=== PATIENT | male | born 1935 | race Caucasian/White ===

== ENCOUNTER 2017-02-14 11:07 | Inpatient (IN) | payer OTHER, MEDICARE ==
[~2017-02-14] VITALS: Ht 162.6 cm; Wt 53.1 kg
[~2017-02-14 11:07] MED LIST: ALLOPURINOL100 M1 PO; ALUPENT 20MG TA20 MG PO; ASPIRIN EC81 M1 PO; ATENOLOL25 MG PO; ATORVASTATIN CA80 M1 PO; ELIQUIS5 M1 PO; LISINOPRIL10 M1 PO; METOPROLOL SUCC50 M2 PO; MEVACOR20 MG PO; OMEPRAZOLE20 M2 PO; TOPROL XL50 M1 PO; VITAMIN B121000 MCG PO; XARELTO10 MG PO
--- NOTE | 2017-02-14 11:13 | NUR ---
81 YO MALE TO TRIAGE C/O DIFF BREATHING SINCE TUESDAY. PT ONLY TO SPEAK 2-3 WORDS AT A TIME. RA SATS 70s AT THIS TIME, PT TAKEN TO ER ROOM 12. PT RECENTLY HAD A PACEMAKER PLACED IN EARLY JANUARY 2017. DENEIS CHEST PAIN
[2017-02-14 11:45] LABS: ABSOLUTE BASOPHIL COUNT 0 /CUMM (0.0-0.2); ABSOLUTE EOSINOPHIL COUNT 0.3 /CUMM (0.0-0.7); ABSOLUTE GRANULOCYTE CT 9.6 /CUMM (1.4-6.5); ABSOLUTE LYMPH COUNT 0.5 /CUMM (1.2-3.4); ABSOLUTE MONOCYTE COUNT 0.7 /CUMM (0.10-0.60); BASOPHIL % 0.1 % (0.0-2.0); EOSINOPHIL % 2.4 % (0-5); HEMATOCRIT 43.2 % (42-52); MEAN CORPUSCULAR HGB 24.5 PG (27.0-31.0); MEAN CORPUSCULAR HGB CONC 32.1 G/DL (33.0-37.0); MEAN CORPUSCULAR VOLUME 76.3 FL (80.0-94.0); MEAN PLATELET VOLUME 7.4 FL (7.4-10.4); RBC DISTRIBUTION WIDTH 15.9 % (11.5-14.5); RED BLOOD CELL CT 5.66 /CUMM (4.70-6.10)
--- NOTE | 2017-02-14 11:50 | ED DYSPNEA/ASTHMA COMPLAINT ---
See Addendum History of Present Illness General Chief Complaint: Dyspnea (COPD, CHF, Other) Stated Complaint: SOB Source: patient, old records Exam Limitations: no limitations Vital Signs & Intake/Output Vital Signs & Intake/Output Vital Signs Date Time Temp Pulse Resp B/P B/P Pulse O2 O2 Flow FiO2 Mean Ox Delivery Rate 02/14 1327 98.9 81 22 93/54 88 Venti Mask 55% 02/14 1253 96 Venti Mask 60% 02/14 1250 98.3 87 22 93/50 98 Venti Mask 60% 02/14 1156 100 Non 100% ReBreather 02/14 1119 96.8 22 96 Non 100% ReBreather 02/14 1118 107 28 104/64 63 Room Air Allergies Coded Allergies: NO KNOWN ALLERGIES (06/04/12) Reconcile Medications Allopurinol 100 MG TABLET 2 TAB PO DAILY GOUT (Reported) Amiodarone HCl 200 MG TABLET 2 TAB PO DAILY HEART HEALTH (Reported) Apixaban (Eliquis) 5 MG TABLET 1 TAB PO BID Blood thinner Aspirin (Ecotrin*) 81 MG TABLET.DR 1 TAB PO DAILY HEART HEALTH (Reported) Atorvastatin Calcium 40 MG TABLET 1 TAB PO QPM HIGH CHOLESTROL (Reported) Furosemide 20 MG TABLET 1 TAB PO DAILY HEART HEALTH (Reported) Lisinopril 2.5 MG TABLET 1 TAB PO DAILY HIGH BLOOD PRESSURE (Reported) Omeprazole 20 MG CAPSULE.DR 1 CAP PO DAILY ACID REFLUX (Reported) Core Measure Meds Pre-Hospital [facility] Triage Note: 81 YO MALE TO TRIAGE C/O DIFF BREATHING SINCE TUESDAY. PT ONLY TO SPEAK 2-3 WORDS AT A TIME. RA SATS 70s AT THIS TIME, PT TAKEN TO ER ROOM 12. PT RECENTLY HAD A PACEMAKER PLACED IN EARLY JANUARY 2017. [facility] CHEST PAIN Triage Nurses Notes Reviewed? yes Onset: 3 days Duration: day(s):, constant, continues in ED, getting worse Timing: recent history Severity: severe Activities at Onset: none Prior Episodes/Possible Cause: illness exposure Modifying Factors: Improves With: rest. Worsens With: movement. Associated Symptoms: cough, lightheadedness, wheezing, weakness HPI: 3 days prior to admission patient complains of nonproductive cough increasing shortness of breath dyspnea on exertion. He denies fever chills nausea vomiting diarrhea abdominal pain chest pain headache dysuria rash bleeding. 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 Past History Medical History Any Pertinent Medical History? 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 AICD (automatic internal cardiac defibrillator) FH: heart attack FATHER FH: cancer MOTHER (smoker ). . FH: abdominal aortic aneurysm Hx Contributory? No Review of Systems Review of Systems Constitutional: Reports: see HPI, weakness. EENTM: Reports: no symptoms. Respiratory: Reports: see HPI, cough, short of breath, wheezing. Cardiovascular: Reports: no symptoms. GI: Reports: no symptoms. Genitourinary: Reports: no symptoms. Musculoskeletal: Reports: no symptoms. Skin: Reports: no symptoms. Neurological/Psychological: Reports: no symptoms. Hematologic/Endocrine: Reports: no symptoms. Immunologic/Allergic: Reports: no symptoms. All Other Systems: Reviewed and Negative Physical Exam Physical Exam General Appearance: well developed/nourished, alert, awake, anxious, severe distress, thin Head: atraumatic, normal appearance Eyes: Bilateral: normal appearance, PERRL, EOMI. Ears, Nose, Throat: normal pharynx, normal ENT inspection Neck: normal inspection, supple, full range of motion, no midline tenderness Respiratory: chest non-tender, decreased breath sounds, accessory muscle use, crackles, wheezing, respiratory distress Cardiovascular: regular rate/rhythm, normal peripheral pulses, norml femoral pulses equa Peripheral Pulses: 4+ carotid (R), 4+ carotid (L) Gastrointestinal: normal bowel sounds, soft, non-tender, no organomegaly Extremities: normal inspection, normal capillary refill, normal range of motion, no edema Neurologic/Psych: no motor/sensory deficits, awake, alert, oriented x 3, adventure guide II- XII nml as tested Skin: intact, normal color, warm/dry Lymphatic: no anterior cervical deandre Core Measures ACS in differential dx? Yes ASA ordered for poss ACS? No-ACS ruled out Severe Sepsis Present: No Septic Shock Present: No Progress Differential Diagnosis: AMI, CHF, COPD, pneumonia, pneumothorax Plan of Care: Orders Procedure Date/time Status Regular Diet 02/14 L Active Patient Data 02/14 1359 Active OXYGEN SETUP (GEN) 02/14 1314 Active Saline Lock 02/14 1314 Active Admit to inpatient 02/14 1314 Active Vital Signs 02/14 1314 Active Activity/Ambulation 02/14 1314 Active BLOOD CULTURE 02/14 1314 Active Code Status 02/14 1314 Active Intake & Output 02/14 1251 Active ARTERIAL BLOOD GAS (GEN) 02/14 1127 Complete BLOOD CULTURE 02/14 1127 Active TROPONIN LEVEL 02/14 112 Complete PROTHROMBIN TIME 02/14 112 Complete MAGNESIUM 02/14 112 Complete COMPREHENSIVE METABOLIC PANEL 02/14 112 Complete CBC WITHOUT DIFFERENTIAL 02/14 1127 Complete B-TYPE NATRIURETIC PEP (BNP) 02/14 112 Complete EKG 02/14 1108 Active Laboratory Tests 02/14/17 1134: Anion Gap 16, Estimated GFR > 60, BUN/Creatinine Ratio 21.8, Glucose 207 H, Calcium 8.4, Magnesium 2.2, Total Bilirubin 1.4 H, AST 37, ALT 85 H, Alkaline Phosphatase 140 H, Troponin I < 0.01, Nkb-S-Fzteefgawjn Pept 2430 H, Total Protein 5.9 L, Albumin 3.1 L, Globulin 2.8, Albumin/Globulin Ratio 1.1, PT 32.4 H, INR 3.12 H, CBC w Diff NO MAN DIFF REQ, RBC 5.66, MCV 76.3 L, MCH 24.5 L, RDW 15.9 H, MPV 7.4, Gran % 87.0 H, Lymphocytes % 4.4 L, Monocytes % 6.1, Eosinophils % 2.4, Basophils % 0.1, Absolute Granulocytes 9.6 H, Absolute Lymphocytes 0.5 L, Absolute Monocytes 0.7 H, Absolute Eosinophils 0.3, Absolute Basophils 0, PUBS MCHC 32.1 L 02/14/17 1040: pH 7.48 H, pCO2 27 L, pO2 50 *L, HCO3 20 L, ABG O2 Sat (Measured) 85.0 L, O2 Concentration % 55%, O2 Delivery Method VENTI MASK, Phlebotomy Draw Site RIGHT BRACHIAL Microbiology 02/14 1330 BLOOD: Blood Culture - RECD 02/14 1325 BLOOD: Blood Culture - RECD Diagnostic Imaging: Viewed by Me: Radiology Read. Discussed w/RAD: Radiology Read. CXR Impression: Moderate left pneumothorax shows mild increased in size since . There are bilateral airspace opacities consistent with infiltrates new since the previous study. New pacer electrodes in right atrium and right ventricle. No change in CABG findings from previous study. Initial ED EKG: normal p-waves, normal sinus rhythm, LBBB, no ST T wave changes Prior EKG: changed Rhythm Strip: normal sinus rhythm Departure Departure Time of Disposition: 1330 Disposition: STILL A PATIENT Condition: Stable Clinical Impression Primary Impression: Pneumonia Qualifiers: Pneumonia type: due to unspecified organism Laterality: bilateral Lung location: unspecified part of lung Qualified Code: J18.9 - Pneumonia, unspecified organism Secondary Impressions: Pneumothorax on left Referrals: NEEMA CRAIN MD (PCP/Family) Departure Forms: Customer Survey General Discharge Information Admission Note Spoke With: RASHAD WALKER,COURTNEY Pop Documentation of Exam: Documentation of any treatments & extenuating circumstances including Concerns Regarding Discharge (functional status, medication knowledge or non-compliance, living conditions, etc.) that warrant an admission rather than observation: Supplemental oxygen serial beta agonist nebs IV antibiotics pulmonary evaluation plastic surgery evaluation medication adjustment continuing care discharge planning Critical Care Note Critical Care Note Critical Care Time: 30-74 min (40)
[2017-02-14 11:51] LABS: PT 32.4 SEC (9.4-12.5)
--- NOTE | 2017-02-14 11:53 | NUR ---
PORT CXR AT BEDSIDE.
[2017-02-14 12:03] LABS: PLATELET COUNT 360 /CUMM (130-400)
--- NOTE | 2017-02-14 12:05 | NUR ---
TRIAGE NOTE ACKNOWLEDGED AND RN CARE ASSUMED PT EVALUATED BY DR MATT UPON ARRIVAL TO ROOM # 12. PT WAS ON 100% NRB WITH 02 SATS IN 90's. PT HAD O2 SATS IN 70'S ON R.A. IN TRIAGE. NRB WAS TAKEN OFF BY PT AND PUT ON O2 VIA N/C AT 6 LPM AND O2 SATS DECREASED TO 73%. DR MATT NOTIFIED. PT PUT ON VENTIMASK AT 50% AND RESP THERAPIST CALLED TO EVALUATE, PERFORM ABG'S AND ADMINISTER COMBI MED [facility].
--- NOTE | 2017-02-14 12:12 | NUR ---
ABG'S PERFORMED BY RESP THERAPIST MED [facility] TX'S ADMINISTERED TO PT BY SAME. PT NOW ON 60% VENTIMASK WITH O2 SATS 96%
[2017-02-14] MEDS ORDERED: LISINOPRIL2.5 M1 PO (12:42)
[2017-02-14] MEDS ORDERED: ATORVASTATIN CA40 M1 PO (12:43)
[2017-02-14] MEDS ORDERED: AMIODARONE HCL200 M1 PO (12:48)
[2017-02-14] MEDS ORDERED: FUROSEMIDE20 M1 PO (12:48)
--- NOTE | 2017-02-14 13:03 | RADIOLOGY REPORT ---
EXAMINATION: XR PORTABLE CHEST CLINICAL INFORMATION: SOB future of mesothelioma. COMPARISON: None TECHNIQUE: Portable frontal view of the chest was obtained. FINDINGS: There is a moderate left pneumothorax which was visualized as far as 06/08/2016. There is complete new opacification of the left lung and right midlung suggestive of infiltrate. Heart size and pulmonary vascularity is normal. New dual pacer electrodes are in right atrium and right ventricle.. There is mediastinal nannette and median sternotomy sutures from previous CABG. No gross bony abnormality seen. IMPRESSION: Moderate left pneumothorax shows mild increased in size since 06/16/2016. There are bilateral airspace opacities consistent with infiltrates new since the previous study. New pacer electrodes in right atrium and right ventricle. No change in CABG findings from previous study.
--- NOTE | 2017-02-14 14:31 | NUR ---
BED ASSIGNMENT 235-1
--- NOTE | 2017-02-14 14:49 | NUR ---
PT MEDICATTED WITH 1 G ROCEPHIN IV AND 100 MG DOXYCYCLINE IN 100 ML N/S OVER ONE HOUR. PT REMAINS ON 55 % VENTIMASK, O2 SATS 93-95%
--- NOTE | 2017-02-14 17:12 | NUR ---
PT ADMISSION CHANGED TO ICU
--- NOTE | 2017-02-14 17:12 | NUR ---
PLACED ON HFNC AT 40LPM WITH 55% O2 PER DR MCLAUGHLIN. PT CAMPOS WELL SATS 92%
--- NOTE | 2017-02-14 17:43 | Cons- CRCU ---
General Information and HPI Consulting Request Date of Consult: 02/14/17 Requested By: ED History of Present Illness: This is a 81-year-old unfortunate gentleman with recent diagnosis of malignant mesothelioma. He did have a biopsy of his rectal she and in the recent past she had had a CT scan of the chest abdomen and pelvis at the [facility]. It did show that he has a thick pleural rind and significant effusion suggestive of malignant mesothelioma with direct extension into his abdominal wall. The recent past his overall performance status has been poor and he has lost significant amount of weight. In the past 3 days he been having a nonproductive cough with severe dyspnea on minimal exertion as he was short of breath at rest he came into the emergency room. In the emergency room he was found to be profoundly hypoxemic with O2 sat of 77% on room air. He was treated initially with the nasal cannula now subsequently on a Ventimask saturating 85-87%. He also has history of severe cardiomyopathy with low ejection fraction. Recently he was treated at [facility] and he did have a pacemaker not a defibrillator. He also has had a slowly enlarging left-sided apical pneumothorax for many years and as he does have severe COPD and chronic lung disease and as this effusion and his small pneumothorax was stable he was treated conservatively without any surgery on her chest tube placement. No yellow-green sputum no significant fever. Patient has not been on steroids. He does have paroxysmal atrial fibrillation for which she is on amiodarone and he is on appropriate anticoagulation. Since coming here his chest x-ray showed diffuse bilateral pulmonary infiltrate with both pleural and parenchymal opacities. Patient has been on amiodarone as well. His medications were reviewed. He has had significant loss of weight, nausea, abdominal discomfort and pain and inability to eat anything. He denies fever chills nausea vomiting diarrhea abdominal pain chest pain headache dysuria rash bleeding. Reports recent placement of permanent pacemaker not a defibrillator. Allergies/Medications Allergies: Coded Allergies: NO KNOWN ALLERGIES (06/04/12) Home Med List: Allopurinol 100 MG TABLET 2 TAB PO DAILY GOUT (Reported) Amiodarone HCl 200 MG TABLET 2 TAB PO DAILY HEART HEALTH (Reported) Apixaban (Eliquis) 5 MG TABLET 1 TAB PO BID Blood thinner Aspirin (Ecotrin*) 81 MG TABLET.DR 1 TAB PO DAILY HEART HEALTH (Reported) Atorvastatin Calcium 40 MG TABLET 1 TAB PO QPM HIGH CHOLESTROL (Reported) Furosemide 20 MG TABLET 1 TAB PO DAILY HEART HEALTH (Reported) Lisinopril 2.5 MG TABLET 1 TAB PO DAILY HIGH BLOOD PRESSURE (Reported) Omeprazole 20 MG CAPSULE. 1 CAP PO DAILY ACID REFLUX (Reported) Review of Systems Review of Systems Constitutional: Reports: see HPI. 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 AICD (automatic internal cardiac defibrillator) FH: heart attack FATHER FH: cancer MOTHER (smoker ). . FH: abdominal aortic aneurysm Psychosocial History Who Do You Live With? self Services at Home: None Functional Ability ADLs Independent: dressing, eating, toileting, bathing. Ambulation: independent IADLs Independent: shopping, housework, finances, food prep, telephone, transportation , medication admin. Exam & Diagnostic Data Last 24 Hrs of Vital Signs/I&O Vital Signs Date Time Temp Pulse Resp B/P B/P Pulse O2 O2 Flow FiO2 Mean Ox Delivery Rate 02/14 1623 97.8 81 20 95/53 92 Venti Mask 55% 02/14 1327 98.9 81 22 93/54 88 Venti Mask 55% 02/14 1253 96 Venti Mask 60% 02/14 1250 98.3 87 22 93/50 98 Venti Mask 60% 02/14 1156 100 Non 100% ReBreather 02/14 1119 96.8 22 96 Non 100% ReBreather 02/14 1118 107 28 104/64 63 Room Air Intake & Output 02/14 1600 02/14 0800 02/14 0000 Intake Total 100 Output Total Balance 100 Intake, IV 100 Patient 125 lb Weight Weight Reported by Patient Measurement Method Last 48 Hrs of Labs/Tang: Laboratory Tests 02/14/17 1134: Anion Gap 16, Estimated GFR > 60, BUN/Creatinine Ratio 21.8, Glucose 207 H, Calcium 8.4, Magnesium 2.2, Total Bilirubin 1.4 H, AST 37, ALT 85 H, Alkaline Phosphatase 140 H, Troponin I < 0.01, Jbs-H-Pdbrhbxeusf Pept 2430 H, Total Protein 5.9 L, Albumin 3.1 L, Globulin 2.8, Albumin/Globulin Ratio 1.1, PT 32.4 H, INR 3.12 H, CBC w Diff NO MAN DIFF REQ, RBC 5.66, MCV 76.3 L, MCH 24.5 L, RDW 15.9 H, MPV 7.4, Gran % 87.0 H, Lymphocytes % 4.4 L, Monocytes % 6.1, Eosinophils % 2.4, Basophils % 0.1, Absolute Granulocytes 9.6 H, Absolute Lymphocytes 0.5 L, Absolute Monocytes 0.7 H, Absolute Eosinophils 0.3, Absolute Basophils 0, PUBS MCHC 32.1 L 02/14/17 1040: pH 7.48 H, pCO2 27 L, pO2 50 *L, HCO3 20 L, ABG O2 Sat (Measured) 85.0 L, O2 Concentration % 55%, O2 Delivery Method VENTI MASK, Phlebotomy Draw Site RIGHT BRACHIAL Assessment/Plan Impression/Plan: Physical Exam General Appearance: well developed/nourished, alert, awake, anxious, severe distress, thin Head: atraumatic, normal appearance Eyes: Bilateral: normal appearance, PERRL, EOMI. Ears, Nose, Throat: normal pharynx, normal ENT inspection Neck: normal inspection, supple, full range of motion, no midline tenderness Respiratory: chest non-tender, decreased breath sounds, accessory muscle use, crackles, wheezing, respiratory distress Cardiovascular: regular rate/rhythm, normal peripheral pulses, norml femoral pulses equa Peripheral Pulses: 4+ carotid (R), 4+ carotid (L) Gastrointestinal: normal bowel sounds, soft, non-tender, no organomegaly Extremities: normal inspection, normal capillary refill, normal range of motion, no edema Neurologic/Psych: no motor/sensory deficits, awake, alert, oriented x 3, 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 New dual pacer electrodes in the right atrium and right ventricle. Status post CABG. IMPRESSION This is an unfortunate 81-year-old gentleman with history of severe cardiomyopathy, paroxysmal atrial fibrillation on amiodarone and anticoagulation , previous history of coronary artery disease with CABG, cardiomyopathy with low ejection fraction, moderate mitral insufficiency with mild to moderate tricuspid insufficiency, Recently diagnosed agg malignant mesothelioma (bx done from his abd wall rectus sheath), chronic left pleural effusion now has * Severe hypoxemic respiratory failure which appears to be combination of factors which include rapidly progressing malignant mesothelioma with bilateral pleural effusion, thick pleural rind in the right side, bilateral airspace disease suggestive of either fluid overload or drug-induced lung disease versus advancing mesothelioma. Patient may be in mild congestive heart failure aswell, however his blood pressure is low with low ejection fraction. * Worsening performance status in the recent past with poor appetite related to malignant mesothelioma and severe cardiomyopathy ( recent bx at [facility] c/w agg malignant mesothelioma * Chronic left pneumothorax which is slowly increasing in size is also contributing to shortness of breath * Severe lung disease with emphysema with significant pleural blebs, significant bronchiectasis within the anterior medial aspect of the right upper lobe with rounded atelectasis and chronic pleural parenchymal scarring with previous mucous plugging and chronic lung disease * Significant valvular heart disease with mitral regurgitation and tricuspid regurgitation * Severe cardiomyopathy with low ejection fraction with valvular heart disease with low flow state with low blood pressure * Paroxysmal atrial fibrillation now appears to be in sinus rhythm with left bundle branch block * Chronic kidney disease * 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 However at this time the patient wishes to continue his rx at [facility] and he wants maximum conservative therapy. He does not wish any life- support. He does not wish noninvasive ventilation, or dialysis or mechanical ventilation or Vasopressors. He is agreeable to vasoactive agents like dobutamine. He does have rapidly advancing malignancy, cardiomyopathy and severe lung disease. I did review some of his records from the [facility] and his prognosis appears to be extremely grim and we will honor the patient's wishes. We will make him DNR/DNI with conservative care only. * Admit him to the ICU with high flow oxygen * Obtaine large bore IVs * Broad-spectrum antibiotics with ceftriaxone and Doxy. We'll give him 1 dose of Vanco * Solumedrol 80 mg 1 dose now * Albuterol and ipratropium nebulizer therapy around the clock * Discontinue amiodarone * Keep his O2 sat 92-94% * Discontinue his antihypertensive medications * Continue allopurinol and proton pump inhibitor * Continue his eloquis * Maynard catheter * CT scan of the chest abdomen and pelvis without any contrast to better assess his pleura, abdominal wall and to see if he has pulmonary edema versus pulmonary infiltrates suggestive of progressive mesothelioma or drug induced lung disease * If his blood pressure comes up we will try a dose of Lasix. * If he does not have adequate urine output in the future we'll start him on a low dose dobutamine drip at 2.5 mics and then up to 5 mics if his blood pressure were to tolerate and then institute diuretics * Cardiology evaluation * Follow sugar, will only cover him with sliding scale insulin if his blood sugars more than 250 * No CPAP or BiPAP * Vitamin B12 2000 units by mouth daily * Recheck his thyroid function tests * No therapy is necessary for his pneumothorax. 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 * Overall prognosis is dismal due to multiple terminal illnesses which the patient has. If he were to get worse then patient wishes to be made Comfort Care. I did discuss this over with his over the telephone and she is agreeable I did also discuss with the physicians at [facility] Patient is critically ill total time spent 50 minutes Consult Acknowledgment - Thank you for your consult request.
--- NOTE | 2017-02-14 18:01 | NUR ---
DR MCLAUGHLIN IN TO EVALUATE PT PT CONTINUES TO TOLERATE HI FLOW N/C. O2 SATS 88 - 91 %
--- NOTE | 2017-02-14 18:53 | NUR ---
MARTINO INSERTION ATTEMPTED WITH 16 F MARTINO UNSUCCESSFUL SECONDARY TO ENLARGED PROSTATE. MD NOTIFIED. RECEIVED ORDER TO ATTEMPT WITH COUDE TIP. 18 F COUDE TIP CATHETER INSERTED SUCCESSFULLY. 150 ML CLEAR DARK YELLOW URINE OUTPUT NOTED.
--- NOTE | 2017-02-14 19:09 | Cons- Cardiology ---
General Information and HPI Consulting Request Date of Consult: 02/14/17 Requested By: Dr. Don Mcmahan Reason for Consult: Respiratory failure; cardiomyopathy; atrial tachyarhythmias; recent PPM Source of Information: patient, old records History of Present Illness: The patient is a very nice 81 year old male known to me from multiple office visits. He is now admitted to the hospital with worsening hypoxemic respiratory failure which is likely multifactorial (underlying pulmonary disease; mesothelioma; left PTX, and possibly superimposed acute on chronic HFrEF). From a cardiac standpoint, the patient has a history of known CAD and prior CABG. More recently the patient had issues with persistent episodes of atrial fluitter with a rapid ventricular rate. This was accompanied by progressive deterioration in the patient's LV function. When last seen by me in the office, I discussed the cardiac situation in detail with the patient and his MDs at the [facility] (Dr. Rupal Rowan) and the patient elected to pursue his further cardiac interventions at the [facility] for primarily insurance related reasons. Unfortunately those records were not available to me. He did apparently have a recent PPM place (no AICD) which raises the possibility that his LV function may have improved after control of his atrial flutter. Allergies/Medications Allergies: Coded Allergies: NO KNOWN ALLERGIES (06/04/12) Home Med List: Allopurinol 100 MG TABLET 2 TAB PO DAILY GOUT (Reported) Amiodarone HCl 200 MG TABLET 2 TAB PO DAILY HEART HEALTH (Reported) Apixaban (Eliquis) 5 MG TABLET 1 TAB PO BID Blood thinner Aspirin (Ecotrin*) 81 MG TABLET.DR 1 TAB PO DAILY HEART HEALTH (Reported) Atorvastatin Calcium 40 MG TABLET 1 TAB PO QPM HIGH CHOLESTROL (Reported) Furosemide 20 MG TABLET 1 TAB PO DAILY HEART HEALTH (Reported) Lisinopril 2.5 MG TABLET 1 TAB PO DAILY HIGH BLOOD PRESSURE (Reported) Omeprazole 20 MG CAPSULE.DR 1 CAP PO DAILY ACID REFLUX (Reported) Current Medications: Current Medications Sig/Evonne Start time Last Medication Dose Route Stop Time Status Admin Albuterol Sulfate 3 ML ONCE ONE 02/14 1330 DC INH 02/14 1331 Albuterol Sulfate 3 ML ONCE ONE 02/14 1200 DC 02/14 INH 02/14 1201 1156 Ceftriaxone Sodium 0 .STK-MED ONE 02/14 1425 DC .ROUTE Ceftriaxone Sodium 1,000 MG ONCE ONE 02/14 1315 DC 02/14 IV 02/14 1316 1432 Doxycycline Hyclate 100 MG ONCE ONE 02/14 1315 DC 02/14 Sodium Chloride 100 ML IV 02/14 1420 1448 Ipratropium Pinole 2.5 ML ONCE ONE 02/14 1200 DC 02/14 INH 02/14 1201 1155 Past History Travel History Traveled to [place] past 21 day No Medical History Neurological: NONE EENT: NONE Cardiovascular: aflutter, CAD, hyperlipidemia Respiratory: NONE Gastrointestinal: NONE Hepatic: NONE Musculoskeletal: gout Blood Disorders: NONE Cancer(s): MESOTHELEOMA BLOCK TRIMMER/Reproductive: NONE Surgical History Surgical History: CABG, hernia repair-inguinal Family History Relations & Conditions If Any: BROTHER (smoker ). AICD (automatic internal cardiac defibrillator) FH: heart attack FATHER FH: cancer MOTHER (smoker ). . FH: abdominal aortic aneurysm Psychosocial History Who Do You Live With? self Services at Home: None Functional Ability ADLs Independent: dressing, eating, toileting, bathing. Ambulation: independent IADLs Independent: shopping, housework, finances, food prep, telephone, transportation , medication admin. Exam & Diagnostic Data Vital Signs and I&O Vital Signs Date Time Temp Pulse Resp B/P B/P Pulse O2 O2 Flow FiO2 Mean Ox Delivery Rate 02/14 1818 81 22 98/52 91 Nasal 55% Cannula 02/14 1623 97.8 81 20 95/53 92 Venti Mask 55% 02/14 1327 98.9 81 22 93/54 88 Venti Mask 55% 02/14 1253 96 Venti Mask 60% 02/14 1250 98.3 87 22 93/50 98 Venti Mask 60% 02/14 1156 100 Non 100% ReBreather 02/14 1119 96.8 22 96 Non 100% ReBreather 02/14 1118 107 28 104/64 63 Room Air Intake & Output 02/14 1600 02/14 0802/14 0000 02/13 1600 02/13 0800 02/13 0000 Intake Total 100 Output Total Balance 100 Intake, IV 100 Patient 125 lb Weight Weight Reported by Patient Measurement Method Physical Exam: General Appearance: This ill appearing WM; well developed, alert, awake, anxious , severe distress Head: normal Bilateral: normal appearance, PERRL, EOMI. Ears, Nose, Throat: normal pharynx, normal ENT inspection Neck: normal inspection, supple, JVP ill defined; carotids normal Respiratory: chest non-tender, decreased breath sounds, accessory muscle use, crackles, wheezing, respiratory distress Cardiovascular: regular rate/rhythm, no audible murmurs Peripheral Pulses: normal bilaterally Gastrointestinal: normal bowel sounds, soft, non-tender, no organomegaly Extremities: normal inspection, normal capillary refill, normal range of motion, no edema Neurologic/Psych: non focal Labs/Tang Results: Laboratory Tests 02/14 02/14 1134 1040 Blood Gas pH (7.35 - 7.45 PH) 7.48 H pCO2 (35 - 45 TORR) 27 L pO2 (80 - 100 TORR) 50 *L HCO3 (21 - 28 MEQ/L) 20 L ABG O2 Sat (Measured) (>96.0 %) 85.0 L O2 Concentration % 55% O2 Delivery Method VENTI MASK Chemistry Sodium (137 - 145 mmol/L) 133 L Potassium (3.5 - 5.1 mmol/L) 4.6 Chloride (98 - 107 mmol/L) 94 L Carbon Dioxide (22 - 30 mmol/L) 23 Anion Gap (5 - 16) 16 BUN (9 - 20 mg/dL) 24 H Creatinine (0.7 - 1.2 mg/dL) 1.1 Estimated GFR (>60 ml/min) > 60 BUN/Creatinine Ratio (7 - 25 %) 21.8 Glucose (65 - 99 mg/dL) 207 H Calcium (8.4 - 10.2 mg/dL) 8.4 Magnesium (1.6 - 2.3 mg/dL) 2.2 Total Bilirubin (0.2 - 1.3 mg/dL) 1.4 H AST (17 - 59 U/L) 37 ALT (21 - 72 U/L) 85 H Alkaline Phosphatase (< 127 U/L) 140 H Troponin I (<0.11 ng/ml) < 0.01 [id number]-[id number] Pept (<125 pg/mL) 2430 H Total Protein (6.3 - 8.2 g/dL) 5.9 L Albumin (3.5 - 5.0 g/dL) 3.1 L Globulin (1.9 - 4.2 gm/dL) 2.8 Albumin/Globulin Ratio (1.1 - 2.2 %) 1.1 Coagulation PT (9.4 - 12.5 SEC) 32.4 H INR (0.90 - 1.17) 3.12 H Hematology CBC w Diff NO MAN DIFF REQ WBC (4.8 - 10.8 /CUMM) 11.0 H RBC (4.70 - 6.10 /CUMM) 5.66 Hgb (14.0 - 18.0 G/DL) 13.9 L Hct (42 - 52 %) 43.2 MCV (80.0 - 94.0 FL) 76.3 L MCH (27.0 - 31.0 PG) 24.5 L RDW (11.5 - 14.5 %) 15.9 H Plt Count (130 - 400 /CUMM) 360 MPV (7.4 - 10.4 FL) 7.4 Gran % (42.2 - 75.2 %) 87.0 H Lymphocytes % (20.5 - 51.1 %) 4.4 L Monocytes % (1.7 - 9.3 %) 6.1 Eosinophils % (0 - 5 %) 2.4 Basophils % (0.0 - 2.0 %) 0.1 Absolute Granulocytes (1.4 - 6.5 /CUMM) 9.6 H Absolute Lymphocytes (1.2 - 3.4 /CUMM) 0.5 L Absolute Monocytes (0.10 - 0.60 /CUMM) 0.7 H Absolute Eosinophils (0.0 - 0.7 /CUMM) 0.3 Absolute Basophils (0.0 - 0.2 /CUMM) 0 PUBS MCHC (33.0 - 37.0 G/DL) 32.1 L Miscellaneous Phlebotomy Draw Site RIGHT BRACHIAL Diagnostic Data CXR Results FINDINGS: There is a moderate left pneumothorax which was visualized as far as 06/08/2016. There is complete new opacification of the left lung and right midlung suggestive of infiltrate. Heart size and pulmonary vascularity is normal. New dual pacer electrodes are in right atrium and right ventricle.. There is mediastinal nannette and median sternotomy sutures from previous CABG. No gross bony abnormality seen. IMPRESSION: Moderate left pneumothorax shows mild increased in size since 06/16/2016. There are bilateral airspace opacities consistent with infiltrates new since the previous study. New pacer electrodes in right atrium and right ventricle. No change in CABG findings from previous study. Assessment/Plan Assessment/Plan Assessment: 1. Worsening respiratory distress / hypoxemic respiratory failure - likely multifactorial as noted above 2. History of atrial flutter 3. Recent PPM placement 4. Mesothelioma 5. History of CAD / CABG 6. Cardiomyopathy; ischemic vs tachycardiac mediated 7. Worsening left PTX Recommdations: - Telemetry monitoring - Review cardiology records from [facility] - Continue all management and supportive care as per the Pulmonary / Critical care team - Repeat echocardiogram to reassess LV systolic function and severity of MR - Remember that the patient has a history of rapid atrial flutter which was poorly tolerated with associated deterioration of his LV function. The amiodarone may be assisting with maintenance of sinus rhythm and , even though holding it may be flores from a pulmonary standpoint, discontinuation could precipitate recurrence of AF and further deterioration in LV status and hemodynamic status. - Lisinopril and lasix on hold Consult Acknowledgment - Thank you for your consult request.
--- NOTE | 2017-02-14 20:30 | History & Physical ---
General Information and HPI MD Statement: I have seen and personally examined LISA ELDER and documented this H&P. The patient is a 81 year old M who presented with a patient stated chief complaint of [shortness of breath]. Source of Information: patient, old records History of Present Illness: Patient is 81-year-old male with past medical history of mesothelioma, significant cardiomyopathy with low EF ,pacemaker placement(placed 8 days ago at the [facility]), hypertension, CAD status post CABG, gout, atrial flutter on Eliquis, left-sided pneumothorax sustained after a fall in June 2015(managed conservatively at the hospital), heart failure with preserved ejection fraction who presented to the ED with a chief complaint of shortness of breath and nonproductive cough for the past 3 days. Patient reports that he had a pacemaker insertion a day ago at [facility]. Post the procedure he has been feeling weak, short of breath and having nonproductive cough. His symptoms got worse and over the past 3 days he hasn't been able to walk more than 2-3 feet. He denies any fever, chills, nausea, vomiting, abdominal pain, chest pain, urinary or bowel symptoms. He admits to having lost significant amount of weight in the past few months after his diagnosis of malignant mesothelioma. In the ED patient was found to have a temperature of 96.8, pulse 117, respiration 28, blood pressure 104/64 and saturating 63% on room air. He was put on 100% nonrebreather with improvement of sats to 96% Labs showed a white count of 11 with no bands, H&H 13.9/43.2, sodium 133, potassium 4.6, bun 24, creatinine 1.1, glucose 207, total bili 1.4, AST 37, ALT 85, alkaline phosphatase 140, troponin 0.01, proBNP 2430, INR 3.12 Chest x-ray showed moderate left pneumothorax mild increased in size since 06/16.There are bilateral airspace opacities consistent with infiltrates new since the previous study. New pacer electrodes in right atrium and right ventricle. Patient received neb treatments IV doxycycline, IV ceftriaxone in the ED. Allergies/Medications Allergies: Coded Allergies: NO KNOWN ALLERGIES (06/04/12) Home Med list Allopurinol 100 MG TABLET 2 TAB PO DAILY GOUT (Reported) Amiodarone HCl 200 MG TABLET 2 TAB PO DAILY HEART HEALTH (Reported) Apixaban (Eliquis) 5 MG TABLET 1 TAB PO BID Blood thinner Aspirin (Ecotrin*) 81 MG TABLET. 1 TAB PO DAILY HEART HEALTH (Reported) Atorvastatin Calcium 40 MG TABLET 1 TAB PO QPM HIGH CHOLESTROL (Reported) Furosemide 20 MG TABLET 1 TAB PO DAILY HEART HEALTH (Reported) Lisinopril 2.5 MG TABLET 1 TAB PO DAILY HIGH BLOOD PRESSURE (Reported) Omeprazole 20 MG CAPSULE. 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 AICD (automatic internal cardiac defibrillator) FH: heart attack FATHER FH: cancer MOTHER (smoker ). . FH: abdominal aortic aneurysm Psychosocial History Who Do You Live With? self Services at Home: None Functional Ability ADLs Independent: dressing, eating, toileting, bathing. Ambulation: independent IADLs Independent: shopping, housework, finances, food prep, telephone, transportation , medication admin. Review of Systems Review of Systems Constitutional: Reports: malaise, weakness. EENTM: Reports: no symptoms. Cardiovascular: Reports: orthopena. Respiratory: Reports: cough, short of breath, sputum production. GI: Reports: no symptoms. Genitourinary: Reports: no symptoms. Musculoskeletal: Reports: no symptoms. Skin: Reports: no symptoms. Exam & Diagnostic Data Last 24 Hrs of Vital Signs/I&O Vital Signs Date Time Temp Pulse Resp B/P B/P Pulse O2 O2 Flow FiO2 Mean Ox Delivery Rate 02/14 2039 97.4 82 22 101/57 92 Nasal 55% Cannula 02/14 1922 83 20 97/58 92 Nasal 55% Cannula 02/14 1818 81 22 98/52 91 Nasal 55% Cannula 02/14 1623 97.8 81 20 95/53 92 Venti Mask 55% 02/14 1327 98.9 81 22 93/54 88 Venti Mask 55% 02/14 1253 96 Venti Mask 60% 02/14 1250 98.3 87 22 93/50 98 Venti Mask 60% 02/14 1156 100 Non 100% ReBreather 02/14 1119 96.8 22 96 Non 100% ReBreather 02/14 1118 107 28 104/64 63 Room Air Intake & Output 02/14 1600 02/14 0800 02/14 0000 Intake Total 100 Output Total Balance 100 Intake, IV 100 Patient 56.699 kg Weight Weight Reported by Patient Measurement Method Physical Exam General Appearance Alert, Oriented X3, Cooperative, Moderate Distress Skin No Rashes, No Breakdown, No Significant Lesion Skin Temp/Moisture Exam: Warm/Dry Sepsis Skin Exam (color): Normal for Ethnicity HEENT Atraumatic, PERRLA, EOMI, OXYGEN VIA NASAL CANNULA Neck Supple, No JVD Lymphatic Cervical nl Cardiovascular Regular Rate, Normal S1, Normal S2 Lungs BILATERAL BASAL CRACKLES Abdomen Normal Bowel Sounds, Soft, No Tenderness Neurological Normal Tone, Cranial Nerves 3-12 NL Extremities No Clubbing, No Cyanosis, No Edema, Normal Pulses Last 24 Hrs of Labs/Tang: Laboratory Tests 02/14/17 1134: Anion Gap 16, Estimated GFR > 60, BUN/Creatinine Ratio 21.8, Glucose 207 H, Calcium 8.4, Magnesium 2.2, Total Bilirubin 1.4 H, AST 37, ALT 85 H, Alkaline Phosphatase 140 H, Troponin I < 0.01, Gxy-T-Ftjftufaeol Pept 2430 H, Total Protein 5.9 L, Albumin 3.1 L, Globulin 2.8, Albumin/Globulin Ratio 1.1, PT 32.4 H, INR 3.12 H, CBC w Diff NO MAN DIFF REQ, RBC 5.66, MCV 76.3 L, MCH 24.5 L, RDW 15.9 H, MPV 7.4, Gran % 87.0 H, Lymphocytes % 4.4 L, Monocytes % 6.1, Eosinophils % 2.4, Basophils % 0.1, Absolute Granulocytes 9.6 H, Absolute Lymphocytes 0.5 L, Absolute Monocytes 0.7 H, Absolute Eosinophils 0.3, Absolute Basophils 0, PUBS MCHC 32.1 L 02/14/17 1040: pH 7.48 H, pCO2 27 L, pO2 50 *L, HCO3 20 L, ABG O2 Sat (Measured) 85.0 L, O2 Concentration % 55%, O2 Delivery Method VENTI MASK, Phlebotomy Draw Site RIGHT BRACHIAL Microbiology 02/14 1330 BLOOD: Blood Culture - RECD 02/14 1325 BLOOD: Blood Culture - RECD Diagnostic Data CXR Results FINDINGS: There is a moderate left pneumothorax which was visualized as far as 06/08/2016. There is complete new opacification of the left lung and right midlung suggestive of infiltrate. Heart size and pulmonary vascularity is normal. New dual pacer electrodes are in right atrium and right ventricle.. There is mediastinal nannette and median sternotomy sutures from previous CABG. No gross bony abnormality seen. IMPRESSION: Moderate left pneumothorax shows mild increased in size since 06/16/2016. There are bilateral airspace opacities consistent with infiltrates new since the previous study. New pacer electrodes in right atrium and right ventricle. No change in CABG findings from previous study. Assessment/Plan Assessment: Patient is 81-year-old male with past medical history of mesothelioma, significant cardiomyopathy with low EF ,pacemaker placement(placed 8 days ago at the [facility]), hypertension, CAD status post CABG, gout, atrial flutter on Eliquis, left-sided pneumothorax sustained after a fall in June 2015(managed conservatively at the hospital), heart failure with preserved ejection fraction who presented to the ED with a chief complaint of shortness of breath and nonproductive cough for the past 3 days. In the ED patient was found to have a temperature of 96.8, pulse 117, respiration 28, blood pressure 104/64 and saturating 63% on room air. He was put on 100% nonrebreather with improvement of sats to 96% Problem list * Acute hypoxic respiratory failure likely multifactorial due to malignant mesothelioma, worsening left-sided pneumothorax, acute on chronic HFwPEF, ? Pneumonia/bronchitis, amiodarone-induced lung toxicity * Sepsis(tachycardia, tachypnea, evidence of infiltrate on CXR). However patient does not appear infected given lack of productive fever/ sputum * History of atrial flutter on Eliquis * Recent pacemaker placement at [facility](8 days ago) * Malignant mesothelioma * Cardiomyopathy(EF 20-25% with global hypokinesia) * Heart failure with reduced ejection fraction * Worsening Left-sided pneumothorax * History of coronary artery disease status post CABG * Severe lung emphysema * Chronic kidney disease * Transaminitis * History of gout PLAN: * Patient admitted to the ICU for close monitoring * Vitals per protocol * We'll continue high flow oxygen to keep saturations above 92% * TRC nebs [id number] * IV ceftriaxone and doxycycline. 1 dose of IV vancomycin was given since he had recent instrumentation and hospitalization. * We will hold off on fluids given patient appears to be fluid overloaded time. * Pancultures ordered * Solu-Medrol 80 mg IV 1 dose. Will not continue steroids for now as patient has no significant wheezing. * No Lasix at this point given labile blood pressure. We will consider one dose of IV Lasix if blood pressure tolerates. * Holding her blood pressure medications. * We will hold statin considering transaminitis. We will trend LFTs. Alkaline phosphatase elevation likely secondary to malignancy. * We will continue PPI and allopurinol * Patient's chest x-ray clearly showed evidence of fibrosis questionable amiodarone toxicity . We will hold amiodarone at this point. * We will continue Eliquis for paroxysmal A. fib/flutter. Patient at this point in sinus rhythm. * If patient does not have adequate urine output, plan is to start him on a dobutamine drip at 2.5 mics and then titrate up to 5 as pressure tolerates and start him on Lasix * We will repeat echocardiogram to assess the LV function. * Strict I's and O's, Maynard catheter placed. * CT chest/abdomen/pelvis to evaluate advancing malignant melanoma. * Conservative management of pneumothorax. No aggressive measures. * We will try to obtain records from [facility]. * Extensive discussion with family regarding goals of care by Dr. Mclaughlin. Patient does not want any kind of aggressive measures including central line, pressors, BiPAP. Family is aware of the grave prognosis. Plan is to change patient to comfort care if clinical condition worsens. * DVT prophylaxis Eliquis * DNR/DNI * Mild pain pathway * Heart healthy diet As Ranked By This Provider Problem List: 1. Pneumothorax on left 2. Gout 3. HLD (hyperlipidemia) 4. CAD (coronary artery disease) of artery bypass graft 5. Ischemic cardiomyopathy 6. Congestive heart failure 7. Transaminitis Core Measures/Miscellaneous Acute Coronary Syndrome ACS Diagnosis: No Cerebrovascular Accident CVA/TIA Diagnosis: No Congestive Heart Failure CHF Diagnosis: Yes Last Known EF %: 20 DENZEL/ARB for EF <40%: No (CKD) No DENZEL/ARB d/t: Renal Failure/Azotemia Venous Thromboembolism VTE Risk Factors: Age > 40, Malignancy Myelo Disorder No Mech VTE prophylaxis d/t: No contraindications No VTE Pharm Prophylaxis d/t: No contraindications VTE Diagnosis: No VTE Type: NONE VTE Confirmed by (Test): NONE Severe Sepsis Severe Sepsis Present: No Septic Shock Septic Shock Present: No Miscellaneous Documentation Attending Case Discussed With: ERI MCLAUGHLIN MD Primary Care Physician: NEEMA CRAIN MD Patient sees these Specialists NONE Level of Patient Care: Critical Care (CRI)
--- NOTE | 2017-02-14 21:17 | NUR ---
PT ADMITTED TO ICU, ROOM # 104. ORAL REPORT GIVEN TO KELLE WARE PT MEDICATED WITH 80 MG SOLUMEDROL IV AND 1 G VANCOMYCIN IVSS. PT WILL GO TO CT SCAN, THEN TO ICU. PT'S CLINICAL STATUS UNCHANGED.
--- NOTE | 2017-02-14 21:45 | NUR ---
PT TAKEN TO CT SCAN AND THEN TO ICU
--- NOTE | 2017-02-14 22:45 | CT SCAN REPORT ---
EXAMINATION: CT CHEST WITHOUT CONTRAST CT ABDOMEN AND PELVIS WITHOUT CONTRAST CLINICAL INFORMATION: Shortness of breath. Evaluate for pulmonary infiltrates versus pulmonary edema. Abdominal wall infiltrates. History of mesothelioma. COMPARISON: Multiple priors, most recent CT chest dated 02/10/2016 and chest radiograph done earlier the same day. TECHNIQUE: Contiguous axial thin section helical images of the chest, abdomen and pelvis were performed without contrast. The data set was reformatted in the coronal and sagittal planes and reviewed on an independent workstation. DLP: 371.06 mGy-cm FINDINGS: LUNGS/PLEURA: A left apical pneumothorax is redemonstrated, increased in prominence when compared to the prior examination and now extending along the entire anterior aspect of the lung. Significant interval increase in bilateral bullous emphysema, most prominent within the right lower lobe. There are new diffuse bilateral ground-glass opacities. This could represent fluid overload. An infectious process cannot be entirely excluded. There are bilateral fibrotic changes, increased since the prior examination. There is a small right-sided pleural effusion. Bilateral pleural thickening is redemonstrated. MEDIASTINUM: Post CABG changes including sternal wires are redemonstrated. There is a left chest wall pacemaker with its leads terminating within the right heart. There is persistent mild cardiomegaly. There is no pericardial effusion. Atherosclerotic calcifications are seen within the thoracic aorta. AXILLA: No lymphadenopathy. LIVER, GALLBLADDER, BILIARY TREE: There is no focal hepatic lesion. The liver is normal in size and attenuation. The gallbladder is unremarkable. There is no cholelithiasis, gallbladder wall thickening, or pericholecystic fat stranding. PANCREAS: Mildly atrophic. SPLEEN: Normal ADRENAL GLANDS: Normal KIDNEYS, URETERS AND BLADDER: The kidneys are symmetric and of normal shape and size. There is no hydronephrosis or nephrolithiasis. There is no hydroureter. The urinary bladder is partially distended with a Maynard catheter in place. Air is seen within the urinary bladder, likely related to the Maynard catheter. BOWEL LOOPS: There is no small or large bowel obstruction. There are diffuse sigmoid colon diverticula without adjacent inflammatory change to suggest acute diverticulitis. The appendix is normal. There is no intra-abdominal free air or free fluid. LYMPHOVASCULAR STRUCTURES: Diffuse atherosclerotic calcifications are seen throughout the abdominal aorta and its branch vessels. There is focal abdominal aortic dilatation just proximal to the bifurcation with the aortic lumen measuring up to 2.9 cm. PELVIC VISCERA: The prostate and seminal vesicles are unremarkable. BONES: Bridging osteophytes are noted within the thoracic spine. There are severe degenerative changes within the lower lumbar spine, most prominent at L2-L3 and L3-L4. ADDITIONAL FINDINGS: None IMPRESSION: 1. Left apical pneumothorax, increased in size since the prior examination dated 06/16/2016. Significant interval increase in bilateral bullous emphysema, most prominent within the right lung base. 2. New diffuse bilateral ground-glass opacities, which could represent fluid overload. An infectious process cannot be excluded. Bilateral fibrotic changes, increased since the prior examination. 3. Small right-sided pleural effusion. Redemonstration of bilateral pleural thickening. 4. Prominent sigmoid diverticulosis without adjacent inflammatory change to suggest acute diverticulitis. 5. Diffuse atherosclerotic calcifications throughout the abdominal aorta and its branch vessels. Focal abdominal aortic aneurysm just proximal to the bifurcation which measures up to 2.9 cm. These findings were discussed with Dr. Gonzalez via telephone at 10:41 PM on 02/14/2017.
--- NOTE | 2017-02-14 23:55 | NUR ---
2210-RECIEVED PT FROM ER. A/OX3 CHITIMACHA. MOVES ALL EXT. NSR 80'S SBP 130. NO EDEMA. BLANCHABLE REDNESS TO COCCYX. HIGH FLOW NC 40L/55% O2 AT 88-90%, INCREASED TO 40L/60%, O2 AT NOW 92%. DIMINISHED ALL LUNG MORALES. DENIES PAIN. +BS. BOX LUNCH PROVIDED. WILL CONT TO MONITOR.
[2017-02-15] VITALS: BP 90/54
--- NOTE | 2017-02-15 01:11 | NUR ---
URINE OUTPUT LAST 2 HOURS=10ML. MD BANDA MADE AWARE. AWAITING ORDERS.
[2017-02-15 05:08] LABS: ABSOLUTE BASOPHIL COUNT 0 /CUMM (0.0-0.2); ABSOLUTE LYMPH COUNT 0.3 /CUMM (1.2-3.4); BASOPHIL % 0 % (0.0-2.0); MEAN CORPUSCULAR HGB 24.8 PG (27.0-31.0)
[2017-02-15 05:14] LABS: ABSOLUTE EOSINOPHIL COUNT 0 /CUMM (0.0-0.7); ABSOLUTE GRANULOCYTE CT 8.3 /CUMM (1.4-6.5); ABSOLUTE MONOCYTE COUNT 0.2 /CUMM (0.10-0.60); EOSINOPHIL % 0 % (0-5); MEAN CORPUSCULAR HGB CONC 32.6 G/DL (33.0-37.0); MEAN PLATELET VOLUME 7.6 FL (7.4-10.4); PLATELET COUNT 283 /CUMM (130-400); RBC DISTRIBUTION WIDTH 16.1 % (11.5-14.5); RED BLOOD CELL CT 4.78 /CUMM (4.70-6.10); WHITE BLOOD CELL COUNT 8.8 /CUMM (4.8-10.8)
[2017-02-15 05:23] LABS: HEMATOCRIT 36.3 % (42-52)
--- NOTE | 2017-02-15 06:43 | PN- Resident CRCU ---
Subjective HPI/CRCU Issues: Patient seen and examined at bedside this AM. He was sitting in bed requiring 60 % FiO2 via HFNC. He denies worsening shortness of breath, chest pain, palpitations or pain. He was started on IV dobutamine last night due to low urine output to about 5 cc/h. His urine output responded well and nursing reported increase to about 30 cc/h after initiation of dobutamine. His BP remains borderline. 24 Hour Events: campus monitor: No overnight events. Vital signs last 24 hours: T 97.8-99.4, HR 70-81, RR 24-30, BP 87-137/48-64, O2 saturation 91-94% 55-60% HFNC. Total intake last 24 hours: 342 cc Total output last 24 hours: 375 cc Objective Vital Signs & I&O Last 8 Hrs of Vitals and I&O: Intake & Output 02/15 1600 Intake Total Output Total Balance Patient 129 lb Weight T 97.8-99.4, HR 70-81, RR 24-30, BP 87-137/48-64, O2 saturation 91-94% 55-60% HFNC. Exam General Appearance: well developed/nourished, alert, comfortable, mild distress Head: atraumatic, normal appearance Ears, Nose, Throat: normal pharynx, hearing grossly normal Neck: normal inspection, supple Respiratory: chest non-tender, Mild respiratory distress, decreased breath sounds bilateral bases Cardiovascular: regular rate/rhythm Gastrointestinal: normal bowel sounds, soft, non-tender Extremities: normal inspection, no edema Cranial Nerves: normal hearing, normal speech Skin: intact, warm/dry Nutrition Nutrition: P.O. diet Current Medications: Current Medications Sig/Evonne Start time Last Medication Dose Route Stop Time Status Admin Acetaminophen 325 MG Q6P PRN 02/14 2015 AC PO Albuterol Sulfate 3 ML TID 02/15 1600 AC INH Albuterol Sulfate 3 ML ONCE ONE 02/14 1330 DC INH 02/14 1331 Albuterol Sulfate 3 ML ONCE ONE 02/14 1200 DC 02/14 INH 02/14 1201 1156 Allopurinol 200 MG DAILY 02/15 1000 AC 02/15 PO 0823 Apixaban 5 MG BID 02/14 2200 AC 02/15 PO 0823 Aspirin Buffered 81 MG DAILY 02/15 1000 AC 02/15 PO 0823 Atorvastatin Calcium 40 MG QPM 05/29 2200 CAN PO Ceftriaxone Sodium 1,000 MG 1400 02/15 1400 AC IV Ceftriaxone Sodium 1,000 MG DAILY 02/15 1000 DC IV Ceftriaxone Sodium 0 .STK-MED ONE 02/14 1425 DC .ROUTE Ceftriaxone Sodium 1,000 MG ONCE ONE 02/14 1315 DC 02/14 IV 02/14 1316 1432 Cyanocobalamin 2,000 MCG DAILY 02/15 1000 AC 02/15 PO 0824 Dobutamine HCl 250 MG Q14H 02/15 0945 AC Dextrose/Water 250 ML IV Dobutamine HCl 250 MG Q24H 02/15 0145 DC 02/15 Dextrose/Water 250 ML IV 0215 Dobutamine HCl 250 MG ONCE ONE 02/15 0115 CAN Dextrose/Water 250 ML IV 02/15 0116 Doxycycline Hyclate 100 MG 1400 02/15 1400 AC Sodium Chloride 100 ML IV Doxycycline Hyclate 100 MG DAILY 02/15 1000 DC Sodium Chloride 100 ML IV Doxycycline Hyclate 100 MG ONCE ONE 02/14 1315 DC 02/14 Sodium Chloride 100 ML IV 02/14 1420 1448 Heparin Sodium 5,000 UNIT Q8 02/14 2200 CAN (Porcine) SC Insulin Aspart 0 TIDAC 02/15 0800 AC SC Ipratropium [place] 2.5 ML TID 02/15 1600 AC INH Ipratropium [place] 2.5 ML ONCE ONE 02/14 1200 DC 02/14 INH 02/14 1201 1155 Methylprednisolone 60 MG ONCE ONE 02/15 0915 DC IV 02/15 0916 Methylprednisolone 0 .STK-MED ONE 02/14 205 DC .ROUTE Methylprednisolone 80 MG ONCE ONE 02/14 2030 DC 02/14 IV 02/14 2031 213 Omeprazole 20 MG DAILY 02/15 1000 AC 02/15 PO 0823 Oxycodone HCl 5 MG Q6P PRN 02/14 2015 AC PO Oxycodone/ 2 TAB Q6P PRN 02/14 2015 AC Acetaminophen PO Prednisone 50 MG DAILY 02/16 1000 AC PO Vancomycin HCl 1,000 MG ONCE ONE 02/14 2015 DC 02/14 Sodium Chloride 250 ML IV 02/14 CXR Findings: IMPRESSION: Moderate left pneumothorax shows mild increased in size since 06/16/2016. There are bilateral airspace opacities consistent with infiltrates new since the previous study. New pacer electrodes in right atrium and right ventricle. No change in CABG findings from previous study. CT Scan Findings: Chest CT: IMPRESSION: 1. Left apical pneumothorax, increased in size since the prior examination dated 06/16/2016. Significant interval increase in bilateral bullous emphysema, most prominent within the right lung base. 2. New diffuse bilateral ground-glass opacities, which could represent fluid overload. An infectious process cannot be excluded. Bilateral fibrotic changes, increased since the prior examination. 3. Small right-sided pleural effusion. Redemonstration of bilateral pleural thickening. 4. Prominent sigmoid diverticulosis without adjacent inflammatory change to suggest acute diverticulitis. 5. Diffuse atherosclerotic calcifications throughout the abdominal aorta and its branch vessels. Focal abdominal aortic aneurysm just proximal to the bifurcation which measures up to 2.9 cm. Impression/Plan Impression/Problem List Impression: Mr. Merrill is an 81 year old male with PMH malignant mesothelioma , chronic left pneumothorax, severe emphysema, severe cardiomyopathy with low ejection fraction, recent PPM implantation 8 days ago at the [facility], paroxysmal atrial fibrillation on amiodarone and anticoagulation with eliquis, CAD s/p CABG, mild mitral insufficiency, mild-moderate tricuspid insufficiency, gout and HTN who presented to [facility] on 02/14/17 with chief complaint of shortness of breath, non-productive cough and decreased exercise tolerance for three days. In the ED: Vital signs showed T 96.8, HR 117, RR 28, BP 104/64 and O2 sat 63% on room air. He was put on 100% nonrebreather with improvement of saturations to 96% Labs were significant for WBC 11 with no bands, H&H 13.9/43.2, Na 133, K 4.6, BUN/cre 24/1.1, Glu 207, TBili 1.4, AST 37, ALT 85, alk phos 140, trop 0.01, proBNP 2430, INR 3.12. CXR was performed and showed moderate left pneumothorax increased in size from 06/16/16. Bilateral airspace opacities suggestive of new infiltrates. New pacer electrodes in RA and RV. Patient is admitted to the ICU and the following is the management: 1. Acute on chronic hypoxic respiratory failure * Likely 2/2 combination of bilateral pleural effusions, bilateral airspace disease, malignant mesothelioma, possible fluid overload and possible amiodarone induced lung toxicity * Continue O2 supplementation with HFNC, no further escalation to CPAP/BiPAP/ intubation if respiratory status deteriorates as patient is DNR/DNI * Continue Ceftriaxone 1 g IV daily and doxycycline 100 mg daily * Follow up pancultures and tailor antibiotics accordingly * Continue albuterol and atrovent/TRCs * Continue IV solumedrol 60 mg once today, prednisone 50 mg PO daily starting tomorrow * While on steroids, continue NSS (coverage to start with FSG >250) * HOLD amiodarone due to possible drug-induced lung disease * Continue conservative tx of PTX 2. Hypotension * Likely cardiac related in the setting of cardiomyopathy with reduced EF * Continue dobutamine drip to maintain an adequate MAP * Once BP adequate, administer lasix to improve fluid overload * Follow up echocardiogram * Continue macias for strict Is/Os * Hold lisinopril while hypotensive 3. History of atrial fibrillation * Continue eliquis 5 mg PO BID * Continuous telemetry monitoring for now * HOLD amiodarone for now (of note, TFTs abnormal possible due to combo of critical illness and amiodarone) 4. Cardiomyopathy with reduced EF * Strict Is/Os/Daily weights * Cardio consult obtained, follow up recommendations * Continuous telemetry monitoring 5. CAD s/p CABG * Continue ASA 81 mg PO daily * Continue to hold statin in setting of slight transaminitis 6. CKD * Monitor renal function * Avoid nephrotoxins * Urine output improved with dobutamine 7. History of gout * Continue allopurinol 200 mg PO daily DNR/DNI Heart Healthy Diet DVTP: Eliquis Mild to severe pain pathway Problem List: 1. Pneumothorax on left 2. Pneumonia 3. Congestive heart failure 4. Atrial flutter 5. CAD (coronary artery disease) of artery bypass graft 6. DVT prophylaxis 7. Ischemic cardiomyopathy Pain Ratin Tomorrow's Labs & Rationales: CBC (leukocytosis) ICU bundle (hyponatremia, renal dysfunction) Plan DVT/Prophylaxis: pharmacological (Eliquis)
[2017-02-15 08:00] VITALS: BP 82/46
--- NOTE | 2017-02-15 09:03 | PN- CRCU ---
Subjective HPI/Critical Care Issues: Doing a little better Afebrile on steroids Blood pressure relatively stable On high flow oxygen at 60% O2 sat of 94% Urine output which was significantly low upon admission now slowly is increasing patient is on dobutamine Vital signs reviewed SIGNIFICANT DATA CT scan of the chest abdomen and pelvis reviewed which showed the left apical pneumothorax which is more prominent with severe bullous emphysema with new diffuse bilateral groundglass opacities which appears to be fluid overload versus other changes there is also small right-sided pleural effusion with significant bilateral pleural thickening status post CABG. Other data reviewed Sodium 133 creatinine up to 1.2 white count 8.8 hemoglobin 11.9 ABG reviewed cultures so far unremarkable Objective Current Medications: Current Medications Sig/Evonne Start time Last Medication Dose Route Stop Time Status Admin Acetaminophen 325 MG Q6P PRN 02/14 2015 AC PO Albuterol Sulfate 3 ML ONCE ONE 02/14 1330 DC INH 02/14 1331 Albuterol Sulfate 3 ML ONCE ONE 02/14 1200 DC 02/14 INH 02/14 1201 1156 Allopurinol 200 MG DAILY 02/15 1000 AC 02/15 PO 0823 Apixaban 5 MG BID 02/14 2200 AC 02/15 PO 0823 Aspirin Buffered 81 MG DAILY 02/15 1000 AC 02/15 PO 0823 Atorvastatin Calcium 40 MG QPM 02/14 2200 CAN PO Ceftriaxone Sodium 1,000 MG DAILY 02/15 1000 AC IV Ceftriaxone Sodium 0 .STK-MED ONE 02/14 1425 DC .ROUTE Ceftriaxone Sodium 1,000 MG ONCE ONE 02/14 1315 DC 02/14 IV 02/14 1316 1432 Cyanocobalamin 2,000 MCG DAILY 02/15 1000 AC 02/15 PO 0824 Dobutamine HCl 250 MG Q24H 02/15 0145 AC 02/15 Dextrose/Water 250 ML IV 0215 Dobutamine HCl 250 MG ONCE ONE 02/15 0115 CAN Dextrose/Water 250 ML IV 02/15 0116 Doxycycline Hyclate 100 MG DAILY 02/15 1000 AC Sodium Chloride 100 ML IV Doxycycline Hyclate 100 MG ONCE ONE 02/14 1315 DC 02/14 Sodium Chloride 100 ML IV 02/14 1420 1448 Heparin Sodium 5,000 UNIT Q8 02/14 2200 CAN (Porcine) SC Insulin Aspart 0 TIDAC 02/15 0800 AC SC Ipratropium [place] 2.5 ML ONCE ONE 02/14 1200 DC 02/14 INH 02/14 1201 1155 Methylprednisolone 0 .STK-MED ONE 02/14 2050 DC .ROUTE Methylprednisolone 80 MG ONCE ONE 02/14 2030 DC 02/14 IV 02/14 Omeprazole 20 MG DAILY 02/15 1000 AC 02/15 PO 0823 Oxycodone HCl 5 MG Q6P PRN 02/14 2015 AC PO Oxycodone/ 2 TAB Q6P PRN 02/14 2015 AC Acetaminophen PO Vancomycin HCl 1,000 MG ONCE ONE 02/14 2015 DC 02/14 Sodium Chloride 250 ML IV 02/14 Vital Signs & I&O Last 24 Hrs of Vitals and I&O: Vital Signs Date Time Temp Pulse Resp B/P B/P Pulse O2 O2 Flow FiO2 Mean Ox Delivery Rate 02/15 0400 93 Nasal 60% Cannula 02/15 0215 78 92/48 02/15 0000 99.1 78 30 90/54 94 Nasal 60% Cannula 02/15 0000 94 Nasal 60% Cannula 02/147 91 Nasal 55% Cannula 02/148 81 22 93/51 92 Nasal 55% Cannula 02/149 97.4 82 22 101/57 92 Nasal 55% Cannula 02/14 1922 83 20 97/58 92 Nasal 55% Cannula 02/14 1818 81 22 98/52 91 Nasal 55% Cannula 02/14 1623 97.8 81 20 95/53 92 Venti Mask 55% 02/14 1327 98.9 81 22 93/54 88 Venti Mask 55% 02/14 1253 96 Venti Mask 60% 02/14 1250 98.3 87 22 93/50 98 Venti Mask 60% 02/14 1156 100 Non 100% ReBreather 02/14 1119 96.8 22 96 Non 100% ReBreather 02/14 1118 107 28 104/64 63 Room Air Intake & Output 02/15 1600 02/15 0800 02/15 0000 Intake Total 92 250 Output Total 175 200 Balance -83 50 Intake, IV 32 250 Intake, Oral 60 0 Intake, Tube Feeding Intake, Tube Irrigant Number 0 0 Bowel Movements Output, Chest Tube Drainage Output, Urine 175 200 Patient 129 lb Weight Weight Bed scale Measurement Method Impression/Plan Impression/Plan Impression/Plan: Physical Exam General Appearance: well developed/nourished, alert, awake, anxious, severe distress, thin Head: atraumatic, normal appearance Eyes: Bilateral: normal appearance, PERRL, EOMI. Ears, Nose, Throat: normal pharynx, normal ENT inspection Neck: normal inspection, supple, full range of motion, no midline tenderness Respiratory: chest non-tender, decreased breath sounds, accessory muscle use, crackles, wheezing, respiratory distress Cardiovascular: regular rate/rhythm, normal peripheral pulses, norml femoral pulses equa Peripheral Pulses: 4+ carotid (R), 4+ carotid (L) Gastrointestinal: normal bowel sounds, soft, non-tender, no organomegaly Extremities: normal inspection, normal capillary refill, normal range of motion, no edema Neurologic/Psych: no motor/sensory deficits, awake, alert, oriented x 3, talent development manager II- XII nml as tested Skin: intact, normal color, warm/dry Lymphatic: no anterior cervical deandre IMPRESSION This is an unfortunate 81-year-old gentleman with history of severe cardiomyopathy, paroxysmal atrial fibrillation on amiodarone and anticoagulation , previous history of coronary artery disease with CABG, cardiomyopathy with low ejection fraction, moderate mitral insufficiency with mild to moderate tricuspid insufficiency, Recently diagnosed agg malignant mesothelioma (bx done from his abd wall rectus sheath), chronic left pleural effusion now has * Severe hypoxemic respiratory failure which appears to be combination of factors which include aggressive malignant mesothelioma with bilateral pleural effusion, thick pleural rind in the right side, bilateral airspace disease suggestive of either fluid overload or drug-induced lung disease versus advancing mesothelioma. Patient may be in mild congestive heart failure aswell, HIs blood pressure is low with low ejection fraction. * Worsening performance status in the recent past with poor appetite related to malignant mesothelioma and severe cardiomyopathy ( recent bx at [facility] c/w agg malignant mesothelioma * Chronic left pneumothorax which is slowly increasing in size is also contributing to shortness of breath * Severe lung disease with emphysema with significant pleural blebs, significant bronchiectasis within the anterior medial aspect of the right upper lobe with rounded atelectasis and chronic pleural parenchymal scarring with previous mucous plugging and chronic lung disease * Significant valvular heart disease with mitral regurgitation and tricuspid regurgitation * History of Severe cardiomyopathy with low ejection fraction with valvular heart disease with low flow state with low blood pressure * Paroxysmal atrial fibrillation now appears to be in sinus rhythm with left bundle branch block * Chronic kidney disease * 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 * Cont high flow oxygen * large bore IVs * Broad-spectrum antibiotics with ceftriaxone and Doxy. To continue and will deescalate soon as soon as possible, obtain urinary leigenella and pneumo antigen * Solumedrol 60 mg daily and then change to po prednisone 50 mg daily from am * Albuterol and ipratropium nebulizer therapy around the clock * Discontinue amiodarone * Keep his O2 sat 92-94% * Try lasix 40 mg today and keep dobutamine at 5 mics * Continue allopurinol and proton pump inhibitor * Continue his eloquis * Maynard catheter to continue. * ECHO * Follow sugar, will only cover him with sliding scale insulin if his blood sugars more than 250 * No CPAP or BiPAP * Vitamin B12 2000 units by mouth daily * No therapy is necessary for his pneumothorax. 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 * Overall prognosis poor Multiple treatment options were discussed with the patient initially, including transferred to the [facility] versus transferred to a tertiary care facility. However at this time the patient wishes to continue his rx at [facility] and he wants maximum conservative therapy. He does not wish any life- support. He does not wish noninvasive ventilation, or dialysis or mechanical ventilation or Vasopressors. He is agreeable to vasoactive agents like dobutamine. He does have rapidly advancing malignancy, cardiomyopathy and severe lung disease. I did review some of his records from the [facility] and his prognosis appears to be extremely grim and we will honor the patient's wishes. We will make him DNR/DNI with conservative care only If he were to get worse then patient wishes to be made Com[facility]. Family meeting held I did also discuss with the physicians at [facility] Patient is critically ill total time spent 40 minutes
[2017-02-15 12:00] VITALS: BP 98/46
--- NOTE | 2017-02-15 13:11 | PN- Cardiology ---
Subjective Subjective: The patient reports that he is feeling somewhat better today. He remains on high flow oxygen with improved oxygen saturation. He is on IV dobutamine. No chest pain. No palpitations. No diaphoresis. Objective Vital Signs and I&Os Vital Signs Date Time Temp Pulse Resp B/P B/P Pulse O2 O2 Flow FiO2 Mean Ox Delivery Rate 02/15 1200 98.4 80 30 98/46 94 Nasal 70% Cannula 02/15 0800 97.4 72 28 82/46 88 Nasal 60% Cannula 02/15 0400 93 Nasal 60% Cannula 02/15 0215 78 92/48 02/15 0000 99.1 78 30 90/54 94 Nasal 60% Cannula 02/15 0000 94 Nasal 60% Cannula 02/14 2217 91 Nasal 55% Cannula 02/14 2138 81 22 93/51 92 Nasal 55% Cannula 02/14 2039 97.4 82 22 101/57 92 Nasal 55% Cannula 02/14 1922 83 20 97/58 92 Nasal 55% Cannula 02/14 1818 81 22 98/52 91 Nasal 55% Cannula 02/14 1623 97.8 81 20 95/53 92 Venti Mask 55% 02/14 1327 98.9 81 22 93/54 88 Venti Mask 55% Intake & Output 02/15 1600 02/15 0802/15 0000 02/14 1600 02/14 0000 Intake Total 92 250 100 Output Total 175 200 Balance -83 50 100 Intake, IV 32 250 100 Intake, Oral 60 0 Intake, Tube Feeding Intake, Tube Irrigant Number 0 0 Bowel Movements Output, Chest Tube Drainage Output, Urine 175 200 Patient 129 lb 129 lb 125 lb Weight Weight Bed scale Reported by Patient Measurement Method Physical Exam: Gen: NAD HEENT: normal Lungs: Decreased breath sounds, increased respiratory effort Heart: RRR, S1, S2, 2/6 systolic murmur Abdomen: Soft, nontender, no masses Extremities: No clubbing, cyanosis, or edema. Neuro: Alert and oriented x 3, cranial nerves intact Current Medications: Current Medications Sig/Evonne Start time Last Medication Dose Route Stop Time Status Admin Acetaminophen 325 MG Q6P PRN 02/14 2015 AC PO Albuterol Sulfate 3 ML TID 02/15 1600 AC INH Albuterol Sulfate 3 ML ONCE ONE 02/14 1330 DC INH 02/14 1331 Allopurinol 200 MG DAILY 02/15 1000 AC 02/15 PO 0823 Apixaban 5 MG BID 02/14 2200 AC 02/15 PO 0823 Aspirin Buffered 81 MG DAILY 02/15 1000 AC 02/15 PO 0823 Atorvastatin Calcium 40 MG QPM 02/14 2200 CAN PO Ceftriaxone Sodium 1,000 MG 1400 02/15 1400 AC IV Ceftriaxone Sodium 1,000 MG DAILY 02/15 1000 DC IV Ceftriaxone Sodium 0 .STK-MED ONE 02/14 1425 DC .ROUTE Ceftriaxone Sodium 1,000 MG ONCE ONE 02/14 1315 DC 02/14 IV 02/14 1316 1432 Cyanocobalamin 2,000 MCG DAILY 02/15 1000 AC 02/15 PO 0824 Dobutamine HCl 250 MG Q14H 02/15 0945 AC 02/15 Dextrose/Water 250 ML IV 0945 Dobutamine HCl 250 MG Q24H 02/15 0145 DC 02/15 Dextrose/Water 250 ML IV 0215 Dobutamine HCl 250 MG ONCE ONE 02/15 0115 CAN Dextrose/Water 250 ML IV 02/15 0116 Doxycycline Hyclate 100 MG 1400 02/15 1400 AC Sodium Chloride 100 ML IV Doxycycline Hyclate 100 MG DAILY 02/15 1000 DC Sodium Chloride 100 ML IV Doxycycline Hyclate 100 MG ONCE ONE 02/14 1315 DC 02/14 Sodium Chloride 100 ML IV 02/14 1420 1448 Heparin Sodium 5,000 UNIT Q8 02/14 2200 CAN (Porcine) SC Insulin Aspart 0 TIDAC 02/15 0800 AC SC Ipratropium [place] 2.5 ML TID 02/15 1600 AC INH Methylprednisolone 60 MG ONCE ONE 02/15 0915 DC 02/15 IV 02/15 0916 1116 Methylprednisolone 0 .STK-MED ONE 02/14 2050 DC .ROUTE Methylprednisolone 80 MG ONCE ONE 02/14 2030 DC 02/14 IV 02/14 Omeprazole 20 MG DAILY 02/15 1000 AC 02/15 PO 0823 Oxycodone HCl 5 MG Q6P PRN 02/14 2015 AC PO Oxycodone/ 2 TAB Q6P PRN 02/14 2015 AC Acetaminophen PO Prednisone 50 MG DAILY 02/16 1000 AC PO Vancomycin HCl 1,000 MG ONCE ONE 02/14 2015 DC 02/14 Sodium Chloride 250 ML IV 02/14 2114 213 Results Last 48 Hrs of Labs/Mics: Laboratory Tests 02/15/17 0440: Anion Gap 12, Estimated GFR 58 L, Glucose 179 H, Calcium 8.0 L, Phosphorus 4.5, Magnesium 2.2, Total Bilirubin 0.7, AST 28, ALT 79 H, Albumin 2.5 L, CBC w Diff MAN DIFF ORDERED, RBC 4.78, MCV 76.0 L, MCH 24.8 L, RDW 16.1 H, MPV 7.6, Gran % 95.0 H, Lymphocytes % 3.2 L, Monocytes % 1.8, Eosinophils % 0, Basophils % 0 L, Absolute Granulocytes 8.3 H, Absolute Lymphocytes 0.3 L, Absolute Monocytes 0.2, Absolute Eosinophils 0, Absolute Basophils 0, Platelet Estimate ADEQUATE, Polychromasia 1+, Poikilocytosis 1+, Ovalocytes 1+, PUBS MCHC 32.6 L 02/14/17 2240: Lactic Acid 1.8 02/14/172121: Urine Color YEL, Urine Clarity CLEAR, Urine pH 5.5, Ur Specific [place] 1.025, Urine Protein NEG, Urine Ketones NEG, Urine Nitrite NEG, Urine Bilirubin NEG, Urine Urobilinogen 1.0, Ur Leukocyte Esterase NEG, Ur Microscopic SEDIMENT EXAMINED, Urine RBC 5-10 H, Urine WBC RARE, Urine Bacteria MOD H, Hyaline Casts 5-10 H, Urine Hemoglobin LARGE H, Urine Glucose NEG 02/14/17 1134: Anion Gap 16, Estimated GFR > 60, BUN/Creatinine Ratio 21.8, Glucose 207 H, Calcium 8.4, Magnesium 2.2, Total Bilirubin 1.4 H, AST 37, ALT 85 H, Alkaline Phosphatase 140 H, Troponin I < 0.01, [id number] Pept 2430 H, Total Protein 5.9 L, Albumin 3.1 L, Globulin 2.8, Albumin/Globulin Ratio 1.1, TSH 4.340 H, Free T4 2.34 H, Total T3 0.55 L, PT 32.4 H, INR 3.12 H, CBC w Diff NO MAN DIFF REQ, RBC 5.66, MCV 76.3 L, MCH 24.5 L, RDW 15.9 H, MPV 7.4, Gran % 87.0 H, Lymphocytes % 4.4 L, Monocytes % 6.1, Eosinophils % 2.4, Basophils % 0.1, Absolute Granulocytes 9.6 H, Absolute Lymphocytes 0.5 L, Absolute Monocytes 0.7 H, Absolute Eosinophils 0.3, Absolute Basophils 0, PUBS MCHC 32.1 L 02/14/17 1040: pH 7.48 H, pCO2 27 L, pO2 50 *L, HCO3 20 L, ABG O2 Sat (Measured) 85.0 L, O2 Concentration % 55%, O2 Delivery Method VENTI MASK, Phlebotomy Draw Site RIGHT BRACHIAL Recent Imaging Studies: Chest x-ray: Moderate left pneumothorax shows mild increased in size since 06/16/2016. There are bilateral airspace opacities consistent with infiltrates new since the previous study. New pacer electrodes in right atrium and right ventricle. No change in CABG findings from previous study. Assessment/Plan Assessment/Plan 1. Hypoxemic respiratory failure 2. CAD, status post CABG 3. Cardiomyopathy, ischemic versus tachycardia mediated 4. Paroxysmal atrial flutter, currently in sinus rhythm 5. Recent permanent pacemaker placement 6. Chronic systolic heart failure, with possible acute exacerbation Plan: * Continue dobutamine drip * Echocardiogram * Continue Eliquis * Lasix 40 mg IV 1 today if blood pressure is adequate * Off amiodarone because of possible pulmonary side effects ): Continue telemetry? Yes
[2017-02-15 16:00] VITALS: BP 106/60
--- NOTE | 2017-02-15 17:19 | ECHOCARDIOGRAM REPORT ---
LISA ELDER Age: 81 : 1935 Gender: M Exam Date: 02/15/2017 13:42 Exam Location: [facility] Ht (in): 64 Wt (lb): 128 BSA: 1.62 BP: 98 / 46 Ordering Physician: OYN WILSON, Referring Physician: Eamon Gorman MD Technologist: Shirin Flores JAVIER Room Number: 104 Indications: CARDIOMYOPATHY Rhythm: Sinus Technical Quality: Fair, Technically difficult study FINDINGS Left Ventricle Left ventricular cavity size at the upper limits of normal. Moderately abnormal left ventricular ejection fraction estimated at 20-25%. Moderately reduced global left ventricular systolic function. Right Ventricle Right ventricle not well visualized, grossly normal. Catheter/pacemaker wire in the right ventricular cavity. Right Atrium Right atrium not well visualized, grossly normal. Catheter/pacemaker wire in the right atrial cavity. Left Atrium Mild to moderate left atrial dilatation. Mitral Valve Mitral valve thickened. Moderate mitral annular calcification. Mild mitral regurgitation. Aortic Valve Trileaflet aortic valve. Diffuse thickening of the aortic valve cusps with reduced excursion. Trace to mild aortic regurgitation. Tricuspid Valve Tricuspid valve not well visualized, grossly normal. Mild-to- moderate tricuspid regurgitation. Right ventricular systolic pressure estimated at 36 mmHg. Pulmonic Valve Pulmonic valve not well visualized, grossly normal. Trace to mild pulmonic regurgitation. Pericardium No pericardial effusion. Great Vessels Aortic root and proximal ascending aorta not well visualized, grossly normal. CONCLUSIONS 1. This was a technically difficult and limited examination due to the patient's body habitus and clinical status. 2. Aortic sclerosis is present with minimal to mild aortic insufficiency. There is no significant valvular stenosis. 3. Mitral leaflet thickening is present with mild to moderate anular calcification and mild mitral insufficiency with mild to moderate left atrial enlargement. 4. There is no significant pericardial fluid present. 5. The left ventricular chamber is upper normal in size. There is global hypokinesia present which appears worse in the anteroseptal, apical and inferobasal segments. The ejection fraction is approximately 25%. 6. The right heart structures are grossly normal. Mild to moderate tricuspid insufficiency is present with minimal to mild pulmonic insufficiency and an estimated RV systolic pressure of 36 mmHg. 7. Pacemaker wires are present in the right heart chambers. 8. If clinically indicated, a MUGA scan might be useful in this patient. Tj Hartman M.D. (Electronically Signed) Final Date: 15 Feb 2017 17:19 MEASUREMENTS (Male / Female) Normal Values 2D ECHO LV Diastolic Diameter PLAX 4.9 cm 4.2 - 5.9 / 3.9 - 5.3 cm LV Systolic Diameter PLAX 4.3 cm 2.1 - 4.0 cm LV Fractional Shortening PLAX 12.2 % 25 - 46 % LV Ejection Fraction 2D Teich 26.4 % IVS Diastolic Thickness 0.7 cm LVPW Diastolic Thickness 0.9 cm LV Relative Wall Thickness 0.3 LVOT Diameter 2.0 cm Aortic Root Diameter 2.8 cm LA Systolic Diameter LX 4.1 cm 3.0 - 4.0 / 2.7 - 3.8 cm LA Volume 36.0 cm 18 - 58 / 22 - 52 cm Ascending Aorta Diameter 3.1 cm DOPPLER AV Peak Velocity 175.0 cm/s AV Peak Gradient 12.3 mmHg AV Mean Velocity 115.0 cm/s AV Mean Gradient 6.0 mmHg AV Velocity Time Integral 30.3 cm LVOT Peak Velocity 124.0 cm/s LVOT Peak Gradient 6.2 mmHg LVOT Mean Velocity 82.1 cm/s LVOT Mean Gradient 3.0 mmHg LVOT Velocity Time Integral 23.0 cm LVOT Stroke Volume 72.3 cm AV Area Cont Eq vti 2.4 cm AV Area Cont Eq pk 2.2 cm MV Peak Velocity 72.1 cm/s MV Peak Gradient 2.1 mmHg MV Mean Velocity 39.7 cm/s MV Mean Gradient 1.0 mmHg Mitral E Point Velocity 45.5 cm/s Mitral A Point Velocity 51.0 cm/s Mitral E to A Ratio 0.9 MV PHT Velocity 55.5 cm/s MV Deceleration Hooker 297.0 cm/s MV Pressure Half Time 56.1 ms MV Area PHT 3.9 cm MV Deceleration Time 177.0 ms TR Peak Velocity 259.0 cm/s TR Peak Gradient 26.8 mmHg Right Atrial Pressure 10.0 mmHg Pulmonary Artery Systolic Pressu 36.8 mmHg Right Ventricular Systolic Press 36.8 mmHg PV Peak Velocity 124.0 cm/s PV Peak Gradient 6.2 mmHg PV Mean Velocity 82.4 cm/s PV Mean Gradient 3.0 mmHg PV Velocity Time Integral 22.6 cm LV E' Lateral Velocity 12.3 cm/s Mitral E to LV E' Lateral Ratio 3.7 LV E' Septal Velocity 6.2 cm/s Mitral E to LV E' Septal Ratio 7.3
[2017-02-16] VITALS: BP 94/50
--- NOTE | 2017-02-16 00:30 | NUR ---
PT ALERT, AWAKE. PT GIVEN SKIN CARE. COCCYX RED, ATTEMPTED TO REPOSTION PATIENT, PT REFUSING. EDUCATION GIVEN. PT LUNGS WITH CRACKLES AT BASES, HIFLOW NC DOWN TO 60% FIO2 PULSE OX 95% AT REST.
[2017-02-16 06:14] LABS: ABSOLUTE BASOPHIL COUNT 0 /CUMM (0.0-0.2); ABSOLUTE EOSINOPHIL COUNT 0 /CUMM (0.0-0.7); ABSOLUTE GRANULOCYTE CT 9.9 /CUMM (1.4-6.5); ABSOLUTE LYMPH COUNT 0.3 /CUMM (1.2-3.4); ABSOLUTE MONOCYTE COUNT 0.7 /CUMM (0.10-0.60); BASOPHIL % 0 % (0.0-2.0); EOSINOPHIL % 0.2 % (0-5); GRANULOCYTE % 90.7 % (42.2-75.2); HEMATOCRIT 33.1 % (42-52); MEAN CORPUSCULAR HGB 24.9 PG (27.0-31.0); MEAN CORPUSCULAR VOLUME 75.5 FL (80.0-94.0); MEAN PLATELET VOLUME 7.8 FL (7.4-10.4); PLATELET COUNT 283 /CUMM (130-400); RBC DISTRIBUTION WIDTH 15.8 % (11.5-14.5); RED BLOOD CELL CT 4.39 /CUMM (4.70-6.10); WHITE BLOOD CELL COUNT 10.9 /CUMM (4.8-10.8)
--- NOTE | 2017-02-16 07:00 | PN- Resident CRCU ---
Subjective HPI/CRCU Issues: Patient seen and examined at bedside this AM. He remains on 60% FiO2 via HFNC, though he had FiO2 requirements up to 75% the day prior. Sharif denies fever, chills, chest pain, shortness or breath or wheezing and feels otherwise well. His blood pressure has also been adequate on 5 mcg and he was able to receive 1 dose 20 mg IV lasix with good diuresis. Contacted patient's brim stretcher and was told that Sharif was started on a loading dose of 400 mg amiodarone on 01/19/17 and his dose was decreased recently (on the ) to 200 mg PO daily. 24 Hour Events: Telemetry monitoring: No events. Vital signs last 24 hours: T 97.4-98.5, RR 20-32, HR 68-88, BP 92-135/45-61, O2 sat 87-97% on HFNC 60-75%. Total intake last 24 hours: 1761 cc Total output last 24 hours: 1490 cc Objective Vital Signs & I&O Last 8 Hrs of Vitals and I&O: T 97.4-98.5, RR 20-32, HR 68-88, BP 92-135/45-61, O2 sat 87-97% on HFNC 60-75%. Exam General Appearance: well developed/nourished, no apparent distress, alert, awake Head: atraumatic, normal appearance Ears, Nose, Throat: hearing grossly normal Neck: normal inspection, supple Respiratory: Decreased breath sounds, occasional crackles, occasional wheeze Cardiovascular: regular rate/rhythm Gastrointestinal: normal bowel sounds, soft, non-tender Extremities: normal inspection, normal range of motion, no edema Cranial Nerves: normal hearing, normal speech, PERRL Skin: normal color, warm/dry Skin Temp/Moisture Exam: Warm/Dry Nutrition Nutrition: P.O. diet Current Medications: Current Medications Sig/Evonne Start time Last Medication Dose Route Stop Time Status Admin Acetaminophen 325 MG Q6P PRN 02/14 2015 AC PO Albuterol Sulfate 3 ML TID 02/15 1600 DC INH Albuterol Sulfate 3 ML TID PRN 02/15 1345 AC INH Allopurinol 200 MG DAILY 02/15 1000 AC 02/16 PO 0954 Amiodarone HCl 400 MG DAILY 02/16 1022 UNVr PO Apixaban 5 MG BID 02/14 2200 AC 02/16 PO 0954 Aspirin Buffered 81 MG DAILY 02/15 1000 AC 02/16 PO 0954 Ceftriaxone Sodium 1,000 MG 1400 02/15 1400 DC 02/15 IV 1503 Cyanocobalamin 2,000 MCG DAILY 02/15 1000 AC 02/16 PO 0954 Dobutamine HCl 250 MG Q14H 02/15 0945 AC 02/15 Dextrose/Water 250 ML IV 2153 Doxycycline Hyclate 100 MG BID 02/16 1000 AC PO 02/22 2201 Doxycycline Hyclate 100 MG 1400 02/15 1400 DC 02/15 Sodium Chloride 100 ML IV 1503 Furosemide 100 MG Q20H 02/16 1000 AC 02/16 Sodium Chloride 100 ML IV 1028 Furosemide 20 MG ONCE ONE 02/15 1345 DC 02/15 IV 02/15 1346 1503 Insulin Aspart 0 TIDAC 02/15 0800 AC SC Ipratropium Wilson 2.5 ML TID 02/15 1600 DC INH Ipratropium Wilson 2.5 ML TID PRN 02/15 1345 AC INH Omeprazole 20 MG DAILY 02/15 1000 AC 02/16 PO 0954 Oxycodone HCl 5 MG Q6P PRN 02/14 2015 AC PO Oxycodone/ 2 TAB Q6P PRN 02/14 2015 AC Acetaminophen PO Prednisone 50 MG DAILY 02/16 1000 AC 02/16 PO 0954 Sodium Chloride 2 SPRAY BID 02/15 2200 AC 02/[address] Scan Findings: IMPRESSION: 1. Left apical pneumothorax, increased in size since the prior examination dated 06/16/2016. Significant interval increase in bilateral bullous emphysema, most prominent within the right lung base. 2. New diffuse bilateral ground-glass opacities, which could represent fluid overload. An infectious process cannot be excluded. Bilateral fibrotic changes, increased since the prior examination. 3. Small right-sided pleural effusion. Redemonstration of bilateral pleural thickening. 4. Prominent sigmoid diverticulosis without adjacent inflammatory change to suggest acute diverticulitis. 5. Diffuse atherosclerotic calcifications throughout the abdominal aorta and its branch vessels. Focal abdominal aortic aneurysm just proximal to the bifurcation which measures up to 2.9 cm. ECHO Findings: CONCLUSIONS 1. This was a technically difficult and limited examination due to the patient's body habitus and clinical status. 2. Aortic sclerosis is present with minimal to mild aortic insufficiency. There is no significant valvular stenosis. 3. Mitral leaflet thickening is present with mild to moderate anular calcification and mild mitral insufficiency with mild to moderate left atrial enlargement. 4. There is no significant pericardial fluid present. 5. The left ventricular chamber is upper normal in size. There is global hypokinesia present which appears worse in the anteroseptal, apical and inferobasal segments. The ejection fraction is approximately 25%. 6. The right heart structures are grossly normal. Mild to moderate tricuspid insufficiency is present with minimal to mild pulmonic insufficiency and an estimated RV systolic pressure of 36 mmHg. 7. Pacemaker wires are present in the right heart chambers. 8. If clinically indicated, a MUGA scan might be useful in this patient. Impression/Plan Impression/Problem List Impression: Mr. Merrill is an 81 year old male with PMH malignant mesothelioma , chronic left pneumothorax, severe emphysema, severe cardiomyopathy with low ejection fraction, recent PPM implantation 8 days ago at the [facility], paroxysmal atrial fibrillation on amiodarone and anticoagulation with eliquis, CAD s/p CABG, mild mitral insufficiency, mild-moderate tricuspid insufficiency, gout and HTN who presented to [facility] on 02/14/17 with chief complaint of shortness of breath, non-productive cough and decreased exercise tolerance for three days. In the ED: Vital signs showed T 96.8, HR 117, RR 28, BP 104/64 and O2 sat 63% on room air. He was put on 100% nonrebreather with improvement of saturations to 96% Labs were significant for WBC 11 with no bands, H&H 13.9/43.2, Na 133, K 4.6, BUN/cre 24/1.1, Glu 207, TBili 1.4, AST 37, ALT 85, alk phos 140, trop 0.01, proBNP 2430, INR 3.12. CXR was performed and showed moderate left pneumothorax increased in size from 06/16/16. Bilateral airspace opacities suggestive of new infiltrates. New pacer electrodes in RA and RV. Patient is admitted to the ICU and the following is the management: 1. Acute on chronic hypoxic respiratory failure * Likely 2/2 combination of bilateral pleural effusions, bilateral airspace disease, malignant mesothelioma, possible fluid overload and possible amiodarone induced lung toxicity * Continue O2 supplementation with HFNC, no further escalation to CPAP/BiPAP/ intubation if respiratory status deteriorates as patient is DNR/DNI * Discontinue Ceftriaxone 1 g IV daily and doxycycline 100 mg daily; start PO doxycycline for 7 days * Continue albuterol and atrovent/TRCs * Continue prednisone 50 mg PO daily * While on steroids, continue NSS (coverage to start with FSG >250) * Continue conservative tx of PTX 2. Hypotension * Likely cardiac related in the setting of cardiomyopathy with reduced EF * Continue dobutamine drip at 5 mcg to maintain an adequate MAP so lasix drip can be started * Echocardiogram shows LVEF 25%, global hypokinesia, pacemaker wires in R heart chamber * Continue macias for strict Is/Os, daily weights * Continue to hold lisinopril while hypotensive 3. History of atrial fibrillation * Continue eliquis 5 mg PO BID * Continuous telemetry monitoring for now * Restart amiodarone today after confirming dose with outpatient brim stretcher and after discussion with Dr. Devan MD who suggested continuing 200 mg QD 4. Cardiomyopathy with reduced EF * Strict Is/Os/Daily weights * Cardio consult appreciated, continue to follow up recommendations * Continuous telemetry monitoring * Lasix drip for fluid overload to improve pulmonary status 5. CAD s/p CABG * Continue ASA 81 mg PO daily * Continue to hold statin in setting of slight transaminitis 6. CKD * Monitor renal function * Avoid nephrotoxins 7. History of gout * Continue allopurinol 200 mg PO daily DNR/DNI Heart Healthy Diet DVTP: Eliquis Mild to severe pain pathway Problem List: 1. Pneumothorax on left 2. Ischemic cardiomyopathy 3. Congestive heart failure 4. Atrial flutter 5. Gout 6. DVT prophylaxis 7. HLD (hyperlipidemia) 8. Transaminitis Pain Ratin Tomorrow's Labs & Rationales: CBC (leukocytosis, anemia) ICU bundle (hyponatremia, monitor renal function with lasix) Plan DVT/Prophylaxis: pharmacological (Eliquis)
[2017-02-16 08:00] VITALS: BP 102/50
--- NOTE | 2017-02-16 08:34 | NUR ---
@0800-PT ALERT AND ORIENTED. INAJA WITH LIMITED HEARING TO L EAR AND DEAFNESS TO R EAR. FOLLOWS COMMANDS. AFEBRILE. DENIES CP/SOB. CONT ON HIFLO O2 THERAPY AT 60%. O2SAT 95%, DESAT WITH ACTIVITY. NEBS PER RT. NSR HR 70S/ BP STABLE. PACER NOTED TO W. NO PACER SPIKES NOTED IN RHYTHM. HH DIET PROVIDED WITH ENSURE. ABD SOFT, DENIES TENDERNESS ON PALPATION. SKIN INTACT, ALPS IN PLACE. REDDENED COCCYX-REPOSITIONED WITH PILLOWS TO BONY PROMINENCES. IV DOBUTAMINE CONT TO INFUSE AT 5MCG/KG OR 17.6ML/HR. ACCUCHECK 147-NO COVERAGE NEEDED PER SS. CONT TO MONITOR, CALL AMATO WITHIN REACH.
--- NOTE | 2017-02-16 10:16 | PN- CRCU ---
Subjective HPI/Critical Care Issues: Patient seen and examined at bedside this AM. He remains on 60% FiO2 via HFNC, though he had FiO2 requirements up to 75% the day prior. Sharif denies fever, chills, chest pain, shortness or breath or wheezing and feels otherwise well. His blood pressure has also been adequate on 5 mcg and he was able to receive 1 dose 20 mg IV lasix with good diuresis. 24 Hour Events: Telemetry monitoring: No events. Vital signs last 24 hours: T 97.4-98.5, RR 20-32, HR 68-88, BP 92-135/45-61, O2 sat 87-97% on HFNC 60-75%. Total intake last 24 hours: 1761 cc Total output last 24 hours: 1490 cc Objective Current Medications: Current Medications Sig/Evonne Start time Last Medication Dose Route Stop Time Status Admin Acetaminophen 325 MG Q6P PRN 02/14 2015 AC PO Albuterol Sulfate 3 ML TID 02/15 1600 DC INH Albuterol Sulfate 3 ML TID PRN 02/15 1345 AC INH Allopurinol 200 MG DAILY 02/15 1000 AC 02/16 PO 0954 Apixaban 5 MG BID 02/14 2200 AC 02/16 PO 0954 Aspirin Buffered 81 MG DAILY 02/15 1000 AC 02/16 PO 0954 Ceftriaxone Sodium 1,000 MG 1400 02/15 1400 DC 02/15 IV 1503 Cyanocobalamin 2,000 MCG DAILY 02/15 1000 AC 02/16 PO 0954 Dobutamine HCl 250 MG Q14H 02/15 0945 AC 02/15 Dextrose/Water 250 ML IV 2153 Doxycycline Hyclate 100 MG BID 02/16 1000 UNVr PO 02/22 220 Doxycycline Hyclate 100 MG 1400 02/15 1400 DC 02/15 Sodium Chloride 100 ML IV 1503 Furosemide 100 MG CONTINOUS INFUSION 02/16 1000 UNir Sodium Chloride 100 ML IV Furosemide 20 MG ONCE ONE 02/15 1345 DC 02/15 IV 02/15 1346 1503 Insulin Aspart 0 TIDAC 02/15 0800 AC SC Ipratropium [place] 2.5 ML TID 02/15 1600 DC INH Ipratropium [place] 2.5 ML TID PRN 02/15 1345 AC INH Omeprazole 20 MG DAILY 02/15 1000 AC 02/16 PO 0954 Oxycodone HCl 5 MG Q6P PRN 02/14 2015 AC PO Oxycodone/ 2 TAB Q6P PRN 02/14 2015 AC Acetaminophen PO Prednisone 50 MG DAILY 02/16 1000 AC 02/16 PO 0954 Sodium Chloride 2 SPRAY BID 02/15 2200 AC 02/16 NAVYA 0954 Vital Signs & I&O Last 24 Hrs of Vitals and I&O: Vital Signs Date Time Temp Pulse Resp B/P B/P Pulse O2 O2 Flow FiO2 Mean Ox Delivery Rate 02/16 08 98.3 72 18 102/50 96 Nasal 60% Cannula 02/16 0800 94 Nasal 60% Cannula 02/16 0339 93 Nasal 60% Cannula 02/16 0041 94 Nasal 60% Cannula 02/16 0000 93 Nasal 60% Cannula 02/16 0000 98.5 82 30 94/50 91 Nasal 60% Cannula 02/15 2303 94 Nasal 60% Cannula 02/15 2153 80 110/53 02/15 2000 93 Nasal 60% Cannula 02/15 1600 98.2 80 26 106/60 93 Nasal 70% Cannula 02/15 1600 94 Nasal 70% Cannula 02/15 1343 Nasal 70% Cannula 02/15 1200 94 Nasal 70% Cannula 02/15 1200 98.4 80 30 98/46 94 Nasal 70% Cannula Intake & Output 02/16 1600 02/16 0800 02/16 0000 Intake Total 340 672 Output Total 700 580 Balance -360 92 Intake, IV 140 112 Intake, Oral 200 560 Number 0 0 Bowel Movements Output, Urine 700 580 Patient 128 lb Weight Weight Bed scale Measurement Method Laboratory Tests 02/16 02/15 0505 0440 Chemistry Sodium (137 - 145 mmol/L) 132 L 133 L Potassium (3.5 - 5.1 mmol/L) 4.2 4.1 Chloride (98 - 107 mmol/L) 98 100 Carbon Dioxide (22 - 30 mmol/L) 26 21 L Anion Gap (5 - 16) 9 12 BUN (9 - 20 mg/dL) 39 H 31 H Creatinine (0.7 - 1.2 mg/dL) 1.0 1.2 Estimated GFR (>60 ml/min) > 60 58 L Glucose (65 - 99 mg/dL) 141 H 179 H Calcium (8.4 - 10.2 mg/dL) 7.9 L 8.0 L Phosphorus (2.5 - 4.5 mg/dL) 3.6 4.5 Magnesium (1.6 - 2.3 mg/dL) 2.4 H 2.2 Total Bilirubin (0.2 - 1.3 mg/dL) 0.4 0.7 AST (17 - 59 U/L) 41 28 ALT (21 - 72 U/L) 76 H 79 H Albumin (3.5 - 5.0 g/dL) 2.4 L 2.5 L Hematology CBC w Diff NO MAN DIFF REQ MAN DIFF ORDERED WBC (4.8 - 10.8 /CUMM) 10.9 H 8.8 RBC (4.70 - 6.10 /CUMM) 4.39 L 4.78 Hgb (14.0 - 18.0 G/DL) 10.9 L 11.9 L Hct (42 - 52 %) 33.1 L 36.3 L MCV (80.0 - 94.0 FL) 75.5 L 76.0 L MCH (27.0 - 31.0 PG) 24.9 L 24.8 L RDW (11.5 - 14.5 %) 15.8 H 16.1 H Plt Count (130 - 400 /CUMM) 283 283 MPV (7.4 - 10.4 FL) 7.8 7.6 Gran % (42.2 - 75.2 %) 90.7 H 95.0 H Lymphocytes % (20.5 - 51.1 %) 2.9 L 3.2 L Monocytes % (1.7 - 9.3 %) 6.2 1.8 Eosinophils % (0 - 5 %) 0.2 0 Basophils % (0.0 - 2.0 %) 0 L 0 L Absolute Granulocytes (1.4 - 6.5 /CUMM) 9.9 H 8.3 H Absolute Lymphocytes (1.2 - 3.4 /CUMM) 0.3 L 0.3 L Absolute Monocytes (0.10 - 0.60 /CUMM) 0.7 H 0.2 Absolute Eosinophils (0.0 - 0.7 /CUMM) 0 0 Absolute Basophils (0.0 - 0.2 /CUMM) 0 0 Platelet Estimate (ADEQUATE) ADEQUATE Polychromasia 1+ Poikilocytosis 1+ Ovalocytes 1+ PUBS MCHC (33.0 - 37.0 G/DL) 33.0 32.6 L 02/142 Chemistry Lactic Acid (0.7 - 2.1 mmol/L) 1.8 Urines Urine Color (YEL,AMB,STR) YEL Urine Clarity (CLEAR) CLEAR Urine pH (5.0 - 8.0) 5.5 Ur Specific [place] (1.001 - 1.035) 1.025 Urine Protein (NEG,<30 MG/DL) NEG Urine Ketones (NEG) NEG Urine Nitrite (NEG) NEG Urine Bilirubin (NEG) NEG Urine Urobilinogen (0.1 - 1.0 EU/dl) 1.0 Ur Leukocyte Esterase (NEG) NEG Ur Microscopic SEDIMENT EXAMINED Urine RBC (0 - 5 /HPF) 5-10 H Urine WBC (0 - 2 /HPF) RARE Urine Bacteria (NEG/NONE) MOD H Hyaline Casts (0/LPF) 5-10 H Urine Hemoglobin (NEG) LARGE H Urine Glucose (N MG/DL) NEG 02/14 02/14 1134 1040 Blood Gas pH (7.35 - 7.45 PH) 7.48 H pCO2 (35 - 45 TORR) 27 L pO2 (80 - 100 TORR) 50 *L HCO3 (21 - 28 MEQ/L) 20 L ABG O2 Sat (Measured) (>96.0 %) 85.0 L O2 Concentration % 55% O2 Delivery Method VENTI MASK Chemistry Sodium (137 - 145 mmol/L) 133 L Potassium (3.5 - 5.1 mmol/L) 4.6 Chloride (98 - 107 mmol/L) 94 L Carbon Dioxide (22 - 30 mmol/L) 23 Anion Gap (5 - 16) 16 BUN (9 - 20 mg/dL) 24 H Creatinine (0.7 - 1.2 mg/dL) 1.1 Estimated GFR (>60 ml/min) > 60 BUN/Creatinine Ratio (7 - 25 %) 21.8 Glucose (65 - 99 mg/dL) 207 H Calcium (8.4 - 10.2 mg/dL) 8.4 Magnesium (1.6 - 2.3 mg/dL) 2.2 Total Bilirubin (0.2 - 1.3 mg/dL) 1.4 H AST (17 - 59 U/L) 37 ALT (21 - 72 U/L) 85 H Alkaline Phosphatase (< 127 U/L) 140 H Troponin I (<0.11 ng/ml) < 0.01 Mwv-H-Ezbninvslor Pept (<125 pg/mL) 2430 H Total Protein (6.3 - 8.2 g/dL) 5.9 L Albumin (3.5 - 5.0 g/dL) 3.1 L Globulin (1.9 - 4.2 gm/dL) 2.8 Albumin/Globulin Ratio (1.1 - 2.2 %) 1.1 TSH (0.270 - 4.200 uIU/mL) 4.340 H Free T4 (0.85 - 1.93 ng/dL) 2.34 H Total T3 (0.97 - 1.69 ng/mL) 0.55 L Coagulation PT (9.4 - 12.5 SEC) 32.4 H INR (0.90 - 1.17) 3.12 H Hematology CBC w Diff NO MAN DIFF REQ WBC (4.8 - 10.8 /CUMM) 11.0 H RBC (4.70 - 6.10 /CUMM) 5.66 Hgb (14.0 - 18.0 G/DL) 13.9 L Hct (42 - 52 %) 43.2 MCV (80.0 - 94.0 FL) 76.3 L MCH (27.0 - 31.0 PG) 24.5 L RDW (11.5 - 14.5 %) 15.9 H Plt Count (130 - 400 /CUMM) 360 MPV (7.4 - 10.4 FL) 7.4 Gran % (42.2 - 75.2 %) 87.0 H Lymphocytes % (20.5 - 51.1 %) 4.4 L Monocytes % (1.7 - 9.3 %) 6.1 Eosinophils % (0 - 5 %) 2.4 Basophils % (0.0 - 2.0 %) 0.1 Absolute Granulocytes (1.4 - 6.5 /CUMM) 9.6 H Absolute Lymphocytes (1.2 - 3.4 /CUMM) 0.5 L Absolute Monocytes (0.10 - 0.60 /CUMM) 0.7 H Absolute Eosinophils (0.0 - 0.7 /CUMM) 0.3 Absolute Basophils (0.0 - 0.2 /CUMM) 0 PUBS MCHC (33.0 - 37.0 G/DL) 32.1 L Miscellaneous Phlebotomy Draw Site RIGHT BRACHIAL Microbiology Date/Time Procedure - Status Source Growth 02/15 2050 Legionella Antigen - COMP URINE ROUT 02/15 2050 Streptococcus pneumoniae Antigen (M - COMP URINE ROUT 02/14 2230 Surveillance Culture - RECD UPPER RESP 02/14 2230 Surveillance Culture - RECD GI 02/14 2126 Urine Culture - CAN URINE ROUT Cancelled: DUPLICATE ORDER 02/14 2126 Respiratory Culture - CAN LOWER RESP Cancelled: SPECIMEN NOT RECEIVED IN LABORATORY 02/14 2126 Gram Stain - CAN LOWER RESP Cancelled: SPECIMEN NOT RECEIVED IN LABORATORY 02/14 2125 Blood Culture - CAN BLOOD Cancelled: Cancelled via OE: Per MD Decision 02/14 2125 Blood Culture - CAN BLOOD Cancelled: Cancelled via OE: Per MD Decision 02/14 2122 Urine Culture - COMP URINE ROUT 02/14 1330 Blood Culture - RES BLOOD 02/14 1325 Blood Culture - RES BLOOD Impression/Plan Impression/Plan Impression/Plan: Physical Exam General Appearance: well developed/nourished, alert, awake, anxious, severe distress, thin Head: atraumatic, normal appearance Eyes: Bilateral: normal appearance, PERRL, EOMI. Ears, Nose, Throat: normal pharynx, normal ENT inspection Neck: normal inspection, supple, full range of motion, no midline tenderness Respiratory: chest non-tender, decreased breath sounds, accessory muscle use, crackles, wheezing, respiratory distress Cardiovascular: regular rate/rhythm, normal peripheral pulses, norml femoral pulses equa Peripheral Pulses: 4+ carotid (R), 4+ carotid (L) Gastrointestinal: normal bowel sounds, soft, non-tender, no organomegaly Extremities: normal inspection, normal capillary refill, normal range of motion, no edema Neurologic/Psych: no motor/sensory deficits, awake, alert, oriented x 3, 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 Skin: intact, normal color, warm/dry Lymphatic: no anterior cervical deandre IMPRESSION This is an unfortunate 81-year-old gentleman with history of severe cardiomyopathy, paroxysmal atrial fibrillation on amiodarone and anticoagulation , previous history of coronary artery disease with CABG, cardiomyopathy with low ejection fraction, moderate mitral insufficiency with mild to moderate tricuspid insufficiency, Recently diagnosed agg malignant mesothelioma (bx done from his abd wall rectus sheath), chronic left pleural effusion now has * Severe hypoxemic respiratory failure which appears to be combination of factors which include aggressive malignant mesothelioma with bilateral pleural effusion, thick pleural rind in the right side, bilateral airspace disease suggestive of either fluid overload or drug-induced lung disease versus advancing mesothelioma. Patient may be in mild congestive heart failure aswell, HIs blood pressure is low with low ejection fraction. * Worsening performance status in the recent past with poor appetite related to malignant mesothelioma and severe cardiomyopathy ( recent bx at [facility] c/w agg malignant mesothelioma * Chronic left pneumothorax which is slowly increasing in size is also contributing to shortness of breath * Severe lung disease with emphysema with significant pleural blebs, significant bronchiectasis within the anterior medial aspect of the right upper lobe with rounded atelectasis and chronic pleural parenchymal scarring with previous mucous plugging and chronic lung disease * Significant valvular heart disease with mitral regurgitation and tricuspid regurgitation * History of Severe cardiomyopathy with low ejection fraction with valvular heart disease with low flow state with low blood pressure * Paroxysmal atrial fibrillation now appears to be in sinus rhythm with left bundle branch block * Chronic kidney disease * 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 * Cont high flow oxygen * large bore IVs * Change abx to doxy only * Po prednisone 50 mg daily from am * Albuterol and ipratropium nebulizer therapy around the clock prn * Get records from [facility] and if he is on amio only for a week this can be resumed * Keep his O2 sat 92-94% * Start on lasix drip if pt can ifeoma * Continue allopurinol and proton pump inhibitor * Continue his eloquis * Maynard catheter to continue. * Vitamin B12 2000 units by mouth daily * No therapy is necessary for his pneumothorax. 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 * Overall prognosis poor Multiple treatment options were discussed with the patient initially, including transferred to the [facility] versus transferred to a tertiary care facility. However at this time the patient wishes to continue his rx at [facility] and he wants maximum conservative therapy. He does not wish any life- support. He does not wish noninvasive ventilation, or dialysis or mechanical ventilation or Vasopressors. He is agreeable to vasoactive agents like dobutamine. He does have rapidly advancing malignancy, cardiomyopathy and severe lung disease. I did review some of his records from the [facility] and his prognosis appears to be extremely grim and we will honor the patient's wishes. We will make him DNR/DNI with conservative care only If he were to get worse then patient wishes to be made Com[facility]. Family meeting held I did also discuss with the physicians at [facility] Patient is critically ill total time spent 40 minutes
--- NOTE | 2017-02-16 10:36 | NUR ---
@1030-IV LASIX GTT STARTED AT 5MG/HR ORD. WILL CONT TO MONITOR VS CLOSELY. CONT TO PROVIDE SUPPORT AND COMFORT NEEDED.
--- NOTE | 2017-02-16 12:23 | NUR ---
@1200-IV LASIX GTT INCREASED TO 6MG/HR PER MD ORDER. VSS. AT BEDSIDE AND UPDATED. CONT TO MONITOR, CALL AMATO WITHIN REACH.
--- NOTE | 2017-02-16 13:00 | PN- Cardiology ---
Subjective Subjective: Clearly, the patient appears to be stable. He continues to have some respiratory distress. He remains on high flow oxygen. Overall, he feels like he is doing slightly better than yesterday. No new cardiac issues noted. Objective Vital Signs and I&Os Vital Signs Date Time Temp Pulse Resp B/P B/P Pulse O2 O2 Flow FiO2 Mean Ox Delivery Rate 02/16 1225 92 Nasal 60% Cannula 02/16 1200 94 Nasal 60% Cannula 02/16 1130 124/53 02/16 0800 98.3 72 18 102/50 96 Nasal 60% Cannula 02/16 0800 94 Nasal 60% Cannula 02/16 0339 93 Nasal 60% Cannula 02/16 0041 94 Nasal 60% Cannula 02/16 0000 93 Nasal 60% Cannula 02/16 0000 98.5 82 30 94/50 91 Nasal 60% Cannula 02/15 2303 94 Nasal 60% Cannula 02/15 2153 80 110/53 02/15 2000 93 Nasal 60% Cannula 02/15 1600 98.2 80 26 106/60 93 Nasal 70% Cannula 02/15 1600 94 Nasal 70% Cannula 02/15 1343 Nasal 70% Cannula Intake & Output 02/16 1600 02/16 0800 02/16 0000 02/15 1600 02/15 0800 02/15 0000 Intake Total 340 672 749 92 250 Output Total 700 580 210 175 200 Balance -360 92 539 -83 50 Intake, IV 140 112 269 32 250 Intake, Oral 200 560 480 60 0 Intake, Tube Feeding Intake, Tube Irrigant Number 0 0 0 0 0 Bowel Movements Output, Chest Tube Drainage Output, Urine 700 580 210 175 200 Patient 128 lb 129 lb 129 lb Weight Weight Bed scale Bed scale Measurement Method Current Medications: Current Medications Sig/Evonne Start time Last Medication Dose Route Stop Time Status Admin Acetaminophen 325 MG Q6P PRN 02/14 2015 AC PO Albuterol Sulfate 3 ML TID 02/15 1600 DC INH Albuterol Sulfate 3 ML TID PRN 02/15 1345 AC INH Allopurinol 200 MG DAILY 02/15 1000 AC 02/16 PO 0954 Amiodarone HCl 200 MG DAILY 02/16 1238 UNVr PO Amiodarone HCl 400 MG DAILY 02/16 1022 DC PO Apixaban 5 MG BID 02/14 2200 AC 02/16 PO 0954 Aspirin Buffered 81 MG DAILY 02/15 1000 AC 02/16 PO 0954 Ceftriaxone Sodium 1,000 MG 1400 02/15 1400 DC 02/15 IV 1503 Cyanocobalamin 2,000 MCG DAILY 02/15 1000 AC 02/16 PO 0954 Dobutamine HCl 250 MG Q14H 02/15 0945 AC 02/15 Dextrose/Water 250 ML IV 2153 Doxycycline Hyclate 100 MG BID 02/16 1000 AC 02/16 PO 02/22 2201 1129 Doxycycline Hyclate 100 MG 1400 02/15 1400 DC 02/15 Sodium Chloride 100 ML IV 1503 Furosemide 100 MG Q20H 02/16 1000 AC 02/16 Sodium Chloride 100 ML IV 1028 Furosemide 20 MG ONCE ONE 02/15 1345 DC 02/15 IV 02/15 1346 1503 Insulin Aspart 0 TIDAC 02/15 0800 AC SC Ipratropium [place] 2.5 ML TID 02/15 1600 DC INH Ipratropium [place] 2.5 ML TID PRN 02/15 1345 AC INH Omeprazole 20 MG DAILY 02/15 1000 AC 02/16 PO 0954 Oxycodone HCl 5 MG Q6P PRN 02/14 2015 AC PO Oxycodone/ 2 TAB Q6P PRN 02/14 2015 AC Acetaminophen PO Prednisone 50 MG DAILY 02/16 1000 AC 02/16 PO 0954 Sodium Chloride 2 SPRAY BID 02/15 220 AC 02/16 NAVYA 0954 Results Last 48 Hrs of Labs/Mics: Laboratory Tests 02/16/17 0505: Anion Gap 9, Estimated GFR > 60, Glucose 141 H, Calcium 7.9 L, Phosphorus 3.6, Magnesium 2.4 H, Total Bilirubin 0.4, AST 41, ALT 76 H, Albumin 2.4 L, CBC w Diff NO MAN DIFF REQ, RBC 4.39 L, MCV 75.5 L, MCH 24.9 L, RDW 15.8 H, MPV 7.8, Gran % 90.7 H, Lymphocytes % 2.9 L, Monocytes % 6.2, Eosinophils % 0.2, Basophils % 0 L, Absolute Granulocytes 9.9 H, Absolute Lymphocytes 0.3 L, Absolute Monocytes 0.7 H, Absolute Eosinophils 0, Absolute Basophils 0, PUBS MCHC 33.0 02/15/17 0440: Anion Gap 12, Estimated GFR 58 L, Glucose 179 H, Calcium 8.0 L, Phosphorus 4.5, Magnesium 2.2, Total Bilirubin 0.7, AST 28, ALT 79 H, Albumin 2.5 L, CBC w Diff MAN DIFF ORDERED, RBC 4.78, MCV 76.0 L, MCH 24.8 L, RDW 16.1 H, MPV 7.6, Gran % 95.0 H, Lymphocytes % 3.2 L, Monocytes % 1.8, Eosinophils % 0, Basophils % 0 L, Absolute Granulocytes 8.3 H, Absolute Lymphocytes 0.3 L, Absolute Monocytes 0.2, Absolute Eosinophils 0, Absolute Basophils 0, Platelet Estimate ADEQUATE, Polychromasia 1+, Poikilocytosis 1+, Ovalocytes 1+, PUBS MCHC 32.6 L 02/14/172239: Lactic Acid 1.8 02/14/172121: Urine Color YEL, Urine Clarity CLEAR, Urine pH 5.5, Ur Specific [place] 1.025, Urine Protein NEG, Urine Ketones NEG, Urine Nitrite NEG, Urine Bilirubin NEG, Urine Urobilinogen 1.0, Ur Leukocyte Esterase NEG, Ur Microscopic SEDIMENT EXAMINED, Urine RBC 5-10 H, Urine WBC RARE, Urine Bacteria MOD H, Hyaline Casts 5-10 H, Urine Hemoglobin LARGE H, Urine Glucose NEG Microbiology 02/15 2050 URINE ROUT: Legionella Antigen - COMP 02/15 2050 URINE ROUT: Streptococcus pneumoniae Antigen (M - COMP 02/14 2230 UPPER RESP: Surveillance Culture - COMP 02/14 2230 GI: Surveillance Culture - COMP 02/14 2122 URINE ROUT: Urine Culture - COMP Assessment/Plan Assessment/Plan Assessment: 1. Worsening respiratory distress / hypoxemic respiratory failure - likely multifactorial as noted above 2. History of atrial flutter 3. Recent PPM placement 4. Mesothelioma 5. History of CAD / CABG 6. Cardiomyopathy; ischemic vs tachycardiac mediated 7. Worsening left PTX Recommendations: -The patient appears to be improving slowly. Continue as per the pulmonary service. -The patient's echocardiogram continues to show depressed left ventricular systolic function despite the fact that he has been in sinus rhythm. In view of his past history, this is somewhat concerning. -With respect to his antiarrhythmic agents, I do feel that amiodarone lung toxicity is unlikely. The patient is only been on amiodarone for a few weeks. I do feel that the amiodarone will help prevent recurrence of atrial flutter and further deterioration in the patient's cardiac function. -If possible, after discussion with pulmonary, consider restarting amiodarone at 100 or 200 mg daily for maintenance. Continue telemetry? Yes
--- NOTE | 2017-02-16 15:15 | NUR ---
@1400-PT MEDICATED WITH IV LASIX 40MG X 1 AND LASIX GTT INCREASED TO 7MG/HR PER MD ORDER. VSS. AT BEDSIDE. PT REPOSITIONED WITH PILLOWS TO BONY PROMINENCES. CONT TO MONITOR, CALL LIMA HAUSER.
[2017-02-16 16:00] VITALS: BP 110/60
[2017-02-17] VITALS: BP 102/48
[2017-02-17 04:00] VITALS: BP 102/48
[2017-02-17 05:19] LABS: ABSOLUTE BASOPHIL COUNT 0 /CUMM (0.0-0.2); ABSOLUTE EOSINOPHIL COUNT 0 /CUMM (0.0-0.7); ABSOLUTE GRANULOCYTE CT 8.4 /CUMM (1.4-6.5); ABSOLUTE LYMPH COUNT 0.4 /CUMM (1.2-3.4); ABSOLUTE MONOCYTE COUNT 0.6 /CUMM (0.10-0.60); BASOPHIL % 0 % (0.0-2.0); EOSINOPHIL % 0 % (0-5); GRANULOCYTE % 89.3 % (42.2-75.2); HEMATOCRIT 35.8 % (42-52); MEAN CORPUSCULAR HGB 24.6 PG (27.0-31.0); MEAN CORPUSCULAR HGB CONC 32.2 G/DL (33.0-37.0); MEAN CORPUSCULAR VOLUME 76.3 FL (80.0-94.0); MEAN PLATELET VOLUME 7.7 FL (7.4-10.4); PLATELET COUNT 334 /CUMM (130-400); RBC DISTRIBUTION WIDTH 16.5 % (11.5-14.5); WHITE BLOOD CELL COUNT 9.4 /CUMM (4.8-10.8)
--- NOTE | 2017-02-17 07:08 | PN- Resident CRCU ---
Subjective HPI/CRCU Issues: Patient seen and examined at bedside this AM. He is sitting up comfortably in bed with improved FiO2 requirements to 55% and saturating well. Patient reports his respiratory status is improved since yesteday. He denies chest pain, wheezing or body pain. Patient is continued on 5 mcg/kg/min of dobutamine with stable pressure; he is also continued on lasix drip at 7 mg/hr with great urine output. He is negative 2126.5 cc. Will discontinue amiodarone and discuss with cardiology about starting multaq and discuss dosing recommendations with Dr. Devan MD. 24 Hour Events: library monitor: No overnight events. Vital signs last 24 hours: T 97.3-98.3, HR 64-84, RR 18-26, BP 102-133/49-60, O2 92-98% on HFNC 60%FiO2 reduced to 55% FiO2. Total intake last 24 hours: 1998.5 cc Total output last 24 hours: 4125 cc Objective Vital Signs & I&O Last 8 Hrs of Vitals and I&O: T 97.3-98.3, HR 64-84, RR 18-26, BP 102-133/49-60, O2 92-98% on HFNC 60%FiO2 reduced to 55% FiO2. Exam General Appearance: well developed/nourished, no apparent distress, alert, awake , comfortable Head: atraumatic, normal appearance Ears, Nose, Throat: normal pharynx, hearing grossly normal Neck: normal inspection, supple, no midline tenderness Respiratory: Improving aeration, no wheezing appreciated Cardiovascular: regular rate/rhythm Gastrointestinal: normal bowel sounds, soft, non-tender, no organomegaly Extremities: normal inspection, no edema Cranial Nerves: normal hearing, normal speech Skin: intact, normal color, warm/dry Nutrition Nutrition: P.O. diet Current Medications: Current Medications Sig/Evonne Start time Last Medication Dose Route Stop Time Status Admin Acetaminophen 325 MG Q6P PRN 02/14 2015 AC PO Albuterol Sulfate 3 ML TID PRN 02/15 1345 AC INH Allopurinol 200 MG DAILY 02/15 1000 AC 02/16 PO 0954 Amiodarone HCl 200 MG DAILY 02/16 1238 AC 02/16 PO 1524 Amiodarone HCl 400 MG DAILY 02/16 1022 DC PO Apixaban 5 MG BID 02/14 2200 AC 02/16 PO 2117 Aspirin Buffered 81 MG DAILY 02/15 1000 AC 02/16 PO 0954 Ceftriaxone Sodium 1,000 MG 1400 02/15 1400 DC 02/15 IV 1503 Cyanocobalamin 2,000 MCG DAILY 02/15 1000 AC 02/16 PO 0954 Dobutamine HCl 250 MG Q14H 02/15 0945 AC 02/17 Dextrose/Water 250 ML IV 0243 Doxycycline Hyclate 100 MG BID 02/16 1000 AC 02/16 PO 02/22 2201 2117 Doxycycline Hyclate 100 MG 1400 02/15 1400 DC 02/15 Sodium Chloride 100 ML IV 1503 Furosemide 100 MG Q10H 02/16 2000 AC 02/16 Sodium Chloride 100 ML IV 2117 Furosemide 40 MG ONCE ONE 02/16 1400 DC 02/16 IV PUSH 02/16 1401 1401 Furosemide 40 MG .STK-MED ONE 02/16 1357 DC IV 02/16 1358 Furosemide 100 MG Q20H 02/16 1000 DC 02/16 Sodium Chloride 100 ML IV 02/16 2000 1028 Insulin Aspart 0 TIDAC 02/15 0800 AC SC Ipratropium [place] 2.5 ML TID PRN 02/15 1345 AC INH Omeprazole 20 MG DAILY 02/15 1000 AC 02/16 PO 0954 Oxycodone HCl 5 MG Q6P PRN 02/14 2015 AC PO Oxycodone/ 2 TAB Q6P PRN 02/14 2015 AC Acetaminophen PO Potassium Chloride 20 MEQ DAILY 02/16 1440 AC 02/16 PO 1524 Prednisone 50 MG DAILY 02/16 1000 AC 02/16 PO 0954 Sodium Chloride 2 SPRAY BID 02/15 2200 AC 02/16 NAVYA 2118 Results Results: Blood cultures 02/14: NGTD. Urine antigen for legionella/strep: Negative. CXR Findings: 02/17/17 CXR: IMPRESSION: 1. Slight improvement of the left pneumothorax 2. Mild pulmonary interstitial and alveolar edema, improved as compared to prior. CT Scan Findings: Chest, abdomen, pelvis: IMPRESSION: 1. Left apical pneumothorax, increased in size since the prior examination dated 06/16/2016. Significant interval increase in bilateral bullous emphysema, most prominent within the right lung base. 2. New diffuse bilateral ground-glass opacities, which could represent fluid overload. An infectious process cannot be excluded. Bilateral fibrotic changes, increased since the prior examination. 3. Small right-sided pleural effusion. Redemonstration of bilateral pleural thickening. 4. Prominent sigmoid diverticulosis without adjacent inflammatory change to suggest acute diverticulitis. 5. Diffuse atherosclerotic calcifications throughout the abdominal aorta and its branch vessels. Focal abdominal aortic aneurysm just proximal to the bifurcation which measures up to 2.9 cm. ECHO Findings: CONCLUSIONS 1. This was a technically difficult and limited examination due to the patient's body habitus and clinical status. 2. Aortic sclerosis is present with minimal to mild aortic insufficiency. There is no significant valvular stenosis. 3. Mitral leaflet thickening is present with mild to moderate anular calcification and mild mitral insufficiency with mild to moderate left atrial enlargement. 4. There is no significant pericardial fluid present. 5. The left ventricular chamber is upper normal in size. There is global hypokinesia present which appears worse in the anteroseptal, apical and inferobasal segments. The ejection fraction is approximately 25%. 6. The right heart structures are grossly normal. Mild to moderate tricuspid insufficiency is present with minimal to mild pulmonic insufficiency and an estimated RV systolic pressure of 36 mmHg. 7. Pacemaker wires are present in the right heart chambers. 8. If clinically indicated, a MUGA scan might be useful in this patient. Impression/Plan Impression/Problem List Impression: Mr. Merrill is an 81 year old male with PMH malignant mesothelioma , chronic left pneumothorax, severe emphysema, severe cardiomyopathy with low ejection fraction, recent PPM implantation 8 days ago at the [facility], paroxysmal atrial fibrillation on amiodarone and anticoagulation with eliquis, CAD s/p CABG, mild mitral insufficiency, mild-moderate tricuspid insufficiency, gout and HTN who presented to [facility] on 02/14/17 with chief complaint of shortness of breath, non-productive cough and decreased exercise tolerance for three days. In the ED: Vital signs showed T 96.8, HR 117, RR 28, BP 104/64 and O2 sat 63% on room air. He was put on 100% nonrebreather with improvement of saturations to 96% Labs were significant for WBC 11 with no bands, H&H 13.9/43.2, Na 133, K 4.6, BUN/cre 24/1.1, Glu 207, TBili 1.4, AST 37, ALT 85, alk phos 140, trop 0.01, proBNP 2430, INR 3.12. CXR was performed and showed moderate left pneumothorax increased in size from 06/16/16. Bilateral airspace opacities suggestive of new infiltrates. New pacer electrodes in RA and RV. Patient is admitted to the ICU and the following is the management: 1. Acute on chronic hypoxic respiratory failure, IMPROVING * Likely 2/2 combination of bilateral pleural effusions, bilateral airspace disease, malignant mesothelioma, possible fluid overload and possible amiodarone induced lung toxicity * Continue O2 supplementation with HFNC, no further escalation to CPAP/BiPAP/ intubation if respiratory status deteriorates as patient is DNR/DNI * FiO2 requirements slowly decreasing and AM CXR shows slight decrease in size of PTX * Continue diuresis with lasix drip * Continue PO doxycycline for a total of 7 days * Continue albuterol and atrovent/TRCs * Continue prednisone 50 mg PO daily * While on steroids, continue NSS (coverage to start with FSG >250) * Continue conservative tx of PTX 2. Hypotension, IMPROVING * Likely cardiac related in the setting of cardiomyopathy with reduced EF * Continue dobutamine drip at 5 mcg to maintain an adequate MAP so lasix drip can be continued at 7 mg/hr * D/C dobutamine drip tomorrow or earlier if patient is noted to have arrhythmias * Echocardiogram shows LVEF 25%, global hypokinesia, pacemaker wires in R heart chamber * Continue macias for strict Is/Os, daily weights * Continue to hold lisinopril while hypotensive 3. History of atrial fibrillation * Continue eliquis 5 mg PO BID * Continuous telemetry monitoring for now * Discontinue amiodarone and start multaq 400 mg PO BID 4. Cardiomyopathy with reduced EF * Strict Is/Os/Daily weights * Cardio consult appreciated, continue to follow up recommendations * Continuous telemetry monitoring * Lasix drip for fluid overload which is improving pulmonary status 5. CAD s/p CABG * Continue ASA 81 mg PO daily * Continue to hold statin in setting of slight transaminitis 6. CKD * Monitor renal function * Avoid nephrotoxins 7. History of gout * Continue allopurinol 200 mg PO daily DNR/DNI Heart Healthy Diet DVTP: Eliquis Mild to severe pain pathway Problem List: 1. Pneumothorax on left 2. Transaminitis 3. Ischemic cardiomyopathy 4. Congestive heart failure 5. Gout 6. Atrial flutter 7. DVT prophylaxis 8. HLD (hyperlipidemia) 9. CAD (coronary artery disease) of artery bypass graft Pain Ratin Tomorrow's Labs & Rationales: CBC (anemia, leukocytosis) ICU bundle (hyponatremia, renal dysfunction in setting of aggressive diuresis) Plan DVT/Prophylaxis: pharmacological (Eliquis)
[2017-02-17 08:00] VITALS: BP 120/70
--- NOTE | 2017-02-17 09:07 | PN- CRCU ---
Subjective HPI/Critical Care Issues: Patient seen and examined at bedside this AM. He is sitting up comfortably in bed with improved FiO2 requirements to 55% and saturating well. Patient reports his respiratory status is improved since yesteday. He denies chest pain, wheezing or body pain. Patient is continued on 5 mcg/kg/min of dobutamine with stable pressure; he is also continued on lasix drip at 7 mg/hr with great urine output. He is negative 2126.5 cc. 24 Hour Events: front desk monitor: No overnight events. Vital signs last 24 hours: T 97.3-98.3, HR 64-84, RR 18-26, BP 102-133/49-60, O2 92-98% on HFNC 60%FiO2 reduced to 55% FiO2. Total intake last 24 hours: 1998.5 cc Total output last 24 hours: 4125 cc Objective Current Medications: Current Medications Sig/Evonne Start time Last Medication Dose Route Stop Time Status Admin Acetaminophen 325 MG Q6P PRN 02/14 2015 AC PO Albuterol Sulfate 3 ML TID PRN 02/15 1345 AC INH Allopurinol 200 MG DAILY 02/15 1000 AC 02/16 PO 0954 Amiodarone HCl 200 MG DAILY 02/16 1238 AC 02/16 PO 1524 Amiodarone HCl 400 MG DAILY 02/16 1022 DC PO Apixaban 5 MG BID 02/14 2200 AC 02/16 PO 2117 Aspirin Buffered 81 MG DAILY 02/15 1000 AC 02/16 PO 0954 Ceftriaxone Sodium 1,000 MG 1400 02/15 1400 DC 02/15 IV 1503 Cyanocobalamin 2,000 MCG DAILY 02/15 1000 AC 02/16 PO 0954 Dobutamine HCl 250 MG Q14H 02/15 0945 AC 02/17 Dextrose/Water 250 ML IV 0243 Doxycycline Hyclate 100 MG BID 02/16 1000 AC 02/16 PO 02/22 2201 2117 Doxycycline Hyclate 100 MG 1400 02/15 1400 DC 02/15 Sodium Chloride 100 ML IV 1503 Furosemide 100 MG Q10H 02/16 2000 AC 02/16 Sodium Chloride 100 ML IV 2117 Furosemide 40 MG ONCE ONE 02/16 1400 DC 02/16 IV PUSH 02/16 1401 1401 Furosemide 40 MG .STK-MED ONE 02/16 1357 DC IV 02/16 1358 Furosemide 100 MG Q20H 02/16 1000 DC 02/16 Sodium Chloride 100 ML IV 02/17 2000 1028 Insulin Aspart 0 TIDAC 02/15 0800 AC SC Ipratropium [place] 2.5 ML TID PRN 02/15 1345 AC INH Omeprazole 20 MG DAILY 02/15 1000 AC 02/16 PO 0954 Oxycodone HCl 5 MG Q6P PRN 02/14 2015 AC PO Oxycodone/ 2 TAB Q6P PRN 02/14 2015 AC Acetaminophen PO Potassium Chloride 20 MEQ DAILY 02/16 1440 AC 02/16 PO 1524 Prednisone 50 MG DAILY 02/16 1000 AC 02/16 PO 0954 Sodium Chloride 2 SPRAY BID 02/15 220 AC 02/16 NAVYA 2118 Vital Signs & I&O Last 24 Hrs of Vitals and I&O: Vital Signs Date Time Temp Pulse Resp B/P B/P Pulse O2 O2 Flow FiO2 Mean Ox Delivery Rate 02/17 0400 97 Nasal 55% Cannula 02/17 0243 131/55 02/17 0208 97 Nasal 55% Cannula 02/17 0000 97.3 66 26 102/48 96 Nasal 60% Cannula 02/17 0000 97 Nasal 60% Cannula 02/16 2153 97 Nasal 60% Cannula 02/16 2000 96 Nasal 60% Cannula 02/16 1927 96 Nasal 60% Cannula 02/16 1619 94 Nasal 60% Cannula 02/16 1600 97.7 74 26 110/60 94 Nasal 60% Cannula 02/16 1600 95 Nasal 60% Cannula 02/16 1524 70 115/80 02/16 1401 74 117/50 02/16 1225 92 Nasal 60% Cannula 02/16 1200 94 Nasal 60% Cannula 02/16 1130 124/53 Intake & Output 02/17 1600 02/17 0800 02/17 0000 Intake Total 596 714 Output Total 1375 2200 Balance -779 -1486 Intake, IV 196 194 Intake, Oral 400 520 Number 1 Bowel Movements Output, Urine 1375 2200 Patient 126 lb Weight Weight Bed scale Measurement Method Laboratory Tests 02/17 02/16 0435 1905 Chemistry Sodium (137 - 145 mmol/L) 131 L 129 L Potassium (3.5 - 5.1 mmol/L) 4.3 4.8 Chloride (98 - 107 mmol/L) 89 L 91 L Carbon Dioxide (22 - 30 mmol/L) 30 28 Anion Gap (5 - 16) 11 10 BUN (9 - 20 mg/dL) 41 H 40 H Creatinine (0.7 - 1.2 mg/dL) 1.2 1.2 Estimated GFR (>60 ml/min) 58 L 58 L Glucose (65 - 99 mg/dL) 136 H 166 H Calcium (8.4 - 10.2 mg/dL) 8.2 L 8.1 L Phosphorus (2.5 - 4.5 mg/dL) 4.1 2.6 Magnesium (1.6 - 2.3 mg/dL) 2.5 H 2.4 H Total Bilirubin (0.2 - 1.3 mg/dL) 0.6 0.5 AST (17 - 59 U/L) 47 74 H ALT (21 - 72 U/L) 103 H 109 H Albumin (3.5 - 5.0 g/dL) 2.9 L 2.8 L Hematology CBC w Diff NO MAN DIFF REQ WBC (4.8 - 10.8 /CUMM) 9.4 RBC (4.70 - 6.10 /CUMM) 4.70 Hgb (14.0 - 18.0 G/DL) 11.6 L Hct (42 - 52 %) 35.8 L MCV (80.0 - 94.0 FL) 76.3 L MCH (27.0 - 31.0 PG) 24.6 L RDW (11.5 - 14.5 %) 16.5 H Plt Count (130 - 400 /CUMM) 334 MPV (7.4 - 10.4 FL) 7.7 Gran % (42.2 - 75.2 %) 89.3 H Lymphocytes % (20.5 - 51.1 %) 4.0 L Monocytes % (1.7 - 9.3 %) 6.7 Eosinophils % (0 - 5 %) 0 Basophils % (0.0 - 2.0 %) 0 L Absolute Granulocytes (1.4 - 6.5 /CUMM) 8.4 H Absolute Lymphocytes (1.2 - 3.4 /CUMM) 0.4 L Absolute Monocytes (0.10 - 0.60 /CUMM) 0.6 Absolute Eosinophils (0.0 - 0.7 /CUMM) 0 Absolute Basophils (0.0 - 0.2 /CUMM) 0 PUBS MCHC (33.0 - 37.0 G/DL) 32.2 L 02/16 0505 Chemistry Sodium (137 - 145 mmol/L) 132 L Potassium (3.5 - 5.1 mmol/L) 4.2 Chloride (98 - 107 mmol/L) 98 Carbon Dioxide (22 - 30 mmol/L) 26 Anion Gap (5 - 16) 9 BUN (9 - 20 mg/dL) 39 H Creatinine (0.7 - 1.2 mg/dL) 1.0 Estimated GFR (>60 ml/min) > 60 Glucose (65 - 99 mg/dL) 141 H Calcium (8.4 - 10.2 mg/dL) 7.9 L Phosphorus (2.5 - 4.5 mg/dL) 3.6 Magnesium (1.6 - 2.3 mg/dL) 2.4 H Total Bilirubin (0.2 - 1.3 mg/dL) 0.4 AST (17 - 59 U/L) 41 ALT (21 - 72 U/L) 76 H Albumin (3.5 - 5.0 g/dL) 2.4 L Hematology CBC w Diff NO MAN DIFF REQ WBC (4.8 - 10.8 /CUMM) 10.9 H RBC (4.70 - 6.10 /CUMM) 4.39 L Hgb (14.0 - 18.0 G/DL) 10.9 L Hct (42 - 52 %) 33.1 L MCV (80.0 - 94.0 FL) 75.5 L MCH (27.0 - 31.0 PG) 24.9 L RDW (11.5 - 14.5 %) 15.8 H Plt Count (130 - 400 /CUMM) 283 MPV (7.4 - 10.4 FL) 7.8 Gran % (42.2 - 75.2 %) 90.7 H Lymphocytes % (20.5 - 51.1 %) 2.9 L Monocytes % (1.7 - 9.3 %) 6.2 Eosinophils % (0 - 5 %) 0.2 Basophils % (0.0 - 2.0 %) 0 L Absolute Granulocytes (1.4 - 6.5 /CUMM) 9.9 H Absolute Lymphocytes (1.2 - 3.4 /CUMM) 0.3 L Absolute Monocytes (0.10 - 0.60 /CUMM) 0.7 H Absolute Eosinophils (0.0 - 0.7 /CUMM) 0 Absolute Basophils (0.0 - 0.2 /CUMM) 0 PUBS MCHC (33.0 - 37.0 G/DL) 33.0 Microbiology Date/Time Procedure - Status Source Growth 02/15 2050 Legionella Antigen - COMP URINE ROUT 02/15 2050 Streptococcus pneumoniae Antigen (M - COMP URINE ROUT 02/14 2230 Surveillance Culture - COMP UPPER RESP 02/14 2230 Surveillance Culture - COMP GI 02/14 2126 Urine Culture - CAN URINE ROUT Cancelled: DUPLICATE ORDER 02/14 2126 Respiratory Culture - CAN LOWER RESP Cancelled: SPECIMEN NOT RECEIVED IN LABORATORY 02/14 2126 Gram Stain - CAN LOWER RESP Cancelled: SPECIMEN NOT RECEIVED IN LABORATORY 02/14 2125 Blood Culture - CAN BLOOD Cancelled: Cancelled via OE: Per MD Decision 02/14 2125 Blood Culture - CAN BLOOD Cancelled: Cancelled via OE: Per MD Decision 02/14 2122 Urine Culture - COMP URINE ROUT 02/14 1330 Blood Culture - RES BLOOD 02/14 132 Blood Culture - RES BLOOD Impression/Plan Impression/Plan Impression/Plan: Physical Exam General Appearance: well developed/nourished, alert, awake, anxious, thin Head: atraumatic, normal appearance Eyes: Bilateral: normal appearance, PERRL, EOMI. Ears, Nose, Throat: normal pharynx, normal ENT inspection Neck: normal inspection, supple, full range of motion, no midline tenderness Respiratory: chest non-tender, decreased breath sounds, mild accessory muscle use, crackles, wheezing, respiratory distress Cardiovascular: regular rate/rhythm, normal peripheral pulses, norml femoral pulses equa Peripheral Pulses: 4+ carotid (R), 4+ carotid (L) Gastrointestinal: normal bowel sounds, soft, non-tender, no organomegaly Extremities: normal inspection, normal capillary refill, normal range of motion, no edema Neurologic/Psych: no motor/sensory deficits, awake, alert, oriented x 3, mail order clerk II- XII nml as tested Skin: intact, normal color, warm/dry Lymphatic: no anterior cervical deandre IMPRESSION This is an unfortunate 81-year-old gentleman with history of severe cardiomyopathy, paroxysmal atrial fibrillation on amiodarone and anticoagulation , previous history of coronary artery disease with CABG, cardiomyopathy with low ejection fraction, moderate mitral insufficiency with mild to moderate tricuspid insufficiency, Recently diagnosed agg malignant mesothelioma (bx done from his abd wall rectus sheath), chronic left pleural effusion now has * Severe hypoxemic respiratory failure which appears to be combination of factors which include aggressive malignant mesothelioma with bilateral pleural effusion, thick pleural rind in the right side, bilateral airspace disease suggestive of either fluid overload or drug-induced lung disease with advancing mesothelioma. Patient may be in mild congestive heart failure aswell, HIs blood pressure is low with low ejection fraction. * Worsening performance status in the recent past with poor appetite related to malignant mesothelioma and severe cardiomyopathy ( recent bx at [facility] c/w malignant mesothelioma * Chronic left pneumothorax which is slowly increasing in size is also contributing to shortness of breath * Severe lung disease with emphysema with significant pleural blebs, significant bronchiectasis within the anterior medial aspect of the right upper lobe with rounded atelectasis and chronic pleural parenchymal scarring with previous mucous plugging and chronic lung disease, now with bilateral infiltrates * Significant valvular heart disease with mitral regurgitation and tricuspid regurgitation * History of Severe cardiomyopathy with low ejection fraction with valvular heart disease with low flow state with low blood pressure with ef of 25 * Paroxysmal atrial fibrillation now appears to be in sinus rhythm with left bundle branch block * Chronic kidney disease * 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 * Cont high flow oxygen * Change abx to doxy only * Po prednisone 50 mg daily * Albuterol and ipratropium nebulizer therapy around the clock prn * D/w Dr Hartman, will dc amiodarone and Start Multaq (Dose per Dr Hartman) * Keep his O2 sat 92-94% * Cont lasix drip and dobutamine for 24 hrs and dc dobutamine if he has any arrythmias * Continue allopurinol and proton pump inhibitor * Continue his eloquis * Maynard catheter to continue. * Vitamin B12 2000 units by mouth daily * No therapy is necessary for his pneumothorax. 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 * Overall prognosis poor Multiple treatment options were discussed with the patient initially, including transferred to the [facility] versus transferred to a tertiary care facility. However at this time the patient wishes to continue his rx at [facility] and he wants maximum conservative therapy. He does not wish any life- support. He does not wish noninvasive ventilation, or dialysis or mechanical ventilation or Vasopressors. He is agreeable to vasoactive agents like dobutamine. He does have rapidly advancing malignancy, cardiomyopathy and severe lung disease. I did review some of his records from the [facility] and his prognosis appears to be extremely grim and we will honor the patient's wishes. We will make him DNR/DNI with conservative care only If he were to get worse then patient wishes to be made Comfort Care. Family meeting held Patient is critically ill total time 36 mins
--- NOTE | 2017-02-17 09:08 | RADIOLOGY REPORT ---
EXAMINATION: XR PORTABLE CHEST CLINICAL INFORMATION: On Lasix drip. Status post diuresis. Presumptive diagnosis of cardiogenic pulmonary edema. COMPARISON: 02/14/2017 TECHNIQUE: Portable frontal view of the chest was obtained. FINDINGS: Sternal wires, CABG markers, EKG leads, and a dual-lead pacemaker overlies the chest and are unchanged from prior. Cardiac and mediastinal contours are unchanged. No mediastinal shift. Pulmonary vasculature is indistinct. Moderate-sized left pneumothorax appears slightly improved as compared to prior allowing for differences in technique. There is persistent interstitial edema and mild alveolar edema, though both are improved as compared to prior. Trace right pleural effusion may remain. No significant left effusion. No new consolidation. Chronic changes of a right rotator cuff tear again noted. Bones are osteopenic with degenerative disc disease in the thoracic spine. IMPRESSION: 1. Slight improvement of the left pneumothorax 2. Mild pulmonary interstitial and alveolar edema, improved as compared to prior.
--- NOTE | 2017-02-17 11:55 | PN- Cardiology ---
Subjective Subjective: Clinically, the patient appears to be doing about the same. Respiratory status slightly better. Cardiac status stable. No evidence of any recurrent arrhythmias. Objective Vital Signs and I&Os Vital Signs Date Time Temp Pulse Resp B/P B/P Pulse O2 O2 Flow FiO2 Mean Ox Delivery Rate 02/17 0911 76 24 113/57 02/17 0800 97 Nasal 55% Cannula 02/17 0800 97.0 68 22 120/70 97 Nasal 55% Cannula 02/17 0400 97 Nasal 55% Cannula 02/17 0243 131/55 02/17 0208 97 Nasal 55% Cannula 02/17 0000 97.3 66 26 102/48 96 Nasal 60% Cannula 02/17 0000 97 Nasal 60% Cannula 02/16 2153 97 Nasal 60% Cannula 02/17 2000 96 Nasal 60% Cannula 02/16 1927 96 Nasal 60% Cannula 02/16 1619 94 Nasal 60% Cannula 02/16 1600 97.7 74 26 110/60 94 Nasal 60% Cannula 02/16 1600 95 Nasal 60% Cannula 02/16 1524 70 115/80 02/16 1401 74 117/50 02/16 1225 92 Nasal 60% Cannula 02/16 1200 94 Nasal 60% Cannula Intake & Output 02/17 1600 02/17 0800 02/17 0000 02/16 1600 02/16 0800 02/16 0000 Intake Total 596 714 688.5 340 672 Output Total 1375 2200 550 700 580 Balance -779 -1486 138.5 -360 92 Intake, IV 196 194 168.5 140 112 Intake, Oral 400 520 520 200 560 Number 1 0 0 0 Bowel Movements Output, Urine 1375 2200 550 700 580 Patient 126 lb 128 lb Weight Weight Bed scale Bed scale Measurement Method Current Medications: Current Medications Sig/Evonne Start time Last Medication Dose Route Stop Time Status Admin Acetaminophen 325 MG Q6P PRN 02/14 2015 AC PO Albuterol Sulfate 3 ML TID PRN 02/15 1345 AC INH Allopurinol 200 MG DAILY 02/15 1000 AC 02/17 PO 0910 Amiodarone HCl 200 MG DAILY 02/16 1238 DC 02/17 PO 0911 Apixaban 5 MG BID 02/14 2200 AC 02/17 PO 0910 Aspirin Buffered 81 MG DAILY 02/15 1000 AC 02/17 PO 0910 Cyanocobalamin 2,000 MCG DAILY 02/15 1000 AC 02/17 PO 0910 Dobutamine HCl 250 MG Q14H 02/15 0945 AC 02/17 Dextrose/Water 250 ML IV 0243 Doxycycline Hyclate 100 MG BID 02/16 1000 AC 02/17 PO 02/22 220 0910 Dronedarone 400 MG BID 02/17 2200 AC PO Furosemide 100 MG Q10H 02/16 2000 AC 02/17 Sodium Chloride 100 ML IV 0908 Furosemide 40 MG ONCE ONE 02/16 1400 DC 02/16 IV PUSH 02/16 1401 1401 Furosemide 40 MG .STK-MED ONE 02/16 1357 DC IV 02/16 1358 Furosemide 100 MG Q20H 02/16 1000 DC 02/16 Sodium Chloride 100 ML IV 02/17 2000 102 Insulin Aspart 0 TIDAC 02/15 0800 AC SC Ipratropium [place] 2.5 ML TID PRN 02/15 1345 AC INH Omeprazole 20 MG DAILY 02/15 1000 AC 02/17 PO 0910 Oxycodone HCl 5 MG Q6P PRN 02/14 2015 AC PO Oxycodone/ 2 TAB Q6P PRN 02/14 2015 AC Acetaminophen PO Potassium Chloride 20 MEQ DAILY 02/16 1440 AC 02/17 PO 0910 Prednisone 50 MG DAILY 02/16 1000 AC 02/17 PO 0910 Sodium Chloride 2 SPRAY BID 02/15 220 AC 02/17 NAVYA 0911 Results Last 48 Hrs of Labs/Mics: Laboratory Tests 02/17/17 0435: Anion Gap 11, Estimated GFR 58 L, Glucose 136 H, Calcium 8.2 L, Phosphorus 4.1, Magnesium 2.5 H, Total Bilirubin 0.6, AST 47, ALT 103 H, Albumin 2.9 L, CBC w Diff NO MAN DIFF REQ, RBC 4.70, MCV 76.3 L, MCH 24.6 L, RDW 16.5 H, MPV 7.7, Gran % 89.3 H, Lymphocytes % 4.0 L, Monocytes % 6.7, Eosinophils % 0, Basophils % 0 L, Absolute Granulocytes 8.4 H, Absolute Lymphocytes 0.4 L, Absolute Monocytes 0.6, Absolute Eosinophils 0, Absolute Basophils 0, PUBS MCHC 32.2 L 02/16/17 1905: Anion Gap 10, Estimated GFR 58 L, Glucose 166 H, Calcium 8.1 L, Phosphorus 2.6, Magnesium 2.4 H, Total Bilirubin 0.5, AST 74 H, ALT 109 H, Albumin 2.8 L 02/16/17 0505: Anion Gap 9, Estimated GFR > 60, Glucose 141 H, Calcium 7.9 L, Phosphorus 3.6, Magnesium 2.4 H, Total Bilirubin 0.4, AST 41, ALT 76 H, Albumin 2.4 L, CBC w Diff NO MAN DIFF REQ, RBC 4.39 L, MCV 75.5 L, MCH 24.9 L, RDW 15.8 H, MPV 7.8, Gran % 90.7 H, Lymphocytes % 2.9 L, Monocytes % 6.2, Eosinophils % 0.2, Basophils % 0 L, Absolute Granulocytes 9.9 H, Absolute Lymphocytes 0.3 L, Absolute Monocytes 0.7 H, Absolute Eosinophils 0, Absolute Basophils 0, PUBS MCHC 33.0 Microbiology 02/15 2050 URINE ROUT: Legionella Antigen - COMP 02/15 2050 URINE ROUT: Streptococcus pneumoniae Antigen (M - COMP Assessment/Plan Assessment/Plan Assessment: 1. Worsening respiratory distress / hypoxemic respiratory failure - likely multifactorial as noted above 2. History of atrial flutter 3. Recent PPM placement 4. Mesothelioma 5. History of CAD / CABG 6. Cardiomyopathy; ischemic vs tachycardiac mediated 7. Worsening left PTX Recommendations: -The patient appears to be improving slowly. Continue as per the pulmonary service. -The patient's echocardiogram continues to show depressed left ventricular systolic function despite the fact that he has been in sinus rhythm. In view of his past history, this is somewhat concerning. -With respect to his antiarrhythmic agents, if Pulmonary strongly feels that the amiodarone should be discontinued, then Multaq 400 bid, though not as effective, would be a reasonable alternative Continue telemetry? Yes
[2017-02-18] VITALS: BP 122/56
--- NOTE | 2017-02-18 03:18 | NUR ---
avss.a/ox3.follow commands.horton with +cms.lung sounds diminished and on high flow nc @40% with sats >95%. no c'o cp or resp distress. dobutamine and lasix gtt cont via piv site.ifeoma po well. macias patent with good uo. plan of care reviewed with pt and he verbalized understanding.
[2017-02-18 05:01] LABS: ABSOLUTE BASOPHIL COUNT 0 /CUMM (0.0-0.2); ABSOLUTE EOSINOPHIL COUNT 0 /CUMM (0.0-0.7); ABSOLUTE GRANULOCYTE CT 8.2 /CUMM (1.4-6.5); ABSOLUTE LYMPH COUNT 0.6 /CUMM (1.2-3.4); ABSOLUTE MONOCYTE COUNT 0.4 /CUMM (0.10-0.60); BASOPHIL % 0.1 % (0.0-2.0); EOSINOPHIL % 0.2 % (0-5); GRANULOCYTE % 89.5 % (42.2-75.2); HEMATOCRIT 36.8 % (42-52); MEAN CORPUSCULAR HGB CONC 32.9 G/DL (33.0-37.0); MEAN CORPUSCULAR VOLUME 75.8 FL (80.0-94.0); PLATELET COUNT 274 /CUMM (130-400); RBC DISTRIBUTION WIDTH 16.1 % (11.5-14.5); RED BLOOD CELL CT 4.86 /CUMM (4.70-6.10); WHITE BLOOD CELL COUNT 9.1 /CUMM (4.8-10.8)
--- NOTE | 2017-02-18 06:19 | PN- Resident CRCU ---
Subjective HPI/CRCU Issues: Mr. Merrill was seen and examined this morning. He is resting comfortably in bed. He endorses no complaints overnight and states that he was able to get some rest. Patient is currently alert and oriented 3. He continues to be on supplemental oxygen via high flow. Rate 30.9. He reports no cardiac complaints and endorses no rhythm abnormalities. Denies any fever, chills, nausea, vomiting. 24 Hour Events: air sampling and monitoring: No overnight events. Vital signs last 24 hours: T 97.0-97.9 HR 64-84, RR 62-78, BP 135-107/69-54 O2 92-98% on HFNC reduced to 30.9% FiO2. Total intake last 24 hours: 1670 cc Total output last 24 hours: 3085 cc Objective Vital Signs & I&O Last 8 Hrs of Vitals and I&O: Vital signs last 24 hours: T 97.0-97.9 HR 64-84, RR 62-78, BP 135-107/69-54 O2 92-98% on HFNC reduced to 30.9% FiO2. Exam General Appearance: well developed/nourished, no apparent distress, alert, awake Head: atraumatic Ears, Nose, Throat: normal pharynx, normal ENT inspection Neck: normal inspection Respiratory: normal breath sounds, crackles (Left Sided) Cardiovascular: regular rate/rhythm, systolic murmur Gastrointestinal: normal bowel sounds, soft, non-tender, Epigastric Sclerosis Extremities: normal inspection, no edema Cranial Nerves: normal hearing, normal speech Current Medications: Current Medications Sig/Evonne Start time Last Medication Dose Route Stop Time Status Admin Acetaminophen 325 MG Q6P PRN 02/14 2015 AC PO Albuterol Sulfate 3 ML TID PRN 02/15 1345 AC INH Allopurinol 200 MG DAILY 02/15 1000 AC 02/17 PO 0910 Amiodarone HCl 200 MG DAILY 02/16 1238 DC 02/17 PO 0911 Apixaban 5 MG BID 02/14 2200 AC 02/17 PO 220 Aspirin Buffered 81 MG DAILY 02/15 1000 AC 02/17 PO 0910 Cyanocobalamin 2,000 MCG DAILY 02/15 1000 AC 02/17 PO 0910 Dobutamine HCl 250 MG Q14H 02/15 0945 AC 02/18 Dextrose/Water 250 ML IV 02/18 1100 0810 Doxycycline Hyclate 100 MG BID 02/16 1000 AC 02/17 PO 02/22 2202202 Dronedarone 400 MG BID 02/17 2200 AC 02/17 PO 220 Furosemide 100 MG Q10H 02/16 2000 AC 02/18 Sodium Chloride 100 ML IV 02/18 1100 0329 Insulin Aspart 0 TIDAC 02/15 0800 AC SC Ipratropium [place] 2.5 ML TID PRN 02/15 1345 AC INH Omeprazole 20 MG DAILY 02/15 1000 AC 02/17 PO 0910 Oxycodone HCl 5 MG Q6P PRN 02/14 2015 AC PO Oxycodone/ 2 TAB Q6P PRN 02/14 2015 AC Acetaminophen PO Potassium Chloride 20 MEQ DAILY 02/16 1440 AC 02/17 PO 02/18 1100 0910 Prednisone 50 MG DAILY 02/16 1000 AC 02/17 PO 09 Sodium Chloride 2 SPRAY BID 02/15 2200 AC 02/17 NAVYA 2203 Impression/Plan Impression/Problem List Impression: Mr. Merrill is an 81 year old male with PMH malignant mesothelioma , chronic left pneumothorax, severe emphysema, severe cardiomyopathy with low ejection fraction, recent PPM implantation 8 days ago at the [facility], paroxysmal atrial fibrillation on amiodarone and anticoagulation with eliquis, CAD s/p CABG, mild mitral insufficiency, mild-moderate tricuspid insufficiency, gout and HTN who presented to [facility] on 02/14/17 with chief complaint of shortness of breath, non-productive cough and decreased exercise tolerance for three days. In the ED: Vital signs showed T 96.8, HR 117, RR 28, BP 104/64 and O2 sat 63% on room air. He was put on 100% nonrebreather with improvement of saturations to 96% Labs were significant for WBC 11 with no bands, H&H 13.9/43.2, Na 133, K 4.6, BUN/cre 24/1.1, Glu 207, TBili 1.4, AST 37, ALT 85, alk phos 140, trop 0.01, proBNP 2430, INR 3.12. CXR was performed and showed moderate left pneumothorax increased in size from 06/16/16. Bilateral airspace opacities suggestive of new infiltrates. New pacer electrodes in RA and RV. Patient is admitted to the ICU and the following is the management: 1. Acute on chronic hypoxic respiratory failure, IMPROVING * Likely 2/2 combination of bilateral pleural effusions, bilateral airspace disease, malignant mesothelioma, possible fluid overload and possible amiodarone induced lung toxicity * Continue O2 supplementation with HFNC, no further escalation to CPAP/BiPAP/ intubation if respiratory status deteriorates as patient is DNR/DNI * FiO2 requirements slowly decreasing and AM CXR shows slight decrease in size of PTX * Continue diuresis with lasix drip, till evening of 02/18/2017 * Continue PO doxycycline for a total of 7 days * Continue albuterol and atrovent/TRCs * Continue prednisone 50 mg PO daily * While on steroids, continue NSS (coverage to start with FSG >250) * Continue conservative tx of PTX 2. Hypotension, IMPROVING * Likely cardiac related in the setting of cardiomyopathy with reduced EF * Continue dobutamine drip at 5 mcg to maintain an adequate MAP, continue lasix drip can be continued at 7 mg/hr, Both can be discontinue 02/18/2017. Start lasix * D/C dobutamine drip tomorrow or earlier if patient is noted to have arrhythmias * Echocardiogram shows LVEF 25%, global hypokinesia, pacemaker wires in R heart chamber 20 mg Q6 from 02/19/2017. * Continue macias for strict Is/Os, daily weights * Continue to hold lisinopril while hypotensive 3. History of atrial fibrillation * Continue eliquis 5 mg PO BID * Continuous telemetry monitoring for now * Discontinue amiodarone and continue multaq 400 mg PO BID * Patient will need to be monitored on telemetry after downgraded from ICU. 4. Cardiomyopathy with reduced EF * Strict Is/Os/Daily weights * Cardio consult appreciated, continue to follow up recommendations * Continuous telemetry monitoring * Lasix drip for fluid overload which is improving pulmonary status 5. CAD s/p CABG * Continue ASA 81 mg PO daily * Continue to hold statin in setting of slight transaminitis 6. CKD * Monitor renal function * Avoid nephrotoxins 7. History of gout * Continue allopurinol 200 mg PO daily DNR/DNI Heart Healthy Diet DVTP: Eliquis Mild to severe pain pathway Problem List: 1. Pneumothorax on left 2. Pneumonia 3. Congestive heart failure 4. Ischemic cardiomyopathy 5. Transaminitis 6. Atrial flutter 7. Gout Pain Ratin Tomorrow's Labs & Rationales: CBC ICU Bundle Plan DVT/Prophylaxis: pharmacological (Eliquis)
[2017-02-18 08:00] VITALS: BP 114/58
--- NOTE | 2017-02-18 10:03 | PN- CRCU ---
Subjective HPI/Critical Care Issues: Mr. Merrill was seen and examined this morning. He is resting comfortably in bed. He endorses no complaints overnight and states that he was able to get some rest. Patient is currently alert and oriented 3. He continues to be on supplemental oxygen via high flow. Rate 30.9. He reports no cardiac complaints and endorses no rhythm abnormalities. Denies any fever, chills, nausea, vomiting. 24 Hour Events: court monitor: No overnight events. Vital signs last 24 hours: T 97.0-97.9 HR 64-84, RR 62-78, BP 135-107/69-54 O2 92-98% on HFNC reduced to 30.9% FiO2. Total intake last 24 hours: 1670 cc Total output last 24 hours: 3085 cc Objective Current Medications: Current Medications Sig/Evonne Start time Last Medication Dose Route Stop Time Status Admin Acetaminophen 325 MG Q6P PRN 02/14 2015 AC PO Albuterol Sulfate 3 ML TID PRN 02/15 1345 AC INH Allopurinol 200 MG DAILY 02/15 1000 AC 02/18 PO 0916 Amiodarone HCl 200 MG DAILY 02/16 1238 DC 02/17 PO 0911 Apixaban 5 MG BID 02/14 2200 AC 02/18 PO 0917 Aspirin Buffered 81 MG DAILY 02/15 1000 AC 02/18 PO 0917 Cyanocobalamin 2,000 MCG DAILY 02/15 1000 AC 02/18 PO 0916 Dobutamine HCl 250 MG Q14H 02/15 0945 AC 02/18 Dextrose/Water 250 ML IV 02/18 1100 0810 Doxycycline Hyclate 100 MG BID 02/16 1000 AC 02/18 PO 02/22 2201 0917 Dronedarone 400 MG BID 02/17 2200 AC 02/18 PO 0916 Furosemide 100 MG Q10H 02/16 2000 AC 02/18 Sodium Chloride 100 ML IV 02/18 1100 0329 Insulin Aspart 0 TIDAC 02/15 0800 AC SC Ipratropium [place] 2.5 ML TID PRN 02/15 1345 AC INH Omeprazole 20 MG DAILY 02/15 1000 AC 02/18 PO 0916 Oxycodone HCl 5 MG Q6P PRN 02/14 2015 AC PO Oxycodone/ 2 TAB Q6P PRN 02/14 2015 AC Acetaminophen PO Potassium Chloride 20 MEQ DAILY 02/16 1440 AC 02/18 PO 02/18 1100 0916 Prednisone 50 MG DAILY 02/16 1000 AC 02/18 PO 0917 Sodium Chloride 2 SPRAY BID 02/15 2200 AC 02/18 NAVYA 0918 Laboratory Tests 02/18 02/17 0430 0435 Chemistry Sodium (137 - 145 mmol/L) 130 L 131 L Potassium (3.5 - 5.1 mmol/L) 4.2 4.3 Chloride (98 - 107 mmol/L) 88 L 89 L Carbon Dioxide (22 - 30 mmol/L) 32 H 30 Anion Gap (5 - 16) 10 11 BUN (9 - 20 mg/dL) 44 H 41 H Creatinine (0.7 - 1.2 mg/dL) 1.0 1.2 Estimated GFR (>60 ml/min) > 60 58 L Glucose (65 - 99 mg/dL) 123 H 136 H Calcium (8.4 - 10.2 mg/dL) 8.2 L 8.2 L Phosphorus (2.5 - 4.5 mg/dL) 3.8 4.1 Magnesium (1.6 - 2.3 mg/dL) 2.5 H 2.5 H Total Bilirubin (0.2 - 1.3 mg/dL) 0.7 0.6 AST (17 - 59 U/L) 40 47 ALT (21 - 72 U/L) 111 H 103 H Albumin (3.5 - 5.0 g/dL) 2.9 L 2.9 L Hematology CBC w Diff NO MAN DIFF REQ NO MAN DIFF REQ WBC (4.8 - 10.8 /CUMM) 9.1 9.4 RBC (4.70 - 6.10 /CUMM) 4.86 4.70 Hgb (14.0 - 18.0 G/DL) 12.1 L 11.6 L Hct (42 - 52 %) 36.8 L 35.8 L MCV (80.0 - 94.0 FL) 75.8 L 76.3 L MCH (27.0 - 31.0 PG) 25.0 L 24.6 L RDW (11.5 - 14.5 %) 16.1 H 16.5 H Plt Count (130 - 400 /CUMM) 274 334 MPV (7.4 - 10.4 FL) 8.0 7.7 Gran % (42.2 - 75.2 %) 89.5 H 89.3 H Lymphocytes % (20.5 - 51.1 %) 6.1 L 4.0 L Monocytes % (1.7 - 9.3 %) 4.1 6.7 Eosinophils % (0 - 5 %) 0.2 0 Basophils % (0.0 - 2.0 %) 0.1 0 L Absolute Granulocytes (1.4 - 6.5 /CUMM) 8.2 H 8.4 H Absolute Lymphocytes (1.2 - 3.4 /CUMM) 0.6 L 0.4 L Absolute Monocytes (0.10 - 0.60 /CUMM) 0.4 0.6 Absolute Eosinophils (0.0 - 0.7 /CUMM) 0 0 Absolute Basophils (0.0 - 0.2 /CUMM) 0 0 PUBS MCHC (33.0 - 37.0 G/DL) 32.9 L 32.2 L 02/16 1905 Chemistry Sodium (137 - 145 mmol/L) 129 L Potassium (3.5 - 5.1 mmol/L) 4.8 Chloride (98 - 107 mmol/L) 91 L Carbon Dioxide (22 - 30 mmol/L) 28 Anion Gap (5 - 16) 10 BUN (9 - 20 mg/dL) 40 H Creatinine (0.7 - 1.2 mg/dL) 1.2 Estimated GFR (>60 ml/min) 58 L Glucose (65 - 99 mg/dL) 166 H Calcium (8.4 - 10.2 mg/dL) 8.1 L Phosphorus (2.5 - 4.5 mg/dL) 2.6 Magnesium (1.6 - 2.3 mg/dL) 2.4 H Total Bilirubin (0.2 - 1.3 mg/dL) 0.5 AST (17 - 59 U/L) 74 H ALT (21 - 72 U/L) 109 H Albumin (3.5 - 5.0 g/dL) 2.8 L Microbiology Date/Time Procedure - Status Source Growth 02/15 2050 Legionella Antigen - COMP URINE ROUT 02/15 2050 Streptococcus pneumoniae Antigen (M - COMP URINE ROUT Vital Signs & I&O Last 24 Hrs of Vitals and I&O: Vital Signs Date Time Temp Pulse Resp B/P B/P Pulse O2 O2 Flow FiO2 Mean Ox Delivery Rate 02/18 0800 95 Nasal 40% Cannula 02/18 0800 96.9 67 24 114/58 95 Nasal 40% Cannula 02/18 0455 95 Nasal 40% Cannula 02/18 0046 96 Nasal 40% Cannula 02/18 0000 97.9 64 24 122/56 95 02/18 0000 95 Nasal 40% Cannula 02/17 2203 68 20 114/68 02/17 2030 97 Nasal 40% Cannula 02/17 2000 95 Nasal 40% Cannula 02/17 1600 97 Nasal 55% Cannula 02/17 1300 98 Nasal 55% Cannula Intake & Output 02/18 1600 02/18 0800 02/18 0000 Intake Total 317 557 Output Total 1075 1010 Balance -758 -453 Intake, IV 197 197 Intake, Oral 120 360 Output, Urine 1075 1010 Impression/Plan Impression/Plan Impression/Plan: Physical Exam General Appearance: well developed/nourished, alert, awake, anxious, thin Head: atraumatic, normal appearance Eyes: Bilateral: normal appearance, PERRL, EOMI. Ears, Nose, Throat: normal pharynx, normal ENT inspection Neck: normal inspection, supple, full range of motion, no midline tenderness Respiratory: chest non-tender, decreased breath sounds, mild accessory muscle use, crackles, wheezing, respiratory distress Cardiovascular: regular rate/rhythm, normal peripheral pulses, norml femoral pulses equa Peripheral Pulses: 4+ carotid (R), 4+ carotid (L) Gastrointestinal: normal bowel sounds, soft, non-tender, no organomegaly Extremities: normal inspection, normal capillary refill, normal range of motion, no edema Neurologic/Psych: no motor/sensory deficits, awake, alert, oriented x 3, lead programmer analyst II- XII nml as tested Skin: intact, normal color, warm/dry Lymphatic: no anterior cervical deandre IMPRESSION This is an unfortunate 81-year-old gentleman with history of severe cardiomyopathy, paroxysmal atrial fibrillation on amiodarone and anticoagulation , previous history of coronary artery disease with CABG, cardiomyopathy with low ejection fraction, moderate mitral insufficiency with mild to moderate tricuspid insufficiency, Recently diagnosed agg malignant mesothelioma (bx done from his abd wall rectus sheath), chronic left pleural effusion now has * Severe hypoxemic respiratory failure which appears to be combination of factors which include aggressive malignant mesothelioma with bilateral pleural effusion, thick pleural rind in the right side, bilateral airspace disease suggestive of either fluid overload or drug-induced lung disease with advancing mesothelioma. Patient may be in mild congestive heart failure aswell, HIs blood pressure is low with low ejection fraction. * Worsening performance status in the recent past with poor appetite related to malignant mesothelioma and severe cardiomyopathy ( recent bx at [facility] c/w malignant mesothelioma * Chronic left pneumothorax which is slowly increasing in size is also contributing to shortness of breath * Severe lung disease with emphysema with significant pleural blebs, significant bronchiectasis within the anterior medial aspect of the right upper lobe with rounded atelectasis and chronic pleural parenchymal scarring with previous mucous plugging and chronic lung disease, now with bilateral infiltrates rule out Drug induced lung disease * Significant valvular heart disease with mitral regurgitation and tricuspid regurgitation * History of Severe cardiomyopathy with low ejection fraction with valvular heart disease with low flow state with low blood pressure with ef of 25 * Paroxysmal atrial fibrillation now appears to be in sinus rhythm with left bundle branch block * Chronic kidney disease * 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 * Cont high flow oxygen, transition to the nasal cannula if able today * OOB to chair * Seven day of doxy * Po prednisone 50 mg daily * Albuterol and ipratropium nebulizer therapy around the clock prn * Multaq (Dose per Dr Hartman) * Keep his O2 sat 92-94% * Cont lasix drip and dobutamine till this pm and then dc and start lasix 20 q 6 from am * Continue allopurinol and proton pump inhibitor * Continue his eloquis * Maynard catheter to continue. * Vitamin B12 2000 units by mouth daily * No therapy is necessary for his pneumothorax. 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 * Overall prognosis poor Multiple treatment options were discussed with the patient initially, including transferred to the [facility] versus transferred to a tertiary care facility. However at this time the patient wishes to continue his rx at [facility] and he wants maximum conservative therapy. He does not wish any life- support. He does not wish noninvasive ventilation, or dialysis or mechanical ventilation or Vasopressors. He is agreeable to vasoactive agents like dobutamine. He does have rapidly advancing malignancy, cardiomyopathy and severe lung disease. I did review some of his records from the [facility] and his prognosis appears to be extremely grim and we will honor the patient's wishes. We will make him DNR/DNI with conservative care only If he were to get worse then patient wishes to be made [facility]. Family meeting held Patient is critically ill total time 36 mins
--- NOTE | 2017-02-18 12:53 | PN- Cardiology ---
Subjective Subjective: Clinically about the same. Cardiac status stable. No evidence of atrial tachyarrhythmias. Objective Vital Signs and I&Os Vital Signs Date Time Temp Pulse Resp B/P B/P Pulse O2 O2 Flow FiO2 Mean Ox Delivery Rate 02/18 08 95 Nasal 40% Cannula 02/18 0800 96.9 67 24 114/58 95 Nasal 40% Cannula 02/18 0455 95 Nasal 40% Cannula 02/18 0046 96 Nasal 40% Cannula 02/18 0000 97.9 64 24 122/56 95 02/18 0000 95 Nasal 40% Cannula 02/17 2203 68 20 114/68 02/17 2030 97 Nasal 40% Cannula 02/17 2000 95 Nasal 40% Cannula 02/17 1600 97 Nasal 55% Cannula 02/17 1300 98 Nasal 55% Cannula Intake & Output 02/18 0802/18 0000 02/17 1600 02/17 0800 02/17 0000 Intake Total 317 557 796 596 714 Output Total 1075 1010 1000 1375 2200 Balance -758 -453 -204 -779 -1486 Intake, IV 197 197 196 196 194 Intake, Oral 120 360 600 400 520 Number 1 Bowel Movements Output, Urine 1075 1010 1000 1375 2200 Patient 126 lb Weight Weight Bed scale Measurement Method Physical Exam: General Appearance: This ill appearing WM; well developed, alert, awake, conversant, remains on high flow supplemental oxygen Head: normal Ears, Nose, Throat: normal Neck: normal inspection, supple, JVP ill defined; carotids normal Respiratory: chest non-tender, decreased breath sounds, crackles, wheezing, Cardiovascular: regular rate/rhythm, no audible murmurs Peripheral Pulses: normal bilaterally Gastrointestinal: normal bowel sounds, soft, non-tender, no organomegaly Extremities: normal inspection, normal capillary refill, normal range of motion, no edema Neurologic/Psych: non focal Current Medications: Current Medications Sig/Evonne Start time Last Medication Dose Route Stop Time Status Admin Acetaminophen 325 MG Q6P PRN 02/14 2015 AC PO Albuterol Sulfate 3 ML TID PRN 02/15 1345 AC INH Allopurinol 200 MG DAILY 02/15 1000 AC 02/18 PO 0916 Apixaban 5 MG BID 02/140 AC 02/18 PO 09 Aspirin Buffered 81 MG DAILY 02/15 1000 AC 02/18 PO 09 Cyanocobalamin 2,000 MCG DAILY 02/15 1000 AC 02/18 PO 0916 Dobutamine HCl 250 MG Q14H 02/15 0945 AC 02/18 Dextrose/Water 250 ML IV 02/18 1800 0810 Doxycycline Hyclate 100 MG BID 02/16 1000 AC 02/18 PO 02/22 2201 0917 Dronedarone 400 MG BID 02/17 2200 AC 02/18 PO 0916 Furosemide 20 MG Q6 02/19 06 AC PO Furosemide 100 MG Q10H 02/16 2000 AC 02/18 Sodium Chloride 100 ML IV 02/18 1800 0329 Insulin Aspart 0 TIDAC 02/15 08 AC SC Ipratropium [place] 2.5 ML TID PRN 02/15 1345 AC INH Omeprazole 20 MG DAILY 02/15 1000 AC 02/18 PO 0916 Oxycodone HCl 5 MG Q6P PRN 02/14 2015 AC PO Oxycodone/ 2 TAB Q6P PRN 02/14 2015 AC Acetaminophen PO Potassium Chloride 20 MEQ DAILY 02/16 1440 DC 02/18 PO 02/18 1100 0916 Prednisone 50 MG DAILY 02/16 1000 AC 02/18 PO 0917 Sodium Chloride 2 SPRAY BID 02/15 2200 AC 02/18 NAVYA 0918 Results Last 48 Hrs of Labs/Mics: Laboratory Tests 02/18/17429: Anion Gap 10, Estimated GFR > 60, Glucose 123 H, Calcium 8.2 L, Phosphorus 3.8 , Magnesium 2.5 H, Total Bilirubin 0.7, AST 40, ALT 111 H, Albumin 2.9 L, CBC w Diff NO MAN DIFF REQ, RBC 4.86, MCV 75.8 L, MCH 25.0 L, RDW 16.1 H, MPV 8.0 , Gran % 89.5 H, Lymphocytes % 6.1 L, Monocytes % 4.1, Eosinophils % 0.2, Basophils % 0.1, Absolute Granulocytes 8.2 H, Absolute Lymphocytes 0.6 L, Absolute Monocytes 0.4, Absolute Eosinophils 0, Absolute Basophils 0, PUBS MCHC 32.9 L 02/17/17 0435: Anion Gap 11, Estimated GFR 58 L, Glucose 136 H, Calcium 8.2 L, Phosphorus 4.1, Magnesium 2.5 H, Total Bilirubin 0.6, AST 47, ALT 103 H, Albumin 2.9 L, CBC w Diff NO MAN DIFF REQ, RBC 4.70, MCV 76.3 L, MCH 24.6 L, RDW 16.5 H, MPV 7.7, Gran % 89.3 H, Lymphocytes % 4.0 L, Monocytes % 6.7, Eosinophils % 0, Basophils % 0 L, Absolute Granulocytes 8.4 H, Absolute Lymphocytes 0.4 L, Absolute Monocytes 0.6, Absolute Eosinophils 0, Absolute Basophils 0, PUBS MCHC 32.2 L 02/16/175: Anion Gap 10, Estimated GFR 58 L, Glucose 166 H, Calcium 8.1 L, Phosphorus 2.6, Magnesium 2.4 H, Total Bilirubin 0.5, AST 74 H, ALT 109 H, Albumin 2.8 L Assessment/Plan Assessment/Plan Assessment: 1. Worsening respiratory distress / hypoxemic respiratory failure - likely multifactorial as noted above 2. History of atrial flutter 3. Recent PPM placement 4. Mesothelioma 5. History of CAD / CABG 6. Cardiomyopathy; ischemic vs tachycardiac mediated 7. Worsening left PTX Recommendations: -The patient appears to be improving slowly. Continue as per the pulmonary service. The patient appears to be euvolemic at the present time. -The patient's echocardiogram continues to show depressed left ventricular systolic function despite the fact that he has been in sinus rhythm. In view of his past history, this is somewhat concerning. -Started on Multaq 400 mg twice a day yesterday. Rhythm remained stable at the moment. -Discontinuation of dobutamine and IV Lasix as per Dr. Ledesma -When the patient leaves the ICU, he should be monitored on telemetry. Continue telemetry? Yes
[2017-02-18 16:00] VITALS: BP 120/50
[2017-02-18 18:55] VITALS: BP 96/48
--- NOTE | 2017-02-18 20:13 | Transfer of Care Summary ---
Hospital Course Course Hospital Course: Mr. Merrill is an 81 year old male with PMH malignant mesothelioma , chronic left pneumothorax, severe emphysema, severe cardiomyopathy with low ejection fraction, recent PPM implantation 8 days prior to admission at the [facility], paroxysmal atrial fibrillation on amiodarone and anticoagulation with eliquis, CAD s/p CABG, mild mitral insufficiency, mild-moderate tricuspid insufficiency, gout and HTN who presented to [facility] on 02/14[facility]17 with chief complaint of shortness of breath, non-productive cough and decreased exercise tolerance for three days. In the ED: Vital signs showed T 96.8, HR 117, RR 28, BP 104/64 and O2 sat 63% on room air. He was put on 100% nonrebreather with improvement of saturations to 96% Labs were significant for WBC 11 with no bands, H&H 13.9/43.2, Na 133, K 4.6, BUN/cre 24/1.1, Glu 207, TBili 1.4, AST 37, ALT 85, alk phos 140, trop 0.01, proBNP 2430, INR 3.12. CXR was performed and showed moderate left pneumothorax increased in size from 06/16/16. Bilateral airspace opacities suggestive of new infiltrates. New pacer electrodes in RA and RV. Patient was admitted to the ICU and the following was the management: 1. Acute on chronic hypoxic respiratory failure: Likely 2/2 combination of bilateral pleural effusions, bilateral airspace disease, malignant mesothelioma, possible fluid overload and possible amiodarone induced lung toxicity. Patient's wishes were for no CPAP/BiPAP/intubation/central line. Conservative treatment was done for his chronic PTX. He was brought to the ICU with high flow nasal cannula and initiated on IV ceftriaxone and doxycycline. IV solumedrol was also started from admission. Amiodarone (a home medication since 01/19) was held due to concern for amiodarone induced lung toxicity. Patient continued to require about 60% FiO2 so IV dobutamine was started through a peripheral IV so that IV lasix drip could diurese noted pulmonary edema as seen on CXR. Respiratory status improved with the lasix drip and FiO2 was able to be titrated down. IV solumedrol was switched to PO prednisone. Patient was thus stable for transfer to the floor. Continue to follow pulmonary recommendations from Dr. Callie MD and continue to provide supplemental O2 as needed to maintain an O2 sat >88%. Titrate PO prednisone per pulm recommendations. 2. Hypotension: Borderline low BP on admission likely 2/2 HFrEF/cardiomyopathy. His home lisinopril was held from admission. Patient was started on a dobutamine drip with improvement in blood pressure/mean arterial pressure. An echocardiogram was obtained and showed EF 20% global hypokinesia, pacemaker wires in R heart chamber. Dobutamine was continued until 02/18/17. Lasix drip was discontinued at that time and PO lasix should be resumed form 02/19/17. 3. History of atrial fibrillation: Patient was continued on eliquis 5 mg PO BID and kept on the monitor tech continuously. Cardiology consult was obtained. Records obtained from the [place] noted that patient was started on amiodarone on 01/19. This was resumed initially but after persistent concerns of amiodarone side effects, it was discontinued and patient was started on multaq 400 mg PO BID. [id number] to follow cardiology recommendations. 4. Cardiomyopathy with reduced EF: Patient was placed on strict Is/Os/daily weights. He had his oral lasix held and he was initiated on a lasix drip for fluid overload resulting in hypoxic respiratory failure. IV lasix was transitioned to PO lasix on 02/19/17. 5. CAD s/p CABG: [facility]'s home aspirin 81 mg PO daily was continued from admission. Home statin was held due to transaminitis. Continue to trend LFTs and resume statin once normalized. 6. CKD: NO acute worsening of renal function appreciated during ICU stay. Nephrotoxins were avoided. Renal function was trended daily as patient was being aggressively diuresed. Continue to monitor daily. 7. History of gout: Patient was continued on home allopurinol 200 mg PO daily. 8. Code status: DNR/DNI 9. DVTP: Eliquis 10. Diet: Heart Healthy Diet Complications: None. Significant Procedures: Chest/Abdomen/Pelvis CT: IMPRESSION: 1. Left apical pneumothorax, increased in size since the prior examination dated 06/16/2016. Significant interval increase in bilateral bullous emphysema, most prominent within the right lung base. 2. New diffuse bilateral ground-glass opacities, which could represent fluid overload. An infectious process cannot be excluded. Bilateral fibrotic changes, increased since the prior examination. 3. Small right-sided pleural effusion. Redemonstration of bilateral pleural thickening. 4. Prominent sigmoid diverticulosis without adjacent inflammatory change to suggest acute diverticulitis. 5. Diffuse atherosclerotic calcifications throughout the abdominal aorta and its branch vessels. Focal abdominal aortic aneurysm just proximal to the bifurcation which measures up to 2.9 cm. Echo: CONCLUSIONS 1. This was a technically difficult and limited examination due to the patient's body habitus and clinical status. 2. Aortic sclerosis is present with minimal to mild aortic insufficiency. There is no significant valvular stenosis. 3. Mitral leaflet thickening is present with mild to moderate anular calcification and mild mitral insufficiency with mild to moderate left atrial enlargement. 4. There is no significant pericardial fluid present. 5. The left ventricular chamber is upper normal in size. There is global hypokinesia present which appears worse in the anteroseptal, apical and inferobasal segments. The ejection fraction is approximately 25%. 6. The right heart structures are grossly normal. Mild to moderate tricuspid insufficiency is present with minimal to mild pulmonic insufficiency and an estimated RV systolic pressure of 36 mmHg. 7. Pacemaker wires are present in the right heart chambers. 8. If clinically indicated, a MUGA scan might be useful in this patient. Assessment/Plan: See above (hospital course). Attending MD Review Statement Documenting Attending: CALLIE WALKER,ERI Pop
[2017-02-18 22:56] VITALS: BP 100/52
[2017-02-19 08:05] LABS: ABSOLUTE BASOPHIL COUNT 0 /CUMM (0.0-0.2); ABSOLUTE EOSINOPHIL COUNT 0.1 /CUMM (0.0-0.7); ABSOLUTE GRANULOCYTE CT 9.2 /CUMM (1.4-6.5); ABSOLUTE LYMPH COUNT 0.8 /CUMM (1.2-3.4); ABSOLUTE MONOCYTE COUNT 0.7 /CUMM (0.10-0.60); BASOPHIL % 0 % (0.0-2.0); EOSINOPHIL % 0.8 % (0-5); GRANULOCYTE % 85.7 % (42.2-75.2); HEMATOCRIT 38.1 % (42-52); MEAN CORPUSCULAR HGB 24.7 PG (27.0-31.0); MEAN CORPUSCULAR HGB CONC 32.9 G/DL (33.0-37.0); MEAN CORPUSCULAR VOLUME 75.1 FL (80.0-94.0); MEAN PLATELET VOLUME 7.8 FL (7.4-10.4); PLATELET COUNT 381 /CUMM (130-400); RBC DISTRIBUTION WIDTH 15.9 % (11.5-14.5); RED BLOOD CELL CT 5.07 /CUMM (4.70-6.10); WHITE BLOOD CELL COUNT 10.7 /CUMM (4.8-10.8)
--- NOTE | 2017-02-19 08:49 | PN- Housestaff ---
See Addendum Subjective Follow-up For: Acute on chronic hypoxic respiratory failure Hypotension Tele-Events Since Last Visit: SB/NSR, HR 53-73 BBB Subjective: Seen and examined this morning. Resting comfortably in bed with no compliants. Satting well on 4 liters of oxygen. Remains alert and oriented 3. Denies any chest discomfort, palpitations, lightheadedness, dizziness, abdominal pain, n/v/ c/d. No acute events reported overnight. Review of Systems Constitutional: Reports: see HPI. Objective Last 24 Hrs of Vital Signs/I&O Vital Signs Date Time Temp Pulse Resp B/P B/P Pulse O2 O2 Flow FiO2 Mean Ox Delivery Rate 02/19 0959 93 Nasal 4.0L Cannula 02/19 0945 71 112/50 89 Nasal 3.5L Cannula 02/19 0943 71 112/50 02/19 0905 97.5 68 20 94/40 92 Nasal 4.0L Cannula 02/19 0827 92 Nasal 4.0L Cannula 02/19 0800 92 Nasal 4.0L Cannula 02/19 0000 Nasal 4.0L Cannula 02/18 2256 97.9 66 20 100/52 97 Nasal 5.0L Cannula / 2150 68 94/50 06/02 1855 97.8 66 20 96/48 98 Nasal 5.0L Cannula / 1600 97 Nasal 4.0L Cannula / 1600 97.8 68 30 120/50 97 Nasal 4.0L Cannula / 1343 98 Nasal 40% Cannula Intake & Output 02/19 1600 06/03 0800 02/19 0000 Intake Total 120 240 Output Total 500 650 Balance -380 -410 Intake, Oral 120 240 Number 0 Bowel Movements Output, Urine 500 650 Patient 52.163 kg Weight Weight Chair scale Measurement Method Physical Exam General Appearance: Alert, Oriented X3, Cooperative, No Acute Distress Other Physical Findings: Head: atraumatic Ears, Nose, Throat: normal pharynx, normal ENT inspection Neck: normal inspection Respiratory: normal breath sounds, crackles (Left Sided) Cardiovascular: regular rate/rhythm, systolic murmur Gastrointestinal: normal bowel sounds, soft, non-tender, Epigastric Sclerosis Extremities: normal inspection, no edema Cranial Nerves: normal hearing, normal speech Current Medications: Current Medications Sig/Evonne Start time Last Medication Dose Route Stop Time Status Admin Acetaminophen 325 MG Q6P PRN 02/14 2015 AC PO Albuterol Sulfate 3 ML TID PRN 02/15 1345 AC INH Allopurinol 200 MG DAILY 02/15 1000 AC 02/19 PO 0944 Apixaban 5 MG BID 02/14 2200 AC 02/19 PO 0943 Aspirin Buffered 81 MG DAILY 02/15 1000 AC 02/19 PO 0943 Cyanocobalamin 1,000 MCG DAILY 02/19 1000 AC PO Cyanocobalamin 2,000 MCG DAILY 02/15 1000 DC 02/19 PO 0944 Dobutamine HCl 250 MG Q14H 02/15 0945 DC 02/18 Dextrose/Water 250 ML IV 02/18 1800 0810 Doxycycline Hyclate 100 MG BID 02/16 1000 AC 02/19 PO 02/22 2201 0944 Dronedarone 400 MG BID 02/17 2200 AC 02/19 PO 0943 Furosemide 20 MG Q6 02/19 0600 AC 02/19 PO 0555 Furosemide 100 MG Q10H 02/16 2000 DC 02/18 Sodium Chloride 100 ML IV 02/18 1800 0329 Insulin Aspart 0 TIDAC 02/15 0800 AC SC Ipratropium [place] 2.5 ML TID PRN 02/15 1345 AC INH Omeprazole 20 MG DAILY 02/15 1000 AC 02/19 PO 0944 Oxycodone HCl 5 MG Q6P PRN 02/14 2015 AC PO Oxycodone/ 2 TAB Q6P PRN 02/14 2015 AC Acetaminophen PO Patient Medication 1 ED .STK-MED ONE 02/18 1434 PA Teaching ED 02/18 1435 Prednisone 50 MG DAILY 02/16 1000 AC 02/19 PO 0944 Sodium Chloride 2 SPRAY BID 02/15 2200 AC 02/19 NAVYA 0947 Last 24 Hrs of Lab/Tang Results Last 24 Hrs of Labs/Mics: Laboratory Tests 02/19/17 0653: Anion Gap 8, Estimated GFR > 60, Glucose 86, Calcium 8.4, Phosphorus 3.5, Magnesium 2.6 H, Total Bilirubin 0.6, AST 35, ALT 102 H, Albumin 2.9 L, CBC w Diff MAN DIFF ORDERED, RBC 5.07, MCV 75.1 L, MCH 24.7 L, RDW 15.9 H, MPV 7.8, Gran % 85.7 H, Lymphocytes % 7.1 L, Monocytes % 6.4, Eosinophils % 0.8, Basophils % 0 L, Absolute Granulocytes 9.2 H, Segmented Neutrophils 82 H, Absolute Lymphocytes 0.8 L, Lymphocytes 10 L, Monocytes 4, Absolute Monocytes 0.7 H, Eosinophils 2, Absolute Eosinophils 0.1, Absolute Basophils 0, Myelocytes 2 H, Platelet Estimate ADEQUATE, Hypochromic-Microcytic 1+, Poikilocytosis 2+, Anisocytosis 1+, Microcytic Cells 1+, Ovalocytes 1+, PUBS MCHC 32.9 L Assessment/Plan Assessment: Mr. Merrill is an 81 year old male with PMH malignant mesothelioma , chronic left pneumothorax, severe emphysema, severe cardiomyopathy with low ejection fraction, recent PPM implantation 8 days ago at the [facility], paroxysmal atrial fibrillation on amiodarone and anticoagulation with eliquis, CAD s/p CABG, mild mitral insufficiency, mild-moderate tricuspid insufficiency, gout and HTN who presented to [facility] on 02/14/17 with chief complaint of shortness of breath, non-productive cough and decreased exercise tolerance for three days. 1. Acute on chronic hypoxic respiratory failure, IMPROVING Likely 2/2 combination of bilateral pleural effusions, bilateral airspace disease, malignant mesothelioma, possible fluid overload and possible amiodarone induced lung toxicity * Continue O2 supplementation as needed (wean off tiral failed this morning as he desatted to high 80s on 3.5 liters. Continue 4 litesr for now.) * No further escalation to CPAP/BiPAP/intubation if respiratory status deteriorates per patient's wish * Change Lasix to 40 mg daily * Continue PO doxycycline to complete a total of 7 days * Continue albuterol neb PRN only * Discontinue atrovent/TRCs * Start Spiriva QD * Continue prednisone taper, currently 50 mg PO daily (PO prednisone 50 mg QD x 2 days -> 40mg QD x five days -> 20mg QD x 5 days -> 10mg QD x 5 days -> 10mg Q48H x 10 days) * While on steroids, continue NSS (coverage to start with FSG >250) * Continue conservative tx of PTX 2. Hypotension, IMPROVING Likely cardiac related in the setting of cardiomyopathy with reduced EF * Lasix as above * Echocardiogram shows LVEF 25%, global hypokinesia, pacemaker wires in R heart chamber 20 mg Q6 from 02/19/2017. * Continue macias for strict Is/Os, daily weights * Continue to hold lisinopril while hypotensive 3. History of atrial fibrillation * Continue eliquis 5 mg PO BID * Continuous telemetry monitoring for now * Discontinue amiodarone and continue multaq 400 mg PO BID * Patient will need to be monitored on telemetry after downgraded from ICU. 4. Cardiomyopathy with reduced EF * Strict Is/Os/Daily weights * Cardio consult appreciated, continue to follow up recommendations * Continuous telemetry monitoring * Lasix drip for fluid overload which is improving pulmonary status 5. CAD s/p CABG * Continue ASA 81 mg PO daily * Continue to hold statin in setting of slight transaminitis 6. CKD * Monitor renal function * Avoid nephrotoxins 7. History of gout * Continue allopurinol 200 mg PO daily DNR/DNI Heart Healthy Diet DVTP: Eliquis Mild to severe pain pathway Problem List: 1. Transaminitis 2. Palpitations 3. Pneumonia 4. Pneumothorax on left 5. Ischemic cardiomyopathy 6. Congestive heart failure 7. Atrial flutter 8. Gout 9. Full code status Pain Ratin Pain Location: 0 Pain Goal: Remain pain free Pain Plan: Mild path Tomorrow's Labs & Rationales: CBC BEP
[2017-02-19 09:05] VITALS: BP 94/40
[2017-02-19 09:45] VITALS: BP 112/50
--- NOTE | 2017-02-19 12:00 | PN- Cardiology ---
Subjective Subjective: Resting comfortably in his chair. Minimal dyspnea. No chest pain or palpitations. Objective Vital Signs and I&Os Vital Signs Date Time Temp Pulse Resp B/P B/P Pulse O2 O2 Flow FiO2 Mean Ox Delivery Rate 02/19 0959 93 Nasal 4.0L Cannula 02/19 0945 71 112/50 89 Nasal 3.5L Cannula 02/19 0943 71 112/50 02/19 0905 97.5 68 20 94/40 92 Nasal 4.0L Cannula 02/19 0827 92 Nasal 4.0L Cannula 02/19 0800 92 Nasal 4.0L Cannula 02/19 0000 Nasal 4.0L Cannula 02/18 2256 97.9 66 20 100/52 97 Nasal 5.0L Cannula 02/18 2150 68 94/50 02/18 1855 97.8 66 20 96/48 98 Nasal 5.0L Cannula 02/18 1600 97 Nasal 4.0L Cannula 02/18 1600 97.8 68 30 120/50 97 Nasal 4.0L Cannula 02/18 1343 98 Nasal 40% Cannula Intake & Output 02/19 1600 02/19 0800 02/19 0000 02/18 1600 02/18 0800 02/18 0000 Intake Total 120 240 689.6 317 557 Output Total 500 677 923 1867 1010 Balance -380 -410 39.6 -758 -453 Intake, IV 189.6 197 197 Intake, Oral 120 240 500 120 360 Number 0 1 Bowel Movements Output, Urine 500 126 750 1287 1010 Patient 115 lb Weight Weight Chair scale Measurement Method Physical Exam: General: no apparent distress. Alert. On nasal cannula. Eyes: No obvious scleral icterus. HEENT: No jugular venous distention or abnormal jugular venous pulsations. Cardiovascular: Normal intensity S1/S2. Pacemaker noted Respiratory: Trace wheezes Abdomen: Soft, nontender with no guarding or rebound tenderness. Musculoskeletal: No clubbing or cyanosis noted, no edema Skin: Warm Current Medications: Current Medications Sig/Evonne Start time Last Medication Dose Route Stop Time Status Admin Acetaminophen 325 MG Q6P PRN 02/14 2015 AC PO Albuterol Sulfate 3 ML TID PRN 02/15 1345 AC INH Allopurinol 200 MG DAILY 02/15 1000 AC 02/19 PO 0944 Apixaban 5 MG BID 02/14 2200 AC 02/19 PO 0943 Aspirin Buffered 81 MG DAILY 02/15 1000 AC 02/19 PO 0943 Cyanocobalamin 1,000 MCG DAILY 02/19 1000 AC PO Cyanocobalamin 2,000 MCG DAILY 02/15 1000 DC 02/19 PO 0944 Dobutamine HCl 250 MG Q14H 02/15 0945 DC 02/18 Dextrose/Water 250 ML IV 02/18 1800 0810 Doxycycline Hyclate 100 MG BID 02/16 1000 AC 02/19 PO 02/22 2201 0944 Dronedarone 400 MG BID 02/17 2200 AC 02/19 PO 0943 Furosemide 20 MG Q6 02/19 0600 AC 02/19 PO 0555 Furosemide 100 MG Q10H 02/16 2000 DC 02/18 Sodium Chloride 100 ML IV 02/18 1800 0329 Insulin Aspart 0 TIDAC 02/15 08 AC SC Ipratropium [place] 2.5 ML TID PRN 02/15 1345 AC INH Omeprazole 20 MG DAILY 02/15 1000 AC 02/19 PO 0944 Oxycodone HCl 5 MG Q6P PRN 02/14 2015 AC PO Oxycodone/ 2 TAB Q6P PRN 02/14 2015 AC Acetaminophen PO Patient Medication 1 ED .STK-MED ONE 02/18 1434 [place] Teaching ED 02/18 1435 Prednisone 50 MG DAILY 02/16 1000 AC 02/19 PO 0944 Sodium Chloride 2 SPRAY BID 02/15 2200 AC 02/19 NAVYA 0947 Results Last 48 Hrs of Labs/Mics: Laboratory Tests 02/19/17 0653: Anion Gap 8, Estimated GFR > 60, Glucose 86, Calcium 8.4, Phosphorus 3.5, Magnesium 2.6 H, Total Bilirubin 0.6, AST 35, ALT 102 H, Albumin 2.9 L, CBC w Diff MAN DIFF ORDERED, RBC 5.07, MCV 75.1 L, MCH 24.7 L, RDW 15.9 H, MPV 7.8, Gran % 85.7 H, Lymphocytes % 7.1 L, Monocytes % 6.4, Eosinophils % 0.8, Basophils % 0 L, Absolute Granulocytes 9.2 H, Segmented Neutrophils 82 H, Absolute Lymphocytes 0.8 L, Lymphocytes 10 L, Monocytes 4, Absolute Monocytes 0.7 H, Eosinophils 2, Absolute Eosinophils 0.1, Absolute Basophils 0, Myelocytes 2 H, Platelet Estimate ADEQUATE, Hypochromic-Microcytic 1+, Poikilocytosis 2+, Anisocytosis 1+, Microcytic Cells 1+, Ovalocytes 1+, PUBS MCHC 32.9 L 02/18/17 0430: Anion Gap 10, Estimated GFR > 60, Glucose 123 H, Calcium 8.2 L, Phosphorus 3.8 , Magnesium 2.5 H, Total Bilirubin 0.7, AST 40, ALT 111 H, Albumin 2.9 L, CBC w Diff NO MAN DIFF REQ, RBC 4.86, MCV 75.8 L, MCH 25.0 L, RDW 16.1 H, MPV 8.0 , Gran % 89.5 H, Lymphocytes % 6.1 L, Monocytes % 4.1, Eosinophils % 0.2, Basophils % 0.1, Absolute Granulocytes 8.2 H, Absolute Lymphocytes 0.6 L, Absolute Monocytes 0.4, Absolute Eosinophils 0, Absolute Basophils 0, PUBS MCHC 32.9 L Recent Imaging Studies: Telemetry tracings were personally reviewed and shows sinus rhythm and sinus bradycardia with occasional pacing Assessment/Plan Assessment/Plan 1. Worsening respiratory distress / hypoxemic respiratory failure - likely multifactorial 2. History of atrial flutter 3. Recent PPM placement 4. Mesothelioma 5. History of CAD / CABG 6. Cardiomyopathy; ischemic vs tachycardiac mediated 7. Worsening left PTX Hemodynamically stable. Feels well with minimal dyspnea at this time. No chest pain. Remains in sinus rhythm and is currently euvolemic. If remains hemodynamically stable will plan to initiate anti-myopathics. Kt Luna MD [facility] Continue telemetry? Yes
[2017-02-19 12:16] VITALS: BP 118/50
--- NOTE | 2017-02-19 14:01 | PN- Pulmonary ---
Subjective HPI/Critical Care Issues: Resting comfortably in his chair. Minimal dyspnea. No chest pain or palpitations. Objective Current Medications: Current Medications Sig/Evonne Start time Last Medication Dose Route Stop Time Status Admin Acetaminophen 325 MG Q6P PRN 02/14 2015 AC PO Albuterol Sulfate 3 ML TID PRN 02/15 1345 AC INH Allopurinol 200 MG DAILY 02/15 1000 AC 02/19 PO 0944 Apixaban 5 MG BID 02/14 2200 AC 02/19 PO 0943 Aspirin Buffered 81 MG DAILY 02/15 1000 AC 02/19 PO 0943 Cyanocobalamin 1,000 MCG DAILY 02/19 1000 AC PO Cyanocobalamin 2,000 MCG DAILY 02/15 1000 DC 02/19 PO 0944 Dobutamine HCl 250 MG Q14H 02/15 0945 DC 02/18 Dextrose/Water 250 ML IV 02/18 1800 0810 Doxycycline Hyclate 100 MG BID 02/16 1000 AC 02/19 PO 02/22 2201 0944 Dronedarone 400 MG BID 02/17 2200 AC 02/19 PO 0943 Furosemide 20 MG Q6 02/19 0600 AC 02/19 PO 1218 Furosemide 100 MG Q10H 02/16 2000 DC 02/18 Sodium Chloride 100 ML IV 02/18 1800 0329 Insulin Aspart 0 TIDAC 02/15 0800 AC SC Ipratropium [place] 2.5 ML TID PRN 02/15 1345 AC INH Omeprazole 20 MG DAILY 02/15 1000 AC 02/19 PO 0944 Oxycodone HCl 5 MG Q6P PRN 02/14 2015 AC PO Oxycodone/ 2 TAB Q6P PRN 02/14 2015 AC Acetaminophen PO Patient Medication 1 ED .STK-MED ONE 02/18 1434 DC Teaching ED 02/18 1435 Prednisone 50 MG DAILY 02/16 1000 AC 02/19 PO 0944 Sodium Chloride 2 SPRAY BID 02/15 2200 AC 02/19 NAVYA 0947 Vital Signs & I&O Last 24 Hrs of Vitals and I&O: Vital Signs Date Time Temp Pulse Resp B/P B/P Pulse O2 O2 Flow FiO2 Mean Ox Delivery Rate 02/19 1216 73 118/50 02/19 0959 93 Nasal 4.0L Cannula 02/19 0945 71 112/50 89 Nasal 3.5L Cannula 02/19 0943 71 112/50 02/19 0905 97.5 68 20 94/40 92 Nasal 4.0L Cannula 02/19 0827 92 Nasal 4.0L Cannula 02/19 0800 92 Nasal 4.0L Cannula 02/19 0000 Nasal 4.0L Cannula 02/18 2256 97.9 66 20 100/52 97 Nasal 5.0L Cannula 02/18 2150 68 94/50 06 1855 97.8 66 20 96/48 98 Nasal 5.0L Cannula 02/18 1600 97 Nasal 4.0L Cannula 02/18 1600 97.8 68 30 120/50 97 Nasal 4.0L Cannula Intake & Output 02/19 1600 02/19 0800 02/19 0000 Intake Total 120 240 Output Total 500 650 Balance -380 -410 Intake, Oral 120 240 Number 0 Bowel Movements Output, Urine 500 650 Patient 115 lb Weight Weight Chair scale Measurement Method Impression/Plan Impression/Plan Impression/Plan: Physical Exam General Appearance: well developed/nourished, alert, awake, anxious, thin Head: atraumatic, normal appearance Eyes: Bilateral: normal appearance, PERRL, EOMI. Ears, Nose, Throat: normal pharynx, normal ENT inspection Neck: normal inspection, supple, full range of motion, no midline tenderness Respiratory: chest non-tender, decreased breath sounds, mild accessory muscle use, crackles, wheezing, respiratory distress Cardiovascular: regular rate/rhythm, normal peripheral pulses, norml femoral pulses equa Peripheral Pulses: 4+ carotid (R), 4+ carotid (L) Gastrointestinal: normal bowel sounds, soft, non-tender, no organomegaly Extremities: normal inspection, normal capillary refill, normal range of motion, no edema Neurologic/Psych: no motor/sensory deficits, awake, alert, oriented x 3, 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 Skin: intact, normal color, warm/dry Lymphatic: no anterior cervical deandre IMPRESSION This is an unfortunate 81-year-old gentleman with history of severe cardiomyopathy, paroxysmal atrial fibrillation on amiodarone and anticoagulation , previous history of coronary artery disease with CABG, cardiomyopathy with low ejection fraction, moderate mitral insufficiency with mild to moderate tricuspid insufficiency, Recently diagnosed agg malignant mesothelioma (bx done from his abd wall rectus sheath), chronic left pleural effusion now has * Resolving Severe hypoxemic respiratory failure which appears to be combination of factors which include aggressive malignant mesothelioma with bilateral pleural effusion, thick pleural rind in the right side, bilateral airspace disease suggestive of either fluid overload or drug-induced lung disease with advancing mesothelioma. Patient may be in mild congestive heart failure aswell, HIs blood pressure is low with low ejection fraction. * Worsening performance status in the recent past with poor appetite related to malignant mesothelioma and severe cardiomyopathy ( recent bx at [facility] c/w malignant mesothelioma * Chronic left pneumothorax which is slowly increasing in size is also contributing to shortness of breath * Severe lung disease with emphysema with significant pleural blebs, significant bronchiectasis within the anterior medial aspect of the right upper lobe with rounded atelectasis and chronic pleural parenchymal scarring with previous mucous plugging and chronic lung disease, now with bilateral infiltrates rule out Drug induced lung disease * Significant valvular heart disease with mitral regurgitation and tricuspid regurgitation * History of Severe cardiomyopathy with low ejection fraction with valvular heart disease with low flow state with low blood pressure with ef of 25 * Paroxysmal atrial fibrillation now appears to be in sinus rhythm with left bundle branch block * Chronic kidney disease * 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 * Cont oxygen and reduce to keep sat of 92 * Seven day of doxy total * Lasix 40 mg daily from am * Po prednisone 50 mg daily for two more days and then 40 qd for five days, 20 x 5 days 20 for five and 10 for five and 10 qod for 10 days * Albuterol only nebulizer therapy prn from now on * Start spiriva qd * Multaq (Dose per Dr Hartman) * Continue allopurinol and proton pump inhibitor * Continue his eloquis * Maynard catheter to be dcd * Vitamin B12 2000 units by mouth daily * No therapy is necessary for his pneumothorax. Patient has a chronic pneumothorax which is slowly increasing in size any has scarred and trapped lung and certainly this might create of bronchopleural fistula and hence we will treat this conservatively * Will see if he needs to go home on oxygen soon *
[2017-02-19 16:34] VITALS: BP 104/44
[2017-02-19 22:48] VITALS: BP 98/50
[2017-02-20 08:25] VITALS: BP 102/44
--- NOTE | 2017-02-20 10:40 | PN- Housestaff ---
Subjective Follow-up For: Acute on chronic hypoxic respiratory failure Hypotension Subjective: Seen and examined at bedside. He complains of some eythema on his sacral/ buttock area. Does not endorse any other acute including chest pain, palpitation , shortness of breath, fever, chills, nausea, vomiting, abdominal pain or dysuria. No acute overnight event reported by nursing staff Review of Systems Constitutional: Reports: no symptoms. Objective Last 24 Hrs of Vital Signs/I&O Vital Signs Date Time Temp Pulse Resp B/P B/P Pulse O2 O2 Flow FiO2 Mean Ox Delivery Rate 02/20 1646 95 Nasal 3.0L Cannula 02/20 1600 95 Nasal 3.0L Cannula 02/20 1530 97.3 61 16 106/60 94 Nasal 2.0L Cannula 02/20 0925 65 102/44 02/20 0825 97.7 58 20 102/44 95 Nasal Cannula 02/20 0800 91 Nasal 3.0L Cannula 02/20 0000 Nasal 3.0L Cannula 02/19 2248 97.8 67 20 98/50 94 Nasal 3.0L Cannula 02/19 2112 67 98/50 Intake & Output 02/20 1600 /04 0800 02/20 0000 Intake Total 600 150 560 Output Total 500 575 350 Balance 100 -425 210 Intake, Oral 600 150 560 Number 0 Bowel Movements Output, Urine 500 575 350 Patient 52.39 kg Weight Weight Chair scale Measurement Method Physical Exam General Appearance: Alert, Oriented X3, Cooperative Skin: mild eythematous area around the sacral area, intatc skin intergrity, non ulcerated Other Physical Findings: Other Physical Findings: Head: atraumatic Ears, Nose, Throat: normal pharynx, normal ENT inspection Neck: normal inspection Respiratory: normal breath sounds, crackles (Left Sided) Cardiovascular: regular rate/rhythm, systolic murmur Gastrointestinal: normal bowel sounds, soft, non-tender, Epigastric Sclerosis Extremities: normal inspection, no edema Cranial Nerves: normal hearing, normal speech Current Medications: Current Medications Sig/Evonne Start time Last Medication Dose Route Stop Time Status Admin Acetaminophen 325 MG Q6P PRN 02/14 2015 AC PO Albuterol Sulfate 3 ML TID PRN 02/15 1345 AC INH Allopurinol 200 MG DAILY 02/15 1000 AC 02/20 PO 09 Apixaban 5 MG BID 02/14 2200 AC 02/20 PO 0925 Aspirin Buffered 81 MG DAILY 02/15 1000 AC 02/20 PO 0925 Cyanocobalamin 1,000 MCG DAILY 02/19 1000 AC 02/20 PO 0926 Doxycycline Hyclate 100 MG BID 02/16 1000 AC 02/20 PO 02/22 2201 0926 Dronedarone 400 MG BID 02/17 2200 AC 02/20 PO 0925 Furosemide 40 MG DAILY 02/20 1000 AC 02/20 PO 0925 Insulin Aspart 0 TIDAC 02/15 0800 AC SC Omeprazole 20 MG DAILY 02/15 1000 AC 02/20 PO 0926 Oxycodone HCl 5 MG Q6P PRN 02/14 2015 AC PO Oxycodone/ 2 TAB Q6P PRN 02/14 2015 AC Acetaminophen PO Prednisone 10 MG Q48H 03/09 1000 AC PO 03/18 0959 Prednisone 10 MG DAILY 03/04 1000 AC PO 03/08 1001 Prednisone 20 MG DAILY 02/27 1000 AC PO 03/03 1001 Prednisone 40 MG DAILY 02/22 1000 AC PO 02/26 1001 Prednisone 50 MG DAILY 02/16 1000 AC 02/20 PO 02/21 2300 0925 Sodium Chloride 2 SPRAY BID 02/15 2200 AC 02/20 NAVYA 0925 Tiotropium [place] 1 PUF DAILY 02/19 1601 AC 02/20 INH 0926 Last 24 Hrs of Lab/Tang Results Last 24 Hrs of Labs/Mics: Laboratory Tests 02/20/17 0637: Anion Gap 5, Estimated GFR > 60, BUN/Creatinine Ratio 46.4 H, Magnesium 2.5 H Assessment/Plan Assessment: Mr. Merrill is an 81 year old male with PMH malignant mesothelioma , chronic left pneumothorax, severe emphysema, severe cardiomyopathy with low ejection fraction, recent PPM implantation 8 days ago at the [facility], paroxysmal atrial fibrillation on amiodarone and anticoagulation with eliquis, CAD s/p CABG, mild mitral insufficiency, mild-moderate tricuspid insufficiency, gout and HTN who presented to [facility] on 02/14[facility]17 with chief complaint of shortness of breath, non-productive cough and decreased exercise tolerance for three days. 1. Acute on chronic hypoxic respiratory failure, IMPROVING Likely 2/2 combination of bilateral pleural effusions, bilateral airspace disease, malignant mesothelioma, possible fluid overload and possible amiodarone induced lung toxicity * No further escalation to CPAP/BiPAP/intubation if respiratory status deteriorates per patient's wish * Change Lasix to 40 mg daily * Continue albuterol neb PRN only * Discontinue atrovent/TRCs * Start Spiriva QD * Continue prednisone taper, currently 50 mg PO daily (PO prednisone 50 mg QD x 2 days -> 40mg QD x five days -> 20mg QD x 5 days -> 10mg QD x 5 days -> 10mg Q48H x 10 days) * While on steroids, continue NSS (coverage to start with FSG >250) * Continue conservative tx of PTX 2. Hypotension, IMPROVING Likely cardiac related in the setting of cardiomyopathy with reduced EF * Lasix as above * Echocardiogram shows LVEF 25%, global hypokinesia, pacemaker wires in R heart chamber . * Continue macias for strict Is/Os, daily weights * Continue to hold lisinopril while hypotensive 3. History of atrial fibrillation * Continue eliquis 5 mg PO BID * Continuous telemetry monitoring for now * Discontinue amiodarone and continue multaq 400 mg PO BID * Patient will need to be monitored on telemetry after downgraded from ICU. 4. Cardiomyopathy with reduced EF * Strict Is/Os/Daily weights * Cardio consult appreciated, continue to follow up recommendations * Continuous telemetry monitoring * Lasix drip for fluid overload which is improving pulmonary status 5. CAD s/p CABG * Continue ASA 81 mg PO daily * Continue to hold statin in setting of slight transaminitis 6. CKD * Monitor renal function * Avoid nephrotoxins 7. History of gout * Continue allopurinol 200 mg PO daily 8. Sacral erythema Non ulcerated, with intact skin integrity. Will apply barrier cream and encourage reposition. DNR/DNI Heart Healthy Diet DVTP: Eliquis Mild to severe pain pathway Problem List: 1. Pneumonia 2. Transaminitis 3. Palpitations Pain Ratin Pain Location: none Pain Goal: Remain pain free Pain Plan: per pain pathway Tomorrow's Labs & Rationales: cbc bep
--- NOTE | 2017-02-20 12:48 | PN- Pulmonary ---
Subjective HPI/Critical Care Issues: Doing about the same Objective Current Medications: Current Medications Sig/Evonne Start time Last Medication Dose Route Stop Time Status Admin Acetaminophen 325 MG Q6P PRN 02/14 2015 AC PO Albuterol Sulfate 3 ML TID PRN 02/15 1345 AC INH Allopurinol 200 MG DAILY 02/15 1000 AC 02/20 PO 0926 Apixaban 5 MG BID 02/14 2200 AC 02/20 PO 0925 Aspirin Buffered 81 MG DAILY 02/15 1000 AC 02/20 PO 0925 Cyanocobalamin 1,000 MCG DAILY 02/19 1000 AC 02/20 PO 0926 Doxycycline Hyclate 100 MG BID 02/16 1000 AC 02/20 PO 02/22 2201 0926 Dronedarone 400 MG BID 02/17 220 AC 02/20 PO 0925 Furosemide 40 MG DAILY 02/20 1000 AC 02/20 PO 0925 Furosemide 20 MG Q6 02/19 0600 DC 02/19 PO 1218 Insulin Aspart 0 TIDAC 02/15 0800 AC SC Ipratropium [place] 2.5 ML TID PRN 02/15 1345 DC INH Omeprazole 20 MG DAILY 02/15 1000 AC 02/20 PO 0926 Oxycodone HCl 5 MG Q6P PRN 02/14 2015 AC PO Oxycodone/ 2 TAB Q6P PRN 02/14 2015 AC Acetaminophen PO Prednisone 10 MG Q48H 03/09 1000 AC PO 03/18 0959 Prednisone 10 MG DAILY 03/04 1000 AC PO 03/08 1001 Prednisone 20 MG DAILY 02/27 1000 AC PO 03/03 1001 Prednisone 40 MG DAILY 02/22 1000 AC PO 02/26 1001 Prednisone 50 MG DAILY 02/16 1000 AC 02/20 PO 02/21 2300 0925 Sodium Chloride 2 SPRAY BID 02/15 2200 AC 02/20 NAVYA 0925 Tiotropium [place] 1 PUF DAILY 02/19 1601 AC 02/20 INH 0926 Laboratory Tests 02/20 02/19 0637 0653 Chemistry Sodium (137 - 145 mmol/L) 131 L 132 L Potassium (3.5 - 5.1 mmol/L) 4.8 4.3 Chloride (98 - 107 mmol/L) 89 L 89 L Carbon Dioxide (22 - 30 mmol/L) 38 H 34 H Anion Gap (5 - 16) 5 8 BUN (9 - 20 mg/dL) 51 H 48 H Creatinine (0.7 - 1.2 mg/dL) 1.1 1.1 Estimated GFR (>60 ml/min) > 60 > 60 BUN/Creatinine Ratio (7 - 25 %) 46.4 H Glucose (65 - 99 mg/dL) 86 Calcium (8.4 - 10.2 mg/dL) 8.4 Phosphorus (2.5 - 4.5 mg/dL) 3.5 Magnesium (1.6 - 2.3 mg/dL) 2.5 H 2.6 H Total Bilirubin (0.2 - 1.3 mg/dL) 0.6 AST (17 - 59 U/L) 35 ALT (21 - 72 U/L) 102 H Albumin (3.5 - 5.0 g/dL) 2.9 L Hematology CBC w Diff MAN DIFF ORDERED WBC (4.8 - 10.8 /CUMM) 10.7 RBC (4.70 - 6.10 /CUMM) 5.07 Hgb (14.0 - 18.0 G/DL) 12.5 L Hct (42 - 52 %) 38.1 L MCV (80.0 - 94.0 FL) 75.1 L MCH (27.0 - 31.0 PG) 24.7 L RDW (11.5 - 14.5 %) 15.9 H Plt Count (130 - 400 /CUMM) 381 MPV (7.4 - 10.4 FL) 7.8 Gran % (42.2 - 75.2 %) 85.7 H Lymphocytes % (20.5 - 51.1 %) 7.1 L Monocytes % (1.7 - 9.3 %) 6.4 Eosinophils % (0 - 5 %) 0.8 Basophils % (0.0 - 2.0 %) 0 L Absolute Granulocytes (1.4 - 6.5 /CUMM) 9.2 H Segmented Neutrophils (42.2 - 75.2 %) 82 H Absolute Lymphocytes (1.2 - 3.4 /CUMM) 0.8 L Lymphocytes (20.5 - 51.1 %) 10 L Monocytes (1.7 - 9.3 %) 4 Absolute Monocytes (0.10 - 0.60 /CUMM) 0.7 H Eosinophils (0 - 5.0 %) 2 Absolute Eosinophils (0.0 - 0.7 /CUMM) 0.1 Absolute Basophils (0.0 - 0.2 /CUMM) 0 Myelocytes (0 - 0 %) 2 H Platelet Estimate (ADEQUATE) ADEQUATE Hypochromic-Microcytic 1+ Poikilocytosis 2+ Anisocytosis 1+ Microcytic Cells 1+ Ovalocytes 1+ PUBS MCHC (33.0 - 37.0 G/DL) 32.9 L Vital Signs & I&O Last 24 Hrs of Vitals and I&O: Vital Signs Date Time Temp Pulse Resp B/P B/P Pulse O2 O2 Flow FiO2 Mean Ox Delivery Rate 02/20 0925 65 102/44 / 0825 97.7 58 20 102/44 95 Nasal Cannula 02/20 0800 91 Nasal 3.0L Cannula 02/20 0000 Nasal 3.0L Cannula 02/19 2248 97.8 67 20 98/50 94 Nasal 3.0L Cannula 02/19 2112 67 98/50 / 1645 96 Nasal 4.0L Cannula 02/19 1634 97.6 64 20 104/44 97 Nasal 4.0L Cannula 02/19 1600 93 Nasal 4.0L Cannula Intake & Output 02/20 1600 02/20 0800 / 0000 Intake Total 150 560 Output Total 575 350 Balance -425 210 Intake, Oral 150 560 Number 0 Bowel Movements Output, Urine 575 350 Patient 116 lb Weight Weight Chair scale Measurement Method Impression/Plan Impression/Plan Impression/Plan: Physical Exam General Appearance: well developed/nourished, alert, awake, anxious, thin Head: atraumatic, normal appearance Eyes: Bilateral: normal appearance, PERRL, EOMI. Ears, Nose, Throat: normal pharynx, normal ENT inspection Neck: normal inspection, supple, full range of motion, no midline tenderness Respiratory: chest non-tender, decreased breath sounds, mild accessory muscle use, crackles, wheezing, respiratory distress Cardiovascular: regular rate/rhythm, normal peripheral pulses, norml femoral pulses equa Peripheral Pulses: 4+ carotid (R), 4+ carotid (L) Gastrointestinal: normal bowel sounds, soft, non-tender, no organomegaly Extremities: normal inspection, normal capillary refill, normal range of motion, no edema Neurologic/Psych: no motor/sensory deficits, awake, alert, oriented x 3, 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 Skin: intact, normal color, warm/dry Lymphatic: no anterior cervical deandre IMPRESSION This is an unfortunate 81-year-old gentleman with history of severe cardiomyopathy, paroxysmal atrial fibrillation on amiodarone and anticoagulation , previous history of coronary artery disease with CABG, cardiomyopathy with low ejection fraction, moderate mitral insufficiency with mild to moderate tricuspid insufficiency, Recently diagnosed agg malignant mesothelioma (bx done from his abd wall rectus sheath), chronic left pleural effusion now has * Resolving Severe hypoxemic respiratory failure which appears to be combination of factors which include aggressive malignant mesothelioma with bilateral pleural effusion, thick pleural rind in the right side, bilateral airspace disease suggestive of either fluid overload or drug-induced lung disease with advancing mesothelioma. Patient may be in mild congestive heart failure aswell, HIs blood pressure is low with low ejection fraction. * Worsening performance status in the recent past with poor appetite related to malignant mesothelioma and severe cardiomyopathy ( recent bx at [facility] c/w malignant mesothelioma * Chronic left pneumothorax which is slowly increasing in size is also contributing to shortness of breath * Severe lung disease with emphysema with significant pleural blebs, significant bronchiectasis within the anterior medial aspect of the right upper lobe with rounded atelectasis and chronic pleural parenchymal scarring with previous mucous plugging and chronic lung disease, now with bilateral infiltrates rule out Drug induced lung disease * Significant valvular heart disease with mitral regurgitation and tricuspid regurgitation * History of Severe cardiomyopathy with low ejection fraction with valvular heart disease with low flow state with low blood pressure with ef of 25 * Paroxysmal atrial fibrillation now appears to be in sinus rhythm with left bundle branch block * Chronic kidney disease * 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 * Cont oxygen and reduce to keep sat of 92 * Seven day of doxy total * Lasix 40 mg daily * Po prednisone 50 mg daily for one more days and then 40 qd for five days, 20 x 5 days 20 for five and 10 for five and 10 qod for 10 days * Albuterol only nebulizer therapy prn from now on * Spiriva qd * Multaq * Continue allopurinol and proton pump inhibitor * Continue his eloquis * Vitamin B12 2000 units by mouth daily * No therapy is necessary for his pneumothorax. 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
--- NOTE | 2017-02-20 13:27 | PN- Cardiology ---
Subjective Subjective: Resting comfortably on nasal cannula. Has not ambulated much but denies dyspnea at rest. Objective Vital Signs and I&Os Vital Signs Date Time Temp Pulse Resp B/P B/P Pulse O2 O2 Flow FiO2 Mean Ox Delivery Rate 02/20 0925 65 102/44 02/20 0825 97.7 58 20 102/44 95 Nasal Cannula 02/20 0800 91 Nasal 3.0L Cannula 02/20 0000 Nasal 3.0L Cannula 02/19 2248 97.8 67 20 98/50 94 Nasal 3.0L Cannula 02/19 2112 67 98/50 02/19 1645 96 Nasal 4.0L Cannula 02/19 1634 97.6 64 20 104/44 97 Nasal 4.0L Cannula 02/19 1600 93 Nasal 4.0L Cannula Intake & Output 02/20 1600 02/20 0800 02/20 0000 02/19 1600 02/19 0800 02/19 0000 Intake Total 150 560 600 120 240 Output Total 575 350 600 500 650 Balance -425 210 0 -380 -410 Intake, Oral 150 560 600 120 240 Number 0 0 Bowel Movements Output, Urine 575 350 600 500 650 Patient 116 lb 115 lb Weight Weight Chair scale Chair scale Measurement Method Physical Exam: General: no apparent distress. Alert. On nasal cannula. Eyes: No obvious scleral icterus. HEENT: No jugular venous distention or abnormal jugular venous pulsations. Cardiovascular: Normal intensity S1/S2. Pacemaker noted Respiratory: decreased air entry on the left Abdomen: Soft, nontender with no guarding or rebound tenderness. Musculoskeletal: No clubbing or cyanosis noted, no edema Skin: Warm Current Medications: Current Medications Sig/Evonne Start time Last Medication Dose Route Stop Time Status Admin Acetaminophen 325 MG Q6P PRN 02/14 2015 AC PO Albuterol Sulfate 3 ML TID PRN 02/15 1345 AC INH Allopurinol 200 MG DAILY 02/15 1000 AC 02/20 PO 09 Apixaban 5 MG BID 02/14 2200 AC 02/20 PO 09 Aspirin Buffered 81 MG DAILY 02/15 1000 AC 02/20 PO 09 Cyanocobalamin 1,000 MCG DAILY 02/19 1000 AC 02/20 PO 09 Doxycycline Hyclate 100 MG BID 02/16 1000 AC 02/20 PO 02/22 2201 0926 Dronedarone 400 MG BID 02/17 2200 AC 02/20 PO 0925 Furosemide 40 MG DAILY 02/20 1000 AC 02/20 PO 0925 Furosemide 20 MG Q6 02/19 0600 DC 02/19 PO 1218 Insulin Aspart 0 TIDAC 02/15 0800 AC SC Ipratropium [place] 2.5 ML TID PRN 02/15 1345 DC INH Omeprazole 20 MG DAILY 02/15 1000 AC 02/20 PO 0926 Oxycodone HCl 5 MG Q6P PRN 02/14 2015 AC PO Oxycodone/ 2 TAB Q6P PRN 02/14 2015 AC Acetaminophen PO Prednisone 10 MG Q48H 03/09 1000 AC PO 03/18 0959 Prednisone 10 MG DAILY 03/04 1000 AC PO 03/08 1001 Prednisone 20 MG DAILY 02/27 1000 AC PO 03/03 1001 Prednisone 40 MG DAILY 02/22 1000 AC PO 02/26 1001 Prednisone 50 MG DAILY 02/16 1000 AC 02/20 PO 02/21 2300 0925 Sodium Chloride 2 SPRAY BID 02/15 2200 AC 02/20 NAVYA 0925 Tiotropium [place] 1 PUF DAILY 02/19 1601 AC 02/20 INH 0926 Results Last 48 Hrs of Labs/Mics: Laboratory Tests 02/20/17 0637: Anion Gap 5, Estimated GFR > 60, BUN/Creatinine Ratio 46.4 H, Magnesium 2.5 H 02/19/17 0653: Anion Gap 8, Estimated GFR > 60, Glucose 86, Calcium 8.4, Phosphorus 3.5, Magnesium 2.6 H, Total Bilirubin 0.6, AST 35, ALT 102 H, Albumin 2.9 L, CBC w Diff MAN DIFF ORDERED, RBC 5.07, MCV 75.1 L, MCH 24.7 L, RDW 15.9 H, MPV 7.8, Gran % 85.7 H, Lymphocytes % 7.1 L, Monocytes % 6.4, Eosinophils % 0.8, Basophils % 0 L, Absolute Granulocytes 9.2 H, Segmented Neutrophils 82 H, Absolute Lymphocytes 0.8 L, Lymphocytes 10 L, Monocytes 4, Absolute Monocytes 0.7 H, Eosinophils 2, Absolute Eosinophils 0.1, Absolute Basophils 0, Myelocytes 2 H, Platelet Estimate ADEQUATE, Hypochromic-Microcytic 1+, Poikilocytosis 2+, Anisocytosis 1+, Microcytic Cells 1+, Ovalocytes 1+, PUBS MCHC 32.9 L Recent Imaging Studies: Telemetry tracings personally reviewed; shows SR/SB with occasional pacing Assessment/Plan Assessment/Plan 1. Worsening respiratory distress / hypoxemic respiratory failure - likely multifactorial 2. History of atrial flutter on AC 3. Recent PPM placement 4. Mesothelioma 5. History of CAD / CABG 6. Cardiomyopathy; ischemic vs tachycardiac mediated 7. Worsening left PTX Remains in SR on Multaq. No dyspnea at rest. Appears euvolemic on exam. No chest pain. Holding off on antimyopathics for now given borderline BP. Hg stable on anticoagulation. Kt Luna MD FACC Continue telemetry? Yes
--- NOTE | 2017-02-20 14:18 | PN- Att Addend ---
Attending MD Review Statement Attending Statement Attending MD Statement: examined this patient, discuss w/resident/PA/GOVERNMENT RELATIONS DIRECTOR, agreed w/resident/PA/GOVERNMENT RELATIONS DIRECTOR, reviewed EMR data (avail), discussed w/nursing, discussed w/ case mgmt Attending Assessment/Plan: Laboratory Tests 02/20/17 0637: Anion Gap 5, Estimated GFR > 60, BUN/Creatinine Ratio 46.4 H, Magnesium 2.5 H Vital Signs Date Time Temp Pulse Resp B/P B/P Pulse O2 O2 Flow FiO2 Mean Ox Delivery Rate 02/20 0925 65 102/44 02/20 0825 97.7 58 20 102/44 95 Nasal Cannula / 0800 91 Nasal 3.0L Cannula 02/20 0000 Nasal 3.0L Cannula 02/19 2248 97.8 67 20 98/50 94 Nasal 3.0L Cannula 02/19 2112 67 98/50 / 1645 96 Nasal 4.0L Cannula 02/19 1634 97.6 64 20 104/44 97 Nasal 4.0L Cannula 02/19 1600 93 Nasal 4.0L Cannula Patient seen and examined at bedside. Discussed with patient the care plan. Elderly thin frail gentleman sitting in the bed at the time of examination in no acute distress. Acute systolic CHF- Patient switched to by mouth Lasix 40 qd from 20 po q6h yesterday. Currently on prednisone 50 mg daily. His echo on done on this admission showed EF of 20-25% suggestive of acute systolic congestive heart failure. We will continue with the above dose of Lasix for now and monitor him closely. We will tolerates to some extent prerenal picture in view of his low EF. His BUN and creatinine today is 51 and 1.1 respectively. Acute hypoxic respiratroy failure- still requiring 3 L oxygen by NC, d/w case management that we will need to arrange oxygen for him. Possible dc tomorrow. Chronic pneumonothorax- Conservative treatment. Recently diagnosed mesothelioma. Will need outpt follow up. Hyponatremia- sodium stable at 131 today. Continue to monitor it closely. Contraction alkalosis- decreased the dose of Lasix to 40 mg by mouth daily today. We will recheck the BMP tomorrow. Deconditioning. -Will get PT consult to see if he needs any Physical therapy.
[2017-02-20 15:30] VITALS: BP 106/60
[2017-02-20 23:00] VITALS: BP 108/62
--- NOTE | 2017-02-21 06:43 | PN- Housestaff ---
Subjective Follow-up For: Acute on chronic hypoxic respiratory failure HFrEF Bacterial pneumonitis Chronic PTX Advanced COPD Tele-Events Since Last Visit: SB, 1 degree AVB, HR 50-60s Subjective: Patient seen and examined. No acute events reported overnight. Remains alert and oriented 3. Resting comfortably in bed with no compliants. Satting well on 2 liters of oxygen although he desats with ambulation. Denies any chest discomfort , palpitations, lightheadedness, dizziness, abdominal pain, n/v/c/d. Review of Systems Constitutional: Reports: see HPI. Objective Last 24 Hrs of Vital Signs/I&O Vital Signs Date Time Temp Pulse Resp B/P B/P Pulse O2 O2 Flow FiO2 Mean Ox Delivery Rate 02/21 0934 92 Nasal 3.0L Cannula 02/21 0928 92 Nasal 2.0L Cannula 02/21 0800 97.7 68 22 92/50 91 Nasal 2.0L Cannula 02/21 0000 Nasal 2.0L Cannula 02/20 2300 97.7 72 24 108/62 92 Nasal 2.0L Cannula 02/20 1646 95 Nasal 3.0L Cannula 02/20 1600 95 Nasal 3.0L Cannula 02/20 1530 97.3 61 16 106/60 94 Nasal 2.0L Cannula Intake & Output 02/21 1600 05 0800 06/05 0000 Intake Total 100 670 Output Total 150 300 825 Balance -150 -200 -155 Intake, IV 0 0 Intake, Oral 100 670 Number 0 0 Bowel Movements Output, Urine 150 300 825 Patient 53.07 kg Weight Weight Chair scale Measurement Method Physical Exam General Appearance: Alert, Oriented X3, Cooperative, No Acute Distress Other Physical Findings: Head: atraumatic Ears, Nose, Throat: normal pharynx, normal ENT inspection Neck: normal inspection Respiratory: normal breath sounds, crackles (Left Sided) Cardiovascular: regular rate/rhythm, systolic murmur Gastrointestinal: normal bowel sounds, soft, non-tender, Epigastric Sclerosis Extremities: normal inspection, no edema Cranial Nerves: impaired hearing, normal speech Current Medications: Current Medications Sig/Evonne Start time Last Medication Dose Route Stop Time Status Admin Acetaminophen 325 MG Q6P PRN 02/14 2015 AC PO Albuterol Sulfate 3 ML TID PRN 02/15 1345 AC INH Allopurinol 200 MG DAILY 02/15 1000 AC 02/20 PO 0926 Apixaban 5 MG BID 02/14 2200 AC 02/20 PO 2044 Aspirin Buffered 81 MG DAILY 02/15 1000 AC 02/20 PO 0925 Cyanocobalamin 1,000 MCG DAILY 02/19 1000 AC 02/20 PO 09 Doxycycline Hyclate 100 MG BID 02/16 1000 AC 02/20 PO 02/22 2201 204 Dronedarone 400 MG BID 02/17 2200 AC 02/20 PO 204 Furosemide 40 MG DAILY 02/20 1000 AC 02/20 PO 09 Insulin Aspart 0 TIDAC 02/15 0800 AC SC Omeprazole 20 MG DAILY 02/15 1000 AC 02/20 PO 09 Oxycodone HCl 5 MG Q6P PRN 02/14 2015 AC PO Oxycodone/ 2 TAB Q6P PRN 02/14 2015 AC Acetaminophen PO Prednisone 10 MG Q48H 03/09 1000 AC PO 03/18 0959 Prednisone 10 MG DAILY 03/04 1000 AC PO 03/08 1001 Prednisone 20 MG DAILY 02/27 1000 AC PO 03/03 1001 Prednisone 40 MG DAILY 02/22 1000 AC PO 02/26 1001 Prednisone 50 MG DAILY 02/16 1000 AC 02/20 PO 02/21 2300 0925 Sodium Chloride 2 SPRAY BID 02/15 2200 AC 02/20 NAVYA 2051 Tiotropium [place] 1 PUF DAILY 02/19 1601 AC 02/20 INH 0926 Last 24 Hrs of Lab/Tang Results Last 24 Hrs of Labs/Mics: Laboratory Tests 02/21/17 0611: Anion Gap 6, Estimated GFR > 60, BUN/Creatinine Ratio 41.0 H, Magnesium 2.5 H Assessment/Plan Assessment: Mr. Merrill is an 81 year old male with PMH malignant mesothelioma , chronic left pneumothorax, severe emphysema, severe cardiomyopathy with low ejection fraction, recent PPM implantation 8 days ago at the [facility], paroxysmal atrial fibrillation on amiodarone and anticoagulation with eliquis, CAD s/p CABG, mild mitral insufficiency, mild-moderate tricuspid insufficiency, gout and HTN who presented to [facility] on 02/14/17 with chief complaint of shortness of breath, non-productive cough and decreased exercise tolerance. 1. Acute on chronic hypoxic respiratory failure, IMPROVING Likely 2/2 CHF exacerbation with a component of chronic PTX, lung cancer, advanced COPD, and possible amiodarone-induced lung toxicity * No further escalation to CPAP/BiPAP/intubation if respiratory status deteriorates per patient's wish * Cont Lasix to 40 mg daily * Continue albuterol neb PRN and Spiriva QD * Continue prednisone taper, 40mg QD x five days -> 20mg QD x 5 days -> 10mg QD x 5 days -> 10mg Q48H x 10 days * While on steroids, continue NSS (coverage to start with FSG >250) * Continue conservative tx of PTX 2. Hypotension, IMPROVING Likely cardiac related in the setting of cardiomyopathy with reduced EF * Lasix as above * Echocardiogram shows LVEF 25%, global hypokinesia, pacemaker wires in R heart chamber . * Continue macias for strict Is/Os, daily weights * Continue to hold lisinopril while hypotensive 3. History of atrial fibrillation * Continue eliquis 5 mg PO BID * Continuous telemetry monitoring for now * Continue multaq 400 mg PO BID (stated this admission) * Patient will need to be monitored on telemetry after downgraded from ICU. 4. Cardiomyopathy with reduced EF * Strict Is/Os/Daily weights * Cardio consult appreciated, continue to follow up recommendations * Continuous telemetry monitoring * Lasix drip for fluid overload which is improving pulmonary status 5. CAD s/p CABG * Continue ASA 81 mg PO daily * Continue to hold statin in setting of slight transaminitis 6. CKD * Monitor renal function * Avoid nephrotoxins 7. History of gout * Continue allopurinol 200 mg PO daily 8. Sacral erythema Non ulcerated, with intact skin integrity. Will apply barrier cream and encourage reposition. DNR/DNI Heart Healthy Diet DVTP: Eliquis Mild to severe pain pathway Problem List: 1. CAD (coronary artery disease) of artery bypass graft 2. HLD (hyperlipidemia) 3. DVT prophylaxis 4. Gout 5. Atrial flutter 6. Pneumothorax on left 7. Pneumonia 8. Transaminitis 9. Palpitations 10. Ischemic cardiomyopathy 11. Congestive heart failure Pain Ratin Pain Location: 0 Pain Goal: Remain pain free Pain Plan: Mild pathway Tomorrow's Labs & Rationales: None
[2017-02-21 08:00] VITALS: BP 92/50
[2017-02-21] MEDS ORDERED: SPIRIVA18 MCG INH (08:49)
[2017-02-21] MEDS ORDERED: DOXYCYCLINE HY100 M2 PO (08:49)
[2017-02-21] MEDS ORDERED: LASIX40 M1 PO (08:49)
[2017-02-21] MEDS ORDERED: MULTAQ400 M1 PO (08:49)
[2017-02-21] MEDS ORDERED: ALBUTEROL2.5 MG/3 M INH (08:49)
[2017-02-21] MEDS ORDERED: PREDNISONE20 M1 PO (08:53)
[2017-02-21] MEDS ORDERED: PREDNISONE10 M2 PO (08:53)
[2017-02-21] MEDS ORDERED: VITAMIN B-121000 MC3 PO (08:53)
--- NOTE | 2017-02-21 09:07 | Patient Discharge Instructions ---
Discharge Instructions General Discharge Information You were seen/treated for: [place] Heart failure Advanced COPD Special Instructions: Please follow up with Dr. Hartman (unit aid) and Dr. Ledesma (santa's helper) within 1 week of discharge. Acute Coronary Syndrome Inclusion Criteria At DC or during hospital stay patient has or had the following: ACS DIAGNOSIS No Discharge Core Measures Meds if any: Prescribed or Continued at Discharge Meds if any: NOT Prescribed or Continued at Discharge Congestive Heart Failure Inclusion Criteria At DC or during hospital stay patient has or had the following: CHF DIAGNOSIS No Discharge Core Measures Meds if any: Prescribed or Continued at Discharge Meds if any: NOT Prescribed or Continued at Discharge Cerebrovascular accident Inclusion Criteria At DC or during hospital stay patient has or had the following: CVA/TIA Diagnosis No Discharge Core Measures Meds if any: Prescribed or Continued at Discharge Meds if any: NOT Prescribed or Continued at Discharge Venous thromboembolism Inclusion Criteria VTE Diagnosis No VTE Type NONE VTE Confirmed by (Test) NONE Discharge Core Measures - Per Current guidelines, there needs to be overlap - treatment for the first 5 days of Warfarin therapy. - If discharged on Warfarin prior to 5 days of - overlap therapy, the patient will need to be - assessed for post discharge needs including - *Post discharge parental anticoagulation - *Warfarin and/or parental anticoagulation education - *Follow up date to check INR post discharge At least 5 days overlap therapy as Inpatient No Meds if any: Prescribed or Continued at Discharge Note: Overlap Therapy is Warfarin and Anticoagulant Meds if any: NOT Prescribed or Continued at Discharge
--- NOTE | 2017-02-21 09:26 | NUR ---
PT WAS 92 ON 2L AT REST, PT WAS 84 ON 2L W/AMBULATION WAS UNABLE TO TEST OFF 02 SINCE HE WAS ONLY 84 ON 2L W/AMBULATION LUCA CHRISTOPHER CM AWARE
--- NOTE | 2017-02-21 11:06 | Discharge Summary ---
Visit Information Visit Dates Admission Date: 02/14/17 Discharge Date: 02/21/17 Hospital Course Course Attending Physician: ERI MCLAUGHLIN MD Primary Care Physician: NEEMA CRAIN MD Consulting Request: Consulting Specialty: Pulmonary Disease Consulting Physician: Dr. Mclaughlin [facility] Course: Mr. Merrill is an 81 year old male with PMH malignant mesothelioma , chronic left pneumothorax, severe emphysema, severe cardiomyopathy with low ejection fraction, recent PPM implantation 8 days prior to admission at the [facility], paroxysmal atrial fibrillation on amiodarone and anticoagulation with eliquis, CAD s/p CABG, mild mitral insufficiency, mild-moderate tricuspid insufficiency, gout and HTN who presented to [facility] on 02/14/17 with chief complaint of shortness of breath, non-productive cough and decreased exercise tolerance for three days. In the ED: Vital signs showed T 96.8, HR 117, RR 28, BP 104/64 and O2 sat 63% on room air. He was put on 100% nonrebreather with improvement of saturations to 96% Labs were significant for WBC 11 with no bands, H&H 13.9/43.2, Na 133, K 4.6, BUN/cre 24/1.1, Glu 207, TBili 1.4, AST 37, ALT 85, alk phos 140, trop 0.01, proBNP 2430, INR 3.12. CXR was performed and showed moderate left pneumothorax increased in size from 06/16/16. Bilateral airspace opacities suggestive of new infiltrates. New pacer electrodes in RA and RV. Patient was admitted to the ICU and the following was the management: 1. Acute on chronic hypoxic respiratory failure: Likely 2/2 combination of bilateral pleural effusions, bilateral airspace disease, malignant mesothelioma, possible fluid overload and possible amiodarone induced lung toxicity. Patient's wishes were for no CPAP/BiPAP/intubation/central line. Conservative treatment was done for his chronic PTX. He was brought to the ICU with high flow nasal cannula and initiated on IV ceftriaxone and doxycycline. IV solumedrol was also started from admission. Amiodarone (a home medication since 01/19) was held due to concern for amiodarone induced lung toxicity. Patient continued to require about 60% FiO2 so IV dobutamine was started through a peripheral IV so that IV lasix drip could diurese noted pulmonary edema as seen on CXR. Respiratory status improved with the lasix drip and FiO2 was able to be titrated down. IV solumedrol was switched to PO prednisone and patient will sent to or on prednisone taper. Patient was thus stable for transfer to the floor and was transferred to telemetry floor and he states there for couple of days and stable enough to discharge to short-term rehabilitation.. Continue to follow pulmonary recommendations from Dr. Callie MD and continue to provide supplemental O2 as needed to maintain an O2 sat >88%. Titrate PO prednisone per pulm recommendations. Patient was desaturated to low 80s on ambulation and would be discharged on home oxygen. 2. Hypotension: Borderline low BP on admission likely 2/2 HFrEF/cardiomyopathy. His home lisinopril was held from admission. Patient was started on a dobutamine drip with improvement in blood pressure/mean arterial pressure. An echocardiogram was obtained and showed EF 20% global hypokinesia, pacemaker wires in R heart chamber. Dobutamine was continued until 02/18/17. Lasix drip was discontinued at that time and PO lasix should be resumed form 02/19/17. We'll resume his home dose of lisinopril on discharge with holding parameters to hold if blood pressure less than 90 systolic 3. History of atrial fibrillation: Patient was continued on eliquis 5 mg PO BID and kept on the teletypesetter monitor continuously. Cardiology consult was obtained. Records obtained from the [place] noted that patient was started on amiodarone on 01/19. This was resumed initially but after persistent concerns of amiodarone side effects, it was discontinued and patient was started on multaq 400 mg PO BID. 4. Cardiomyopathy with reduced EF: Patient was placed on strict Is/Os/daily weights. He had his oral lasix held and he was initiated on a lasix drip for fluid overload resulting in hypoxic respiratory failure. IV lasix was transitioned to PO lasix on 02/19/17. 5. CAD s/p CABG: [place] home aspirin 81 mg PO daily was continued from admission. Home statin was held due to transaminitis. Continue to trend LFTs as outpatient by PCP and resume statin once normalized. 6. CKD: NO acute worsening of renal function appreciated during ICU stay. Nephrotoxins were avoided. Renal function was trended daily as patient was being aggressively diuresed. 7. History of gout: Patient was continued on home allopurinol 200 mg PO daily. 8. Code status: DNR/DNI 9. DVTP: Eliquis 10. Diet: Heart Healthy Diet Complications: none Allergies: Coded Allergies: NO KNOWN ALLERGIES (06/04/12) Significant Procedures: Chest/Abdomen/Pelvis CT: IMPRESSION: 1. Left apical pneumothorax, increased in size since the prior examination dated 06/16/2016. Significant interval increase in bilateral bullous emphysema, most prominent within the right lung base. 2. New diffuse bilateral ground-glass opacities, which could represent fluid overload. An infectious process cannot be excluded. Bilateral fibrotic changes, increased since the prior examination. 3. Small right-sided pleural effusion. Redemonstration of bilateral pleural thickening. 4. Prominent sigmoid diverticulosis without adjacent inflammatory change to suggest acute diverticulitis. 5. Diffuse atherosclerotic calcifications throughout the abdominal aorta and its branch vessels. Focal abdominal aortic aneurysm just proximal to the bifurcation which measures up to 2.9 cm. Echo: CONCLUSIONS 1. This was a technically difficult and limited examination due to the patient's body habitus and clinical status. 2. Aortic sclerosis is present with minimal to mild aortic insufficiency. There is no significant valvular stenosis. 3. Mitral leaflet thickening is present with mild to moderate anular calcification and mild mitral insufficiency with mild to moderate left atrial enlargement. 4. There is no significant pericardial fluid present. 5. The left ventricular chamber is upper normal in size. There is global hypokinesia present which appears worse in the anteroseptal, apical and inferobasal segments. The ejection fraction is approximately 25%. 6. The right heart structures are grossly normal. Mild to moderate tricuspid insufficiency is present with minimal to mild pulmonic insufficiency and an estimated RV systolic pressure of 36 mmHg. 7. Pacemaker wires are present in the right heart chambers. 8. If clinically indicated, a MUGA scan might be useful in this patient. Disposition Summary Disposition Principal Diagnosis: Acute on chronic hypoxic respiratory failure Additional Diagnosis: Hypotension Discharge Disposition: SNF Discharge Instructions General Discharge Information Code Status: Do Not Resucitate/Intubat Patient's Diet: Heart healthy diet Patient's Activity: As tolerated with assistance Follow-Up Instructions/Appts: These follow-up with your primary care physician in one week of discharge Please follow-up with pulmonology in one week of discharge Please take medications as prescribed Medications at Discharge Discharge Medications: Stop taking the following medications: Amiodarone HCl (Amiodarone HCl) 200 MG TABLET ORAL DAILY Furosemide (Furosemide) 20 MG TABLET ORAL DAILY Continue taking these medications: Omeprazole (Omeprazole) 20 MG CAPSULE. 1 Capsule ORAL DAILY Comments: Last Taken:02/21/17 Time:1000 Aspirin (Ecotrin*) 81 MG TABLET. 1 Tablet ORAL DAILY Comments: Last Taken:02/21/17 Time:1000 Allopurinol (Allopurinol) 100 MG TABLET 2 Tablet ORAL DAILY Comments: Last Taken:02/21/17 Time:1000 Apixaban (Eliquis) 5 MG TABLET 1 Tablet ORAL TWICE DAILY Days = 30 Comments: Last Taken: 02/21/17 Time: 9:30 AM Lisinopril (Lisinopril) 2.5 MG TABLET 1 Tablet ORAL DAILY Atorvastatin Calcium (Atorvastatin Calcium) 40 MG TABLET 1 Tablet ORAL Every night Comments: Last Taken:02/20/17 Time:1700 Start taking the following new medications: Doxycycline Hyclate (Doxycycline Hyclate) 100 MG CAPSULE 100 Milligram ORAL TWICE DAILY Qty = 2 No Refills Comments: Last Taken:02/21/17 Time:1000 Tiotropium [place] (Spiriva) 18 MCG CAP.W.DEV 1 Puff Inhale through mouth DAILY Days = 30 No Refills Comments: Last Taken:02/21/17 Time:1000 Albuterol Sulfate (Albuterol Sulfate) 2.5 MG/3 ML (0.083 %) VIAL.NEB 3 Milliliters Inhale through mouth THREE TIMES DAILY as needed for SHORTNESS OF BREATH Days = 30 No Refills Comments: Last Taken:02/21/17 Time:1000 Dronedarone HCl (Multaq) 400 MG TABLET 400 Milligram ORAL TWICE DAILY Days = 30 No Refills Comments: Last Taken:02/21/17 Time:1000 Furosemide (Lasix) 40 MG TABLET 40 Milligram ORAL DAILY Days = 30 No Refills Comments: Last Taken:02/21/17 Time:1000 Prednisone (Prednisone) 20 MG TABLET 40 Milligram ORAL DAILY Days = 5 No Refills Instructions: Start on 02/21 End on 02/25 Comments: Last Taken:02/21/17 Time:1000 50MG GIVEN Prednisone (Prednisone) 20 MG TABLET 20 Milligram ORAL DAILY Days = 5 No Refills Instructions: Start on 02/26 End on 03/02 Prednisone (Prednisone) 10 MG TABLET 10 Milligram ORAL SEE INSTRUCTIONS Qty = 10 No Refills Instructions: DATE DOSE 03/03 10MG DAILY 03/08 10MG EVERY OTHER DAY Cyanocobalamin (Vitamin B-12) 1,000 MCG TABLET 1,000 Microgram ORAL DAILY Days = 30 No Refills Comments: Last Taken:02/21/17 Time:1000 Copies To: BREANN WALKER,NEEMA Attending MD Review Statement Documenting Attending: RASHAD WALKER,COURTNEY Pop Other Findings: Please see my separate attending note for more details. Agree with above.
--- NOTE | 2017-02-21 11:18 | PN- Att Addend ---
Attending MD Review Statement Attending Statement Attending MD Statement: examined this patient, discuss w/resident/PA/PIN WORKER, agreed w/resident/PA/PIN WORKER, reviewed EMR data (avail), discussed w/nursing, discussed w/ case mgmt Attending Assessment/Plan: Laboratory Tests 02/21/17 0611: Anion Gap 6, Estimated GFR > 60, BUN/Creatinine Ratio 41.0 H, Magnesium 2.5 H Vital Signs Date Time Temp Pulse Resp B/P B/P Pulse O2 O2 Flow FiO2 Mean Ox Delivery Rate 02/21 1040 96/64 02/21 1030 Nasal 3.0L Cannula 02/21 0934 92 Nasal 3.0L Cannula 02/21 0928 92 Nasal 2.0L Cannula 02/21 0800 97.7 68 22 92/50 91 Nasal 2.0L Cannula 02/21 0000 Nasal 2.0L Cannula 02/20 2300 97.7 72 24 108/62 92 Nasal 2.0L Cannula / 1646 95 Nasal 3.0L Cannula / 1600 95 Nasal 3.0L Cannula / 1530 97.3 61 16 106/60 94 Nasal 2.0L Cannula Patient seen and examined at bedside. Discussed with patient the care plan. Elderly thin frail gentleman in no acute distress. Acute systolic CHF/ COPD exacerbation- Patient on by mouth Lasix 40 qd . Currently on prednisone 50 mg daily. On prednisone taper, tomorrow will start with 40mg po prednisone. His echo on done on this admission showed EF of 20-25% suggestive of acute systolic congestive heart failure. We will continue with the above dose of Lasix for now and monitor him closely. We will tolerates to some extent prerenal picture in view of his low EF. His BUN and creatinine today is better as above. Acute hypoxic respiratroy failure- still requiring 3 L oxygen by NC, Pt likely going to go to rehab. Chronic pneumonothorax- Conservative treatment. Recently diagnosed mesothelioma. Will need outpt follow up. Hyponatremia- sodium stable at 131 today. Continue to monitor it closely. Contraction alkalosis- resolving. Deconditioning. -PT recommending MORELIA, d/w pt and he is ok with that. Case management to d/w pt rehab options.
[2017-02-21 11:37] VITALS: BP 96/64
--- NOTE | 2017-02-21 12:02 | PN- Cardiology ---
Subjective Subjective: Well. Shortness of breath significantly improved. No chest pain. No palpitations. No nausea or vomiting. No lightheadedness. Objective Vital Signs and I&Os Vital Signs Date Time Temp Pulse Resp B/P B/P Pulse O2 O2 Flow FiO2 Mean Ox Delivery Rate 02/21 1137 97.7 68 22 96/64 02/21 1040 96/64 02/21 1030 Nasal 3.0L Cannula 02/21 0934 92 Nasal 3.0L Cannula 02/21 0928 92 Nasal 2.0L Cannula 02/21 0800 97.7 68 22 92/50 91 Nasal 2.0L Cannula 02/21 0000 Nasal 2.0L Cannula 02/20 2300 97.7 72 24 108/62 92 Nasal 2.0L Cannula 02/20 1646 95 Nasal 3.0L Cannula 02/20 1600 95 Nasal 3.0L Cannula 02/20 1530 97.3 61 16 106/60 94 Nasal 2.0L Cannula Intake & Output 02/21 1600 02/21 0800 02/21 0000 02/20 1600 02/20 0800 02/20 0000 Intake Total 100 670 600 150 560 Output Total 150 300 825 500 575 350 Balance -150 -200 -155 100 -425 210 Intake, IV 0 0 Intake, Oral 100 670 600 150 560 Number 0 0 0 Bowel Movements Output, Urine 150 300 825 500 575 350 Patient 117 lb 116 lb Weight Weight Chair scale Chair scale Measurement Method Physical Exam: Gen: NAD HEENT: normal Lungs: clear to auscultation, normal resp. effort Heart: RRR, S1, S2, no murmurs Abdomen: Soft, nontender, no masses Extremities: No clubbing, cyanosis, or edema. Neuro: Alert and oriented x 3, cranial nerves intact Current Medications: Current Medications Sig/Evonne Start time Last Medication Dose Route Stop Time Status Admin Acetaminophen 325 MG Q6P PRN 02/14 2015 AC PO Albuterol Sulfate 3 ML TID PRN 02/15 1345 AC INH Allopurinol 200 MG DAILY 02/15 1000 AC 02/21 PO 1040 Apixaban 5 MG BID 02/14 2200 AC 02/21 PO 1039 Aspirin Buffered 81 MG DAILY 02/15 1000 AC 02/21 PO 1039 Cyanocobalamin 1,000 MCG DAILY 02/19 1000 AC 02/21 PO 1040 Doxycycline Hyclate 100 MG BID 02/16 1000 AC 02/21 PO 02/22 2201 1040 Dronedarone 400 MG BID 02/17 2200 AC 02/21 PO 1040 Furosemide 40 MG DAILY 02/20 1000 AC 02/21 PO 1039 Insulin Aspart 0 TIDAC 02/15 0800 AC SC Omeprazole 20 MG DAILY 02/15 1000 AC 02/21 PO 1040 Oxycodone HCl 5 MG Q6P PRN 02/14 2015 AC PO Oxycodone/ 2 TAB Q6P PRN 02/14 2015 AC Acetaminophen PO Prednisone 10 MG Q48H 03/09 1000 AC PO 03/18 0959 Prednisone 10 MG DAILY 03/04 1000 AC PO 03/08 1001 Prednisone 20 MG DAILY 02/27 1000 AC PO 03/03 1001 Prednisone 40 MG DAILY 02/22 1000 AC PO 02/26 1001 Prednisone 50 MG DAILY 02/16 1000 AC 02/21 PO 02/21 2300 1040 Sodium Chloride 2 SPRAY BID 02/15 2200 AC 02/21 NAVYA 1042 Tiotropium Stovall 1 PUF DAILY 02/19 1601 AC 02/21 INH 1042 Results Last 48 Hrs of Labs/Mics: Laboratory Tests 02/21/17 0611: Anion Gap 6, Estimated GFR > 60, BUN/Creatinine Ratio 41.0 H, Magnesium 2.5 H 02/20/17 0637: Anion Gap 5, Estimated GFR > 60, BUN/Creatinine Ratio 46.4 H, Magnesium 2.5 H Assessment/Plan Assessment/Plan 1. Hypoxemic respiratory failure improved 2. CAD, status post CABG 3. Cardiomyopathy, ischemic versus tachycardia mediated 4. Paroxysmal atrial flutter, currently in sinus rhythm 5. Recent permanent pacemaker placement 6. Chronic systolic heart failure, with possible acute exacerbation, improved with diuresis Plan: * Continue by mouth Lasix. * Continue other cardiac medications. * Follow up with Dr. Hartman 1 to 2 weeks after discharge. Continue telemetry? No
--- NOTE | 2017-02-21 18:50 | PN- Pulmonary ---
Subjective HPI/Critical Care Issues: doing well afebrile on 3 litres Objective Current Medications: Current Medications Sig/Evonne Start time Last Medication Dose Route Stop Time Status Admin Acetaminophen 325 MG Q6P PRN 02/14 2015 DCD PO Albuterol Sulfate 3 ML TID PRN 02/15 1345 DCD INH Allopurinol 200 MG DAILY 02/15 1000 DCD 02/21 PO 1040 Apixaban 5 MG BID 02/14 2200 DCD 02/21 PO 1039 Aspirin Buffered 81 MG DAILY 02/15 1000 DCD 02/21 PO 1039 Cyanocobalamin 1,000 MCG DAILY 02/19 1000 DCD 02/21 PO 1040 Doxycycline Hyclate 100 MG BID 02/16 1000 DCD / PO 02/22 2201 1040 Dronedarone 400 MG BID 02/17 2200 DCD 02/21 PO 1040 Furosemide 40 MG DAILY 02/20 1000 DCD 02/21 PO 1039 Insulin Aspart 0 TIDAC 02/15 0800 DCD SC Omeprazole 20 MG DAILY 02/15 1000 DCD 02/21 PO 1040 Oxycodone HCl 5 MG Q6P PRN 02/14 2015 DCD PO Oxycodone/ 2 TAB Q6P PRN 02/14 2015 DCD Acetaminophen PO Prednisone 10 MG Q48H 03/09 1000 DCD PO 03/18 0959 Prednisone 10 MG DAILY 03/04 1000 DCD PO 03/08 1001 Prednisone 20 MG DAILY 02/27 1000 DCD PO 03/03 1001 Prednisone 40 MG DAILY 02/22 1000 DCD PO 02/26 1001 Prednisone 50 MG DAILY 02/16 1000 DCD 02/21 PO 02/21 2300 1040 Sodium Chloride 2 SPRAY BID 02/15 2200 DCD 02/21 NAVYA 1042 Tiotropium Concho 1 PUF DAILY 02/19 1601 DCD 02/21 INH 1042 Vital Signs & I&O Last 24 Hrs of Vitals and I&O: Vital Signs Date Time Temp Pulse Resp B/P B/P Pulse O2 O2 Flow FiO2 Mean Ox Delivery Rate 02/21 1137 97.7 68 22 96/64 06/05 1040 96/64 06/ 1030 Nasal 3.0L Cannula 02/21 0934 92 Nasal 3.0L Cannula 02/21 0928 92 Nasal 2.0L Cannula 02/21 0800 97.7 68 22 92/50 91 Nasal 2.0L Cannula 02/21 0000 Nasal 2.0L Cannula 02/20 2300 97.7 72 24 108/62 92 Nasal 2.0L Cannula Intake & Output 02/21 1600 06/05 0800 06/ 0000 Intake Total 100 670 Output Total 150 300 825 Balance -150 -200 -155 Intake, IV 0 0 Intake, Oral 100 670 Number 0 0 Bowel Movements Output, Urine 150 300 825 Patient 117 lb Weight Weight Chair scale Measurement Method Impression/Plan Impression/Plan Impression/Plan: Physical Exam General Appearance: well developed/nourished, alert, awake, anxious, thin Head: atraumatic, normal appearance Eyes: Bilateral: normal appearance, PERRL, EOMI. Ears, Nose, Throat: normal pharynx, normal ENT inspection Neck: normal inspection, supple, full range of motion, no midline tenderness Respiratory: chest non-tender, decreased breath sounds, mild accessory muscle use, crackles, wheezing, respiratory distress Cardiovascular: regular rate/rhythm, normal peripheral pulses, norml femoral pulses equa Peripheral Pulses: 4+ carotid (R), 4+ carotid (L) Gastrointestinal: normal bowel sounds, soft, non-tender, no organomegaly Extremities: normal inspection, normal capillary refill, normal range of motion, no edema Neurologic/Psych: no motor/sensory deficits, awake, alert, oriented x 3, mortgage loan assistant II- XII nml as tested Skin: intact, normal color, warm/dry Lymphatic: no anterior cervical deandre IMPRESSION This is an unfortunate 81-year-old gentleman with history of severe cardiomyopathy, paroxysmal atrial fibrillation on amiodarone and anticoagulation , previous history of coronary artery disease with CABG, cardiomyopathy with low ejection fraction, moderate mitral insufficiency with mild to moderate tricuspid insufficiency, Recently diagnosed agg malignant mesothelioma (bx done from his abd wall rectus sheath), chronic left pleural effusion now has * Resolving Severe hypoxemic respiratory failure which appears to be combination of factors which include aggressive malignant mesothelioma with bilateral pleural effusion, thick pleural rind in the right side, bilateral airspace disease suggestive of either fluid overload or drug-induced lung disease with advancing mesothelioma. Patient may be in mild congestive heart failure aswell, HIs blood pressure is low with low ejection fraction. * Worsening performance status in the recent past with poor appetite related to malignant mesothelioma and severe cardiomyopathy ( recent bx at [facility] c/w malignant mesothelioma * Chronic left pneumothorax which is slowly increasing in size is also contributing to shortness of breath * Severe lung disease with emphysema with significant pleural blebs, significant bronchiectasis within the anterior medial aspect of the right upper lobe with rounded atelectasis and chronic pleural parenchymal scarring with previous mucous plugging and chronic lung disease, now with bilateral infiltrates rule out Drug induced lung disease * Significant valvular heart disease with mitral regurgitation and tricuspid regurgitation * History of Severe cardiomyopathy with low ejection fraction with valvular heart disease with low flow state with low blood pressure with ef of 25 * Paroxysmal atrial fibrillation now appears to be in sinus rhythm with left bundle branch block * Chronic kidney disease * 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 * Cont oxygen and reduce to keep sat of 92 * Seven day of doxy total * Lasix 40 mg daily * Po prednisone 40 qd for five days, 20 x 5 days 20 for five and 10 for five and 10 qod for 10 days * Albuterol only nebulizer therapy prn from now on * Spiriva qd * Multaq * Continue allopurinol and proton pump inhibitor * Continue his eloquis * Vitamin B12 2000 units by mouth daily * No therapy is necessary for his pneumothorax. 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
== END 2017-02-21 14:10 | DRG 189 ==
LOC: ERH 11:07 → ERHI 13:14 → 1NO 13:14 → CRI 13:14 → 1NO 13:14 → CANRESERV 14:30 → ENRESERV 14:30 → CMPBEDREQ 17:14 → ENRESERV 17:41 → ERHI 17:46 → ENTRNSPT 21:25 → EDTRNSPTTYP 21:39 → EDTRNSPT 21:39 → CRI 21:46 → CMPTRNSPT 22:12 → 1NO 02-18 18:31 → ENPENDDIS 02-21 09:35 → 1NO 02-21 14:10
PROVIDERS: Emergency Medicine; Student in an Organized Health Care Education/Training Program; ADMIT Internal Medicine
DX: J96.01 Acute respiratory failure with hypoxia (principal); I50.23 Acute on chronic systolic (congestive) heart failure; E22.2 Syndrome of inappropriate secretion of antidiuretic hormone; I42.9 Cardiomyopathy, unspecified; I48.92 Unspecified atrial flutter; I48.0 Paroxysmal atrial fibrillation; I48.2 Chronic atrial fibrillation; J93.81 Chronic pneumothorax; C45.9 Mesothelioma, unspecified; Z95.1 Presence of aortocoronary bypass graft; J43.9 Emphysema, unspecified; T46.2X5A Adverse effect of other antidysrhythmic drugs, initial encounter; Z79.01 Long term (current) use of anticoagulants; Z95.0 Presence of cardiac pacemaker; I25.10 Atherosclerotic heart disease of native coronary artery without angina pectoris; I10 Essential (primary) hypertension; E78.5 Hyperlipidemia, unspecified; M10.9 Gout, unspecified; Z66 Do not resuscitate
CPT/HCPCS: 1NSP; CCU; 36415; 74176; 81001; 82436; 87040; 87070; 87086; 87449; 87450; 93005; 93010; 93306; 97116-GO; 97161-GP; 99291; J0696; J1644; J1940; J2930; J3370; J7040; J7060; J7512

== ENCOUNTER 2017-03-17 16:16 | Emergency (ER) | payer OTHER, MEDICARE ==
[~2017-03-17] VITALS: Ht 162.6 cm; Wt 51.7 kg
[~2017-03-17 16:16] MED LIST changes: +ALBUTEROL2.5 MG/3 M INH; +AMIODARONE HCL200 M1 PO; +ATORVASTATIN CA40 M1 PO; +DOXYCYCLINE HY100 M2 PO; +FUROSEMIDE20 M1 PO; +LASIX40 M1 PO; +LISINOPRIL2.5 M1 PO; +MULTAQ400 M1 PO; +PREDNISONE10 M2 PO; +PREDNISONE20 M1 PO; +SPIRIVA18 MCG INH; +VITAMIN B-121000 MC3 PO
--- NOTE | 2017-03-17 16:50 | ED GENERAL ADULT ---
History of Present Illness General Chief Complaint: General Adult Stated Complaint: COUGHING UP BLOOD Source: patient, family, old records Exam Limitations: no limitations Vital Signs & Intake/Output Vital Signs & Intake/Output Vital Signs Date Time Temp Pulse Resp B/P B/P Pulse O2 O2 Flow FiO2 Mean Ox Delivery Rate 03/17 2231 98.1 84 21 95/54 96 Nasal 2.5L Cannula 03/178 89 22 94/50 94 Nasal 3.0L Cannula 03/17 2012 98.2 91 22 98/58 93 Nasal 3.0L Cannula 03/17 1743 97 Nasal 2.0L Cannula 03/17 1737 98.7 03/17 1622 99.3 112 24 147/68 91 Nasal 3.0L Cannula Allergies Coded Allergies: NO KNOWN ALLERGIES (06/04/12) Reconcile Medications Albuterol Sulfate 2.5 MG/3 ML (0.083 %) VIAL.NEB 3 ML INH TID PRN SHORTNESS OF BREATH Allopurinol 100 MG TABLET 2 TAB PO DAILY GOUT (Reported) Apixaban (Eliquis) 5 MG TABLET 1 TAB PO BID Blood thinner Aspirin (Ecotrin*) 81 MG TABLET.DR 1 TAB PO DAILY HEART HEALTH (Reported) Atorvastatin Calcium 40 MG TABLET 1 TAB PO QPM HIGH CHOLESTROL (Reported) Cyanocobalamin (Vitamin B-12) 1,000 MCG TABLET 1,000 MCG PO DAILY VITAMIN SUPPL Dronedarone HCl (Multaq) 400 MG TABLET 400 MG PO BID HEART Furosemide (Lasix) 40 MG TABLET 40 MG PO DAILY DIURETICS Lisinopril 2.5 MG TABLET 1 TAB PO DAILY HIGH BLOOD PRESSURE (Reported) Omeprazole 20 MG CAPSULE.DR 1 CAP PO DAILY ACID REFLUX (Reported) Prednisone 10 MG TABLET 10 MG PO SEE ADMIN CRITERIA STEROID TAPER DATE DOSE 03/03 10MG DAILY 03/08 10MG EVERY OTHER DAY Tiotropium Velva (Spiriva) 18 MCG CAP.W.DEV 1 PUF INH DAILY BREATHING Triage Note: RECEIVED 81 YO MALE BIBA FROM HOME WITH HX OF AFIB, PNA, LUNG CA AND PACER, D[facility] 10 DAYS A[facility], C/O STARTED COUGHING UP BLOOD ABOUT ONE HOUR LATEXER. PT O2 DEPENDANT AT HOME. PT ON 2L O2 VIA N/C. MOIST COUGH NOTED. LLOYD VELASCO IN TO EVALUATE PT UPON ARRIVAL. O2 SATS 91 % ON 3L O2 VIA N/C. Triage Nurses Notes Reviewed? yes Onset: Abrupt Duration: hour(s): (2-3), continues in ED Timing: single episode today Severity: mild, moderate No Modifying Factors: none Associated Symptoms: cough HPI: 81-year-old male with a history of A. fib on Eliquis, lung cancer, pacemaker, coronary artery disease and hypertension presents for evaluation of hemoptysis. Patient reports earlier today he started having a gradually worsening cough. The cough was initially dry but throughout the day started to become productive of dark bloody sputum. During a coughing fit patient became nauseous and vomited a large amount of dark red blood. Patient reports that there is also blood clots in his vomit. Currently patient reports mild pain in the center of his chest that he feels is related to coughing. He denies shortness of breath. Patient is on home O2 at 2 L via nasal cannula. Patient was recently discharged from after an inpatient stay for pneumonia treatment. He denies any abdominal pain, fevers, shortness of breath, back pain, nausea, diarrhea. His beam warper is Dr. Hartman. (LLOYD CASTILLO PA-C) Past History Travel History Traveled to [place] past 21 day No Medical History Any Pertinent Medical History? see below for history Neurological: NONE EENT: NONE Cardiovascular: aflutter, CAD, hyperlipidemia, PACER Respiratory: MESOTHELIOMA PNEUMOTHORAX Gastrointestinal: NONE Hepatic: NONE Renal: NONE Musculoskeletal: gout Psychiatric: NONE Endocrine: NONE Blood Disorders: NONE Cancer(s): MESOTHELIOMA CORPORATE HEALTH CONSULTANT/Reproductive: NONE History of MRSA: No History of VRE: No History of CDIFF: No Surgical History Surgical History: CABG, hernia repair-inguinal Psychosocial History Who do you live with Patient/Self Services at Home None What is your primary language Turkish Tobacco Use: Quit >30 days ago Family History Family History, If Any: BROTHER (smoker ). AICD (automatic internal cardiac defibrillator) FH: heart attack FATHER FH: cancer MOTHER (smoker ). . FH: abdominal aortic aneurysm Hx Contributory? Yes (LLOYD CASTILLO PA-C) Review of Systems Review of Systems Constitutional: Reports: no symptoms. EENTM: Reports: no symptoms. Respiratory: Reports: see HPI, cough, hemoptysis. Cardiovascular: Reports: see HPI, chest pain. GI: Reports: no symptoms. Genitourinary: Reports: no symptoms. Musculoskeletal: Reports: no symptoms. Skin: Reports: no symptoms. Neurological/Psychological: Reports: no symptoms. Hematologic/Endocrine: Reports: no symptoms. Immunologic/Allergic: Reports: no symptoms. All Other Systems: Reviewed and Negative (LLOYD CASTILLO PA-C) Physical Exam Physical Exam General Appearance: well developed/nourished, no apparent distress, alert, awake , anxious Head: atraumatic, normal appearance Eyes: Bilateral: normal appearance, PERRL, EOMI. Ears, Nose, Throat: normal pharynx, normal ENT inspection, hearing decreased, THERE IS DRIED BLOOD AROUND THE MOUTH AND THE POSTERIOR PHARYNX Neck: normal inspection, supple, full range of motion Respiratory: normal breath sounds, chest non-tender, no respiratory distress, lungs clear Cardiovascular: regular rate/rhythm, normal peripheral pulses Peripheral Pulses: 2+ radial (R), 2+ radial (L), 2+ dorsalis pedis (R), 2+ dorsalis pedis (L) Gastrointestinal: normal bowel sounds, soft, non-tender, no organomegaly Rectal: normal exam, normal rectal tone, heme negative stool Back: normal inspection, normal range of motion Extremities: normal inspection, normal capillary refill, normal range of motion, no edema Neurologic/Psych: no motor/sensory deficits, awake, alert, oriented x 3, normal gait, normal mood/affect Reflexes: 2+: knee (R), knee (L). Skin: intact, normal color, warm/dry Lymphatic: no anterior cervical deandre Core Measures ACS in differential dx? Yes CVA/TIA Diagnosis: No Severe Sepsis Present: No Septic Shock Present: No (LLOYD CASTILLO PA-C) Progress Differential Diagnoses I considered the following diagnoses in my evaluation of the patient: [Pulmonary embolism, Caroline-James tear, Boerhaave's syndrome, peptic ulcer disease, gastritis, lung cancer, pneumonia, acute coronary syndrome, posterior epistaxis] Plan of Care: Orders Procedure Date/time Status Regular Diet 03/18 B Active Vital Signs 03/17 2024 Complete Activity/Ambulation 03/17 2024 Complete Telemetry/Human Resources Consultant 03/17 163 Active TROPONIN LEVEL 03/17 1639 Complete PARTIAL THROMBOPLASTIN TIME 03/17 163 Complete PROTHROMBIN TIME 03/17 1639 Complete D-DIMER 03/17 1639 Complete COMPREHENSIVE METABOLIC PANEL 03/17 1639 Complete CBC WITHOUT DIFFERENTIAL 03/17 1639 Complete B-TYPE NATRIURETIC PEP (BNP) 03/17 1639 Complete EKG 03/17 1639 Active Laboratory Tests 03/17/17 1704: Anion Gap 8, Estimated GFR > 60, BUN/Creatinine Ratio 30.0 H, Glucose 110 H, Calcium 8.4, Total Bilirubin 1.0, AST 41, ALT 71, Alkaline Phosphatase 93, Troponin I < 0.01, [id number]-[id number] Pept 1130 H, Total Protein 5.4 L, Albumin 3.0 L, Globulin 2.4, Albumin/Globulin Ratio 1.3, PT 20.0 H, INR 1.92 H, APTT 35, D-Dimer High Sensitivty 363 H, CBC w Diff NO MAN DIFF REQ, RBC 4.74, MCV 75.1 L, MCH 24.4 L, RDW 18.1 H, MPV 7.2 L, Gran % 73.0, Lymphocytes % 13.4 L, Monocytes % 10.9 H, Eosinophils % 2.5, Basophils % 0.2, Absolute Granulocytes 4.1, Absolute Lymphocytes 0.7 L, Absolute Monocytes 0.6, Absolute Eosinophils 0.1, Absolute Basophils 0, PUBS MCHC 32.4 L Patient has visible blood around his mouth. He is hemodynamically stable. He will have basic blood work including coagulation, EKG, chest x-ray. Due to recent hospitalization he'll also have a CTA of his chest to rule out PE. We'll follow-up on results. 8:25 PM: CTA is negative for pulmonary embolism. It does show increasing size of a chronic pneumothorax. Radiologist estimates that is proximally 40-50%. It is increased from the previous chest x-ray back in February 14. Patient is still reporting mild cough and is feeling short of breath. Patient was ambulated well on 2 L nasal cannula and desaturated into the low 80s. He is normally on 2 L nasal cannula at home and is able to maintain oxygen saturation in the low 90s. His blood pressure has also been rechecked and drops from 140s systolic to 90 systolic. Patient will be admitted for observation due to decreased oxygen saturation and shortness of breath with enlarging pneumothorax. Case discussed with Dr. Purvis. 17. Discussed case with on-call hospitalist and ICU attending here at [facility]. There is a concern from the attendings here that if patient were to have massive hemoptysis he would not be able to have a bronchoscopy. Patient will be transferred to [facility] to be admitted to a telemetry floor for monitoring and pulmonary consult. Discussed case with Dr. Ruth who is the hospitalist. He will accept the patient (LLOYD CASTILLO PA-C) Initial ED EKG: UNKNOWN RHYTHM (PACEMAKER) IRREGULAR RATE, PROBABLE LEFT ATRIAL ABN, LVH, BORDERLINE PROLONGED QTC Comments: PATIENT: LISA ELEDR PRESENT AGE: 81 PATIENT ACCOUNT NO: [id number] : 35 LOCATION: [facility] ORDERING PHYSICIAN: LLOYD CASTILLO PA-C SERVICE DATE: 03/17/17 EXAM TYPE: RAD - XRY-PORTABLE CHEST XRAY EXAMINATION: XR PORTABLE CHEST CLINICAL INFORMATION: Coughing up blood. COMPARISON: Chest x-ray 02/17/2017, CT chest 02/14/2017. Portable chest 02/14/2017 TECHNIQUE: Portable frontal view of the chest was obtained. 4:42 PM FINDINGS: The volume of the left-sided pneumothorax is similar to the chest x-ray of 02/14/2017. There is diffuse groundglass bilateral airspace disease. This is less dense in the mid right lung on current study compared with prior study of 02/14/2017. The diffuse groundglass airspace disease in the left lung is similar. Status post median sternotomy. Pacemaker lead in right atrial and right ventricle. Lead placement unchanged since prior study. IMPRESSION: 1. Persistent left-sided pneumothorax. 2. Persistent bilateral airspace disease but there is improved aeration in the mid right lung compared with chest x-ray of 02/14/2017. 3. Status post median sternotomy. Pacemaker leads unchanged position. DICTATED BY: WILLA HAMPTON MD DATE/TIME DICTATED:03/17/171706 MACHINE FILLER SHREDDER:LEE DATE/TIME TRANSCRIBED:03/17/171706 CONFIDENTIAL, DO NOT COPY WITHOUT APPROPRIATE AUTHORIZATION. <Electronically signed in Other Vendor System> SIGNED BY: WILLA HAMPTON MD 03/17/17 5596 (LLOYD CASTILLO PA-C) Departure Departure Disposition: OTHER [facility] (AC[facility]) Condition: Stable Clinical Impression Primary Impression: Hemoptysis Secondary Impressions: Hypoxia Referrals: NEEMA CRAIN MD (PCP/Family) Departure Forms: Customer Survey General Discharge Information (LLOYD CASTILLO PA-C) PA/ARCHITECTURAL TECHNICIAN Co-Sign Statement Statement: ED Attending supervision documentation- x I saw and evaluated the patient. I have also reviewed all the pertinent lab results and diagnostic results. I agree with the findings and the plan of care as documented in the PA's/ARCHITECTURAL TECHNICIAN's documentation. [] I have reviewed the ED Record and agree with the PA's/ARCHITECTURAL TECHNICIAN's documentation. [] Additions or exceptions (if any) to the PAs/ARCHITECTURAL TECHNICIAN's note and plan are summarized below: [] (VERNELL WALKER,BRIT) Critical Care Note Critical Care Note Critical Care Time: non-applicable (ANNA MACIEL,LLOYD)
--- NOTE | 2017-03-17 17:14 | RADIOLOGY REPORT ---
EXAMINATION: XR PORTABLE CHEST CLINICAL INFORMATION: Coughing up blood. COMPARISON: Chest x-ray 02/17/2017, CT chest 02/14/2017. Portable chest 02/14/2017 TECHNIQUE: Portable frontal view of the chest was obtained. 4:42 PM FINDINGS: The volume of the left-sided pneumothorax is similar to the chest x-ray of 02/14/2017. There is diffuse groundglass bilateral airspace disease. This is less dense in the mid right lung on current study compared with prior study of 02/14/2017. The diffuse groundglass airspace disease in the left lung is similar. Status post median sternotomy. Pacemaker lead in right atrial and right ventricle. Lead placement unchanged since prior study. IMPRESSION: 1. Persistent left-sided pneumothorax. 2. Persistent bilateral airspace disease but there is improved aeration in the mid right lung compared with chest x-ray of 02/14/2017. 3. Status post median sternotomy. Pacemaker leads unchanged position.
[2017-03-17 17:15] LABS: ABSOLUTE BASOPHIL COUNT 0 /CUMM (0.0-0.2); ABSOLUTE EOSINOPHIL COUNT 0.1 /CUMM (0.0-0.7); ABSOLUTE GRANULOCYTE CT 4.1 /CUMM (1.4-6.5); ABSOLUTE LYMPH COUNT 0.7 /CUMM (1.2-3.4); ABSOLUTE MONOCYTE COUNT 0.6 /CUMM (0.10-0.60); BASOPHIL % 0.2 % (0.0-2.0); EOSINOPHIL % 2.5 % (0-5); HEMATOCRIT 35.6 % (42-52); MEAN CORPUSCULAR HGB 24.4 PG (27.0-31.0); MEAN CORPUSCULAR HGB CONC 32.4 G/DL (33.0-37.0); MEAN CORPUSCULAR VOLUME 75.1 FL (80.0-94.0); MEAN PLATELET VOLUME 7.2 FL (7.4-10.4); PLATELET COUNT 241 /CUMM (130-400); RBC DISTRIBUTION WIDTH 18.1 % (11.5-14.5); RED BLOOD CELL CT 4.74 /CUMM (4.70-6.10); WHITE BLOOD CELL COUNT 5.6 /CUMM (4.8-10.8)
[2017-03-17 17:22] LABS: PTT 35 SEC (25-37)
--- NOTE | 2017-03-17 19:59 | CT SCAN REPORT ---
EXAMINATION: CT ANGIOGRAM OF THE CHEST WITH AND WITHOUT CONTRAST (CT PULMONARY ANGIOGRAM FOR PE) CLINICAL INFORMATION: Coughing up blood. COMPARISON: Chest CT 02/14/2017. TECHNIQUE: Prior to contrast administration, noncontrast localization images were obtained. Subsequently, multidetector volumetric imaging was performed from the thoracic inlet to below the diaphragms following the administration of 80 mL Omnipaque 350 intravenous contrast. No contrast reaction reported. Sagittal, coronal, and MIP oblique sagittal reformatted images were obtained on the CT workstation, uploaded to PACS, and reviewed. FINDINGS: No central, lobar, segmental, or subsegmental pulmonary bullae are identified. The known left-sided pneumothorax appears stable in comparison to today's earlier chest x-ray there is increased in size in comparison to a chest CT from 05/17/2017 and is associated with partial collapse of the left upper lobe, significant collapse of the lingula, and partial collapse of the left lower lobe. There is a small peripherally enhancing right pleural effusion exhibiting a split pleura sign and there is a small non-peripherally enhancing left pleural effusion. Background chronic fibrotic changes throughout the lungs that are greatest at the lung bases. Superimposed groundglass opacities throughout the left greater than right lung that may reflect underlying infectious or inflammatory process or that may reflect pulmonary edema. These findings have improved in comparison to the previous study. Similar band like atelectasis within the right middle lobe. The thyroid gland is normal. There is no mediastinal and there is no hilar lymphadenopathy. There is coronary artery atherosclerotic calcification. The heart appears normal in size. No pericardial effusion. Partially imaged upper abdomen unremarkable. No acute osseous findings. Diffuse idiopathic skeletal hyperostosis throughout the mid to lower thoracic spine. Thoracic spondylosis. Median sternotomy wires. Left pectoral pacemaker. IMPRESSION: - No pulmonary emboli. - Interval increase in size of the moderate-sized left pneumothorax in comparison to studies dated back to 02/14/2017, similar in size to the 03/17/2017 chest x-ray with associated partial collapse of the left lung. No mediastinal shift. - There is a small right pleural effusion exhibiting a split pleural sign which is stable in comparison to chest CT studies back to 02/10/2016. This could reflect chronic reactive pleural thickening next to the effusion though chronic empyema should be considered in the appropriate clinical context. Adjacent airspace opacity within the right lower lobe may reflect pneumonia or atelectasis. Small left pleural effusion. - Chronic interstitial lung disease with superimposed groundglass opacities throughout the left greater than right lung that may be infectious or inflammatory in etiology or that may reflect superimposed pulmonary edema or alveolar hemorrhage in light of the history. Bullous disease is again noted bilaterally. Findings discussed with Dr. Morgan at 7:54 PM on 03/17/2017.
[2017-03-18 00:24] VITALS: BP 90/54
== END 2017-03-17 22:30 | disposition short-term general hospital (02) ==
LOC: ERH 16:16
PROVIDERS: Physician Assistant Medical
DX: R04.2 Hemoptysis (principal); R09.02 Hypoxemia
CPT/HCPCS: 93005; 93010